=== PATIENT | female | born 1935 | race Caucasian/White ===

== ENCOUNTER → 2016-06-16 | Outpatient (CLI) | payer MEDICARE ==
[~2016-06-16] MED LIST: ARTIDRO EACH EYE; CANA1TAB4 PO; FOSA70TA PO; GLIP5 PO; JANT5TAB2 PO; LISI-357 PO; METO50TA PO; ROSU10 PO
[2016-06-16 12:56] LABS: HEMATOCRIT 41.4 % (35.0-46.0); MEAN CELL VOLUME 81.4 FL (80.0-100.0); MEAN CORPUSCULAR HEMOGLOBIN 26.3 PG (27.0-34.0); MEAN CORPUSCULAR HGB CONC 32.3 % (32.0-36.0); PLATELET COUNT 333 TH/MM3 (150-450); RED BLOOD COUNT 5.09 MIL/MM3 (4.00-5.30); RED CELL DISTRIBUTION WIDTH 13.4 % (11.6-17.2); REVIEW FLAG FINAL; WHITE BLOOD COUNT 8.3 TH/MM3 (4.0-11.0)
[2016-06-16 13:37] LABS: ALKALINE PHOSPHATASE 74 U/L (45-117); ALT (GPT) 25 U/L (10-53); ANION GAP 7 MEQ/L (5-15); AST (GOT) 14 U/L (15-37); BLOOD UREA NITROGEN 15 MG/DL (7-18); CHLORIDE 103 MEQ/L (98-107); GLOMERULAR FILTRATION RATE 65 ML/MIN (>89); GLUCOSE,FASTING 164 MG/DL (74-99); LDL CHOLESTEROL 115 MG/DL (0-99); LDL CHOLESTEROL DIRECT 141 MG/DL (0-99); POTASSIUM 5.2 MEQ/L (3.5-5.1); SODIUM (NA) 140 MEQ/L (136-145); TOTAL BILIRUBIN ADULT 0.3 MG/DL (0.2-1.0)
[2016-06-16 16:22] LABS: HEMOGLOBIN A1a 1.4 %; HEMOGLOBIN A1b 1.2 %; HEMOGLOBIN Ao 79.4 %; HEMOGLOBIN F 1.9 %; HEMOGLOBIN LA1C 2.4 %; HEMOGLOBIN P3 4.7 %
== END ==
LOC: PLAB 08:44
PROVIDERS: ATTEND Internal Medicine
DX: E11.65 Type 2 diabetes mellitus with hyperglycemia (principal); I10 Essential (primary) hypertension; E78.5 Hyperlipidemia, unspecified
CPT/HCPCS: 36415; 80053; 80061; 82043; 83036; 83721; 85027

== ENCOUNTER → 2016-07-29 | Outpatient (CLI) | payer MEDICARE ==
[2016-07-29 13:47] LABS: ANION GAP 8 MEQ/L (5-15); AST (GOT) 16 U/L (15-37); BICARBONATE 27.4 MEQ/L (21.0-32.0); BLOOD UREA NITROGEN 12 MG/DL (7-18); CHLORIDE 106 MEQ/L (98-107); GLOMERULAR FILTRATION RATE 69 ML/MIN (>89); GLUCOSE,FASTING 216 MG/DL (74-99); POTASSIUM 4.7 MEQ/L (3.5-5.1); SODIUM (NA) 141 MEQ/L (136-145)
[2016-07-29 13:56] LABS: ALKALINE PHOSPHATASE 54 U/L (45-117); ALT (GPT) 23 U/L (10-53); TOTAL BILIRUBIN ADULT 0.4 MG/DL (0.2-1.0)
[2016-07-29 16:17] LABS: HEMOGLOBIN A1a 1.4 %; HEMOGLOBIN A1b 1.1 %; HEMOGLOBIN Ao 79.2 %; HEMOGLOBIN F 1.8 %; HEMOGLOBIN LA1C 2.9 %; HEMOGLOBIN P3 4.8 %
[2016-07-29 16:47] LABS: MICRO ALBUMIN RANDOM URINE RAW 17.6 MG/L (0.0-30.0)
== END ==
LOC: PLAB 08:39
PROVIDERS: ATTEND Internal Medicine
DX: I10 Essential (primary) hypertension (principal); E11.65 Type 2 diabetes mellitus with hyperglycemia
CPT/HCPCS: 36415; 80053; 82043; 83036

== ENCOUNTER → 2016-10-28 | Outpatient (CLI) | payer MEDICARE ==
[2016-10-28 13:52] LABS: HEMATOCRIT 41.8 % (35.0-46.0); MEAN CELL VOLUME 83.1 FL (80.0-100.0); MEAN CORPUSCULAR HGB CONC 32.5 % (32.0-36.0); PLATELET COUNT 242 TH/MM3 (150-450); RED BLOOD COUNT 5.03 MIL/MM3 (4.00-5.30); RED CELL DISTRIBUTION WIDTH 13.9 % (11.6-17.2); REVIEW FLAG FINAL; WHITE BLOOD COUNT 7.1 TH/MM3 (4.0-11.0)
[2016-10-28 14:15] LABS: ANION GAP 9 MEQ/L (5-15); AST (GOT) 20 U/L (15-37); BICARBONATE 25.8 MEQ/L (21.0-32.0); BLOOD UREA NITROGEN 13 MG/DL (7-18); CHLORIDE 107 MEQ/L (98-107); GLOMERULAR FILTRATION RATE 63 ML/MIN (>89); GLUCOSE,FASTING 109 MG/DL (74-99); POTASSIUM 4.2 MEQ/L (3.5-5.1); SODIUM (NA) 142 MEQ/L (136-145)
[2016-10-28 14:22] LABS: ALKALINE PHOSPHATASE 56 U/L (45-117); ALT (GPT) 23 U/L (10-53); LDL CHOLESTEROL 46 MG/DL (0-99); LDL CHOLESTEROL DIRECT 56 MG/DL (0-99); TOTAL BILIRUBIN ADULT 0.5 MG/DL (0.2-1.0)
[2016-10-28 14:28] LABS: MICRO ALBUMIN RANDOM URINE RAW 33.8 MG/L (0.0-30.0)
[2016-10-28 16:46] LABS: HEMOGLOBIN A1a 1.3 %; HEMOGLOBIN A1b 1.1 %; HEMOGLOBIN Ao 81.8 %; HEMOGLOBIN F 1.6 %; HEMOGLOBIN LA1C 2.1 %; HEMOGLOBIN P3 4.1 %
== END ==
LOC: PLAB 09:20
PROVIDERS: ATTEND Internal Medicine
DX: E11.65 Type 2 diabetes mellitus with hyperglycemia (principal); I10 Essential (primary) hypertension; E78.5 Hyperlipidemia, unspecified
CPT/HCPCS: 36415; 80053; 80061; 82043; 83036; 83721; 85027

== ENCOUNTER → 2017-02-27 | Outpatient (CLI) | payer MEDICARE ==
[2017-02-27 13:11] LABS: HEMATOCRIT 42.7 % (35.0-46.0); MEAN CELL VOLUME 84.8 FL (80.0-100.0); MEAN CORPUSCULAR HGB CONC 31.8 % (32.0-36.0); PLATELET COUNT 300 TH/MM3 (150-450); RED BLOOD COUNT 5.04 MIL/MM3 (4.00-5.30); RED CELL DISTRIBUTION WIDTH 14.5 % (11.6-17.2); REVIEW FLAG FINAL
[2017-02-27 13:30] LABS: MICRO ALBUMIN RANDOM URINE RAW 19.5 MG/L (0.0-30.0)
[2017-02-27 13:40] LABS: ANION GAP 4 MEQ/L (5-15); AST (GOT) 22 U/L (15-37); BLOOD UREA NITROGEN 13 MG/DL (7-18); CHLORIDE 110 MEQ/L (98-107); GLOMERULAR FILTRATION RATE 55 ML/MIN (>89); GLUCOSE,FASTING 146 MG/DL (74-99); POTASSIUM 5.5 MEQ/L (3.5-5.1); SODIUM (NA) 143 MEQ/L (136-145)
[2017-02-27 13:41] LABS: HEMOGLOBIN A1a 1.3 %; HEMOGLOBIN A1b 1.1 %; HEMOGLOBIN F 1.5 %; HEMOGLOBIN LA1C 2.3 %; HEMOGLOBIN P3 4.2 %
[2017-02-27 13:44] LABS: ALKALINE PHOSPHATASE 67 U/L (45-117); ALT (GPT) 22 U/L (10-53); HDL CHOLESTEROL 53.5 MG/DL (40.0-60.0); LDL CHOLESTEROL 113 MG/DL (0-99); LDL CHOLESTEROL DIRECT 136 MG/DL (0-99); TOTAL BILIRUBIN ADULT 0.3 MG/DL (0.2-1.0)
== END ==
LOC: PLAB 08:40
PROVIDERS: ATTEND Internal Medicine
DX: E11.65 Type 2 diabetes mellitus with hyperglycemia (principal); I10 Essential (primary) hypertension; Z13.9 Encounter for screening, unspecified
CPT/HCPCS: 36415; 80053; 80061; 82043; 83036; 83721; 85027

== ENCOUNTER → 2017-07-10 | Outpatient (CLI) | payer MEDICARE ==
[2017-07-10 10:32] LABS: HEMATOCRIT 36.8 % (35.0-46.0); HEMOGLOBIN 11.8 GM/DL (11.6-15.3); MEAN CELL VOLUME 83.8 FL (80.0-100.0); MEAN CORPUSCULAR HEMOGLOBIN 26.9 PG (27.0-34.0); MEAN CORPUSCULAR HGB CONC 32.1 % (32.0-36.0); PLATELET COUNT 345 TH/MM3 (150-450); RED BLOOD COUNT 4.39 MIL/MM3 (4.00-5.30); RED CELL DISTRIBUTION WIDTH 13.9 % (11.6-17.2)
[2017-07-10 10:59] LABS: ALBUMIN 3.5 GM/DL (3.4-5.0); AST (GOT) 20 U/L (15-37); BICARBONATE 26.3 MEQ/L (21.0-32.0); BLOOD UREA NITROGEN 21 MG/DL (7-18); CALCIUM 9.2 MG/DL (8.5-10.1); CHLORIDE 108 MEQ/L (98-107); CHOLESTEROL 118 MG/DL (120-200); CREATININE 0.88 MG/DL (0.50-1.00); GLOMERULAR FILTRATION RATE 62 ML/MIN (>89); GLUCOSE,FASTING 168 MG/DL (74-99); SODIUM (NA) 141 MEQ/L (136-145)
[2017-07-10 11:01] LABS: ALKALINE PHOSPHATASE 72 U/L (45-117); ALT (GPT) 17 U/L (10-53); CHOLESTEROL/ HDL RATIO 2.65 RATIO; HDL CHOLESTEROL 44.4 MG/DL (40.0-60.0); LDL CHOLESTEROL 40 MG/DL (0-99); LDL CHOLESTEROL DIRECT 62 MG/DL (0-99); TOTAL BILIRUBIN ADULT 0.3 MG/DL (0.2-1.0); TOTAL PROTEIN 7.4 GM/DL (6.4-8.2); TRIGLYCERIDES 169 MG/DL (42-150)
[2017-07-10 16:20] LABS: HEMOGLOBIN A1C 7.5 % (4.3-6.0)
== END ==
LOC: PLAB 08:37
PROVIDERS: ATTEND Internal Medicine
DX: I48.91 Unspecified atrial fibrillation (principal); E11.65 Type 2 diabetes mellitus with hyperglycemia; I10 Essential (primary) hypertension
CPT/HCPCS: 36415; 80053; 80061; 82043; 83036; 83721; 85027

== ENCOUNTER 2017-07-18 11:09 | Inpatient (IN) | payer MEDICARE ==
[~2017-07-18] VITALS: Ht 160 cm; Wt 78.8 kg
[2017-07-18 11:17] VITALS: BP 171/72; PULSE 85; RESP 16; TEMP 99; O2SAT 94
[2017-07-18] MEDS ORDERED: GLIP10TA6 PO (12:55)
[2017-07-18] MEDS ORDERED: METO50TA PO (12:55)
[2017-07-18] MEDS ORDERED: ATOR20TA15 PO (12:55)
[2017-07-18] MEDS ORDERED: APIX5TAB PO (12:55)
[2017-07-18] MEDS ORDERED: LISI-519 PO (12:55)
[2017-07-18] MEDS ORDERED: FOSA70TA PO (12:55)
[2017-07-18] MEDS ORDERED: CANA1TAB4 PO (12:55)
--- NOTE | 2017-07-18 13:23 | PD ---
HPI Chief Complaint: GI Complaint Time Seen by Provider: 13:22 Travel History International Travel<30 days: No Contact w/Intl Traveler<30days: No Traveled to known affect area: No History of Present Illness HPI 81-year-old female came to the emergency room with history of rectal bleed that started last night. This morning the bleeding was significant and hence she is here. She is on blood thinner. No history of lightheadedness or dizziness. Vital signs are stable. This has never happened to her in the past. She had a colonoscopy many years ago which showed diverticulitis as per the patient. [facility] Past Medical History Narrative Medical The list of past medical, surgical, social and family history is from the nursing note. Hx Anticoagulant Therapy: Yes Heart Rhythm Problems: Yes Cancer: No Cardiovascular Problems: Yes (htn on meds) High Cholesterol: Yes Cerebrovascular Accident: Yes (cva, tia's) Diabetes: Yes (type 2) Patient Takes Glucophage: Yes Diminished Hearing: No Endocrine: Yes Glaucoma: No Genitourinary: Yes Hepatitis: No Hiatal Hernia: No Hypertension: Yes Immune Disorder: No Kidney Stones: Yes Musculoskeletal: No Neurologic: Yes Psychiatric: No Reproductive: No Respiratory: No Thyroid Disease: No Influenza Vaccination: Yes ?: Not Tubal Ligation: Yes Past Surgical History Eye Surgery: Yes (BILATERAL UPPER BLEPH) Gynecologic Surgery: Yes (TUBAL LIGATION) Pacemaker: No Other Surgery: Yes Social History Alcohol Use: No Tobacco Use: No Substance Use: No Allergies-Medications (Allergen,Severity, Reaction): Coded Allergies: No Known Allergies (Verified Allergy, Unknown, 07/18/17) Comments No known drug allergies Reported Meds & Prescriptions Reported Meds & Active Scripts Active Reported Metoprolol Tartrate 50 Mg Tab 50 Mg PO DAILY Invokamet (Canagliflozin-Metformin) 150-1,000 Mg Tab 1 Tab PO DAILY Take with meals. Avoid ethanol. Lisinopril 5 Mg Tab 5 Mg PO DAILY Glipizide 10 Mg Tab 10 Mg PO BIDAC Take 30 minutes before a meal Eliquis (Apixaban) 5 Mg Tab 5 Mg PO DAILY Fosamax (Alendronate Sodium) 70 Mg Tab 70 Mg PO Q7D Atorvastatin (Atorvastatin Calcium) 20 Mg Tab 20 Mg PO HS Narrative Medication List of his home medications reviewed from the nursing note. Review of Systems Except as stated in HPI: all other systems reviewed are Neg Gastrointestinal: Positive: Hematochezia Physical Exam Narrative GENERAL: Awake, alert, obese, mild distress SKIN: Focused skin assessment warm/dry. HEAD: Atraumatic. Normocephalic. EYES: Pupils equal and round. No scleral icterus. No injection or drainage. ENT: No nasal bleeding or discharge. Mucous membranes pink and moist. NECK: Trachea midline. No JVD. CARDIOVASCULAR: Regular rate and rhythm. No murmur appreciated. RESPIRATORY: No accessory muscle use. Clear to auscultation. Breath sounds equal bilaterally. GASTROINTESTINAL: Abdomen soft, non-tender, nondistended. Hepatic and splenic margins not palpable. MUSCULOSKELETAL: No obvious deformities. No clubbing. No cyanosis. No edema. NEUROLOGICAL: Awake and alert. No obvious cranial nerve deficits. Motor grossly within normal limits. Normal speech. PSYCHIATRIC: Appropriate mood and affect; insight and judgment normal. Data Data Last Documented VS Vital Signs Date Time Temp Pulse Resp B/P (MAP) Pulse Ox O2 Delivery O2 Flow Rate FiO2 07/18/17 14:20 78 95/79 (84) 92 07/18/17 14:01 16 07/18/17 11:17 99.0 Orders Orders Iv Access Insert/Monitor (07/18/17 13:17) Complete Blood Count With Diff (07/18/17 13:17) Basic Metabolic Panel (Bmp) (07/18/17 13:17) Admit Order (Ed Use Only) (07/18/17 14:59) Labs Laboratory Tests Test 07/18/17 13:59 White Blood Count 9.6 TH/MM3 Red Blood Count 4.28 MIL/MM3 Hemoglobin 11.2 GM/DL Hematocrit 34.4 % Mean Corpuscular Volume 80.2 FL Mean Corpuscular Hemoglobin 26.2 PG Mean Corpuscular Hemoglobin Concent 32.7 % Red Cell Distribution Width 12.9 % Platelet Count 420 TH/MM3 Mean Platelet Volume 7.5 FL Neutrophils (%) (Auto) 74.5 % Lymphocytes (%) (Auto) 18.3 % Monocytes (%) (Auto) 5.7 % Eosinophils (%) (Auto) 1.2 % Basophils (%) (Auto) 0.3 % Neutrophils # (Auto) 7.2 TH/MM3 Lymphocytes # (Auto) 1.8 TH/MM3 Monocytes # (Auto) 0.5 TH/MM3 Eosinophils # (Auto) 0.1 TH/MM3 Basophils # (Auto) 0.0 TH/MM3 CBC Comment DIFF FINAL Differential Comment Blood Urea Nitrogen 17 MG/DL Creatinine 0.71 MG/DL Random Glucose 100 MG/DL Calcium Level 8.8 MG/DL Sodium Level 140 MEQ/L Potassium Level 4.8 MEQ/L Chloride Level 109 MEQ/L Carbon Dioxide Level 22.3 MEQ/L Anion Gap 9 MEQ/L Estimat Glomerular Filtration Rate 79 ML/MIN MDM Medical Decision Making Medical Screen Exam Complete: Yes Emergency Medical Condition: Yes Medical Record Reviewed: Yes Differential Diagnosis Lower GI bleed, upper GI bleed Narrative Course 1:39 PM after I saw the patient examined her and discussed the plan with the patient and the family I came out and I was told by the second physician that he had already seen this patient. I will not be following this patient anymore but because I had done the rectal exam I have done the documentation. Procedures EKG Prior to Arrival: No HemaPrompt Point of Care Internal Pos. & Neg. Controls: Passed Fecal Specimen Occult Blood: Positive Jessi Velasquez MD Jul 18, 2017 13:22
--- NOTE | 2017-07-18 13:25 | PD ---
HPI Chief Complaint: GI Complaint Time Seen by Provider: 13:08 Travel History International Travel<30 days: No Contact w/Intl Traveler<30days: No Traveled to known affect area: No History of Present Illness HPI The patient was seen and examined in the presence of the nurse. This patient complains of rectal bleeding. Started yesterday evening. She had some bright red rectal bleeding. No prior history of rectal bleeding. She is taking Eliquis for history of A. fib. Had a colonoscopy 3 years ago. Symptoms severity is mild to moderate. No alleviating factors. Symptoms exacerbated by her anticoagulants. Duration one day PFSH Past Medical History Hx Anticoagulant Therapy: Yes Heart Rhythm Problems: Yes Cancer: No Cardiovascular Problems: Yes (htn on meds) High Cholesterol: Yes Cerebrovascular Accident: Yes (cva, tia's) Diabetes: Yes (type 2) Patient Takes Glucophage: Yes Diminished Hearing: No Endocrine: Yes Glaucoma: No Genitourinary: Yes Hepatitis: No Hiatal Hernia: No Hypertension: Yes Immune Disorder: No Kidney Stones: Yes Musculoskeletal: No Neurologic: Yes Psychiatric: No Reproductive: No Respiratory: No Thyroid Disease: No Influenza Vaccination: Yes ?: Not Tubal Ligation: Yes Past Surgical History Eye Surgery: Yes (BILATERAL UPPER BLEPH) Gynecologic Surgery: Yes (TUBAL LIGATION) Pacemaker: No Other Surgery: Yes Social History Alcohol Use: No Tobacco Use: No Substance Use: No Allergies-Medications (Allergen,Severity, Reaction): Coded Allergies: No Known Allergies (Verified Adverse Reaction, Unknown, 07/18/17) Reported Meds & Prescriptions Reported Meds & Active Scripts Active Reported Metoprolol Tartrate 50 Mg Tab 50 Mg PO DAILY Invokamet (Canagliflozin-Metformin) 150-1,000 Mg Tab 1 Tab PO DAILY Take with meals. Avoid ethanol. Lisinopril 5 Mg Tab 5 Mg PO DAILY Glipizide 10 Mg Tab 10 Mg PO BIDAC Take 30 minutes before a meal Eliquis (Apixaban) 5 Mg Tab 5 Mg PO DAILY Fosamax (Alendronate Sodium) 70 Mg Tab 70 Mg PO Q7D Atorvastatin (Atorvastatin Calcium) 20 Mg Tab 20 Mg PO HS Review of Systems General / Constitutional: No: Fever Eyes: No: Visual changes HENT: No: Headaches Cardiovascular: Positive: Irregular Rhythm, No: Chest Pain or Discomfort Respiratory: No: Shortness of Breath Gastrointestinal: Positive: Hematochezia, No: Abdominal Pain Genitourinary: No: Dysuria Musculoskeletal: No: Pain Skin: No Rash Neurologic: No: Weakness Psychiatric: No: Depression Endocrine: No: Polydipsia Hematologic/Lymphatic: No: Easy Bruising Physical Exam Narrative GENERAL: Well-nourished, well-developed patient in no apparent distress. SKIN: Focused skin assessment reveals no rash and nodules. Skin is Warm and dry. HEAD: Atraumatic. Normocephalic. EYES: Pupils equal and round. No scleral icterus. No injection or drainage. ENT: No nasal bleeding or discharge. Mucous membranes pink and moist. NECK: Trachea midline. No JVD. CARDIOVASCULAR: Irregularly irregular rhythm. No murmur appreciated. RESPIRATORY: No accessory muscle use. Clear to auscultation. Breath sounds equal bilaterally. GASTROINTESTINAL: Abdomen soft, non-tender, nondistended. Hepatic and splenic margins not palpable. MUSCULOSKELETAL: No obvious deformities. No clubbing. No cyanosis. No edema. NEUROLOGICAL: Awake and alert. No obvious cranial nerve deficits. Motor grossly within normal limits. Normal speech. PSYCHIATRIC: Appropriate mood and affect; insight and judgment normal. Rectal: No external hemorrhoid or fissure. There is some dried blood around the anal opening Data Data Last Documented VS Vital Signs Date Time Temp Pulse Resp B/P (MAP) Pulse Ox O2 Delivery O2 Flow Rate FiO2 07/18/17 14:20 78 95/79 (84) 92 07/18/17 14:01 16 07/18/17 11:17 99.0 Orders Orders Iv Access Insert/Monitor (07/18/17 13:17) Complete Blood Count With Diff (07/18/17 13:17) Basic Metabolic Panel (Bmp) (07/18/17 13:17) Labs Laboratory Tests Test 07/18/17 13:59 White Blood Count 9.6 TH/MM3 Red Blood Count 4.28 MIL/MM3 Hemoglobin 11.2 GM/DL Hematocrit 34.4 % Mean Corpuscular Volume 80.2 FL Mean Corpuscular Hemoglobin 26.2 PG Mean Corpuscular Hemoglobin Concent 32.7 % Red Cell Distribution Width 12.9 % Platelet Count 420 TH/MM3 Mean Platelet Volume 7.5 FL Neutrophils (%) (Auto) 74.5 % Lymphocytes (%) (Auto) 18.3 % Monocytes (%) (Auto) 5.7 % Eosinophils (%) (Auto) 1.2 % Basophils (%) (Auto) 0.3 % Neutrophils # (Auto) 7.2 TH/MM3 Lymphocytes # (Auto) 1.8 TH/MM3 Monocytes # (Auto) 0.5 TH/MM3 Eosinophils # (Auto) 0.1 TH/MM3 Basophils # (Auto) 0.0 TH/MM3 CBC Comment DIFF FINAL Differential Comment Blood Urea Nitrogen 17 MG/DL Creatinine 0.71 MG/DL Random Glucose 100 MG/DL Calcium Level 8.8 MG/DL Sodium Level 140 MEQ/L Potassium Level 4.8 MEQ/L Chloride Level 109 MEQ/L Carbon Dioxide Level 22.3 MEQ/L Anion Gap 9 MEQ/L Estimat Glomerular Filtration Rate 79 ML/MIN MDM Medical Decision Making Medical Screen Exam Complete: Yes Emergency Medical Condition: Yes Medical Record Reviewed: Yes Differential Diagnosis AV malformation, diverticulosis, internal hemorrhoid, medication side effect Narrative Course I have reviewed the patient's electronic medical record. Patient had lab studies is ago that I reviewed including hemoglobin of 11.8 drawn 8 days ago IV placed CBC shows hemoglobin 11.2 Metabolic profile reasonably normal Patient has new-onset bright red rectal bleeding in the setting of Eliquis therapy for A. fib. Given that she is on a blood thinner which is not reversible and that she has no personal GI doctor to follow up with I think it prudent to hospitalize her I reviewed with hospitalist who will admit Diagnosis Primary Impression: Rectal bleeding Additional Impressions: Atrial fibrillation Qualified Codes: I48.2 - Chronic atrial fibrillation Anticoagulated Admitting Information Admitting Physician Requests: Admit Nestor Linder MD Jul 18, 2017 13:24
[2017-07-18 14:01] VITALS: BP 190/90; PULSE 76; RESP 16; O2SAT 92
[2017-07-18 14:09] LABS: AUTOMATED NEUTROPHIL # 7.2 TH/MM3 (1.8-7.7); BASOPHIL % 0.3 % (0.0-2.0); EOSINOPHIL # 0.1 TH/MM3 (0-0.4); EOSINOPHIL % 1.2 % (0.0-4.0); HEMATOCRIT 34.4 % (35.0-46.0); HEMOGLOBIN 11.2 GM/DL (11.6-15.3); LYMPH % 18.3 % (9.0-44.0); LYMPHOCYTE # 1.8 TH/MM3 (1.0-4.8); MEAN CELL VOLUME 80.2 FL (80.0-100.0); MEAN CORPUSCULAR HEMOGLOBIN 26.2 PG (27.0-34.0); MEAN CORPUSCULAR HGB CONC 32.7 % (32.0-36.0); MEAN PLATELET VOLUME 7.5 FL (7.0-11.0); MONO % 5.7 % (0.0-8.0); MONOCYTE # 0.5 TH/MM3 (0-0.9); NEUT % 74.5 % (16.0-70.0); PLATELET COUNT 420 TH/MM3 (150-450); RED BLOOD COUNT 4.28 MIL/MM3 (4.00-5.30); RED CELL DISTRIBUTION WIDTH 12.9 % (11.6-17.2); WHITE BLOOD COUNT 9.6 TH/MM3 (4.0-11.0)
[2017-07-18 14:20] VITALS: BP 95/79; PULSE 78; O2SAT 92
[2017-07-18 14:22] LABS: CALCIUM 8.8 MG/DL (8.5-10.1)
[2017-07-18 14:23] LABS: BICARBONATE 22.3 MEQ/L (21.0-32.0)
[2017-07-18 14:26] LABS: CREATININE 0.71 MG/DL (0.50-1.00)
[2017-07-18 15:14] VITALS: BP 185/93; PULSE 72; RESP 16; O2SAT 98
[2017-07-18] MEDS ORDERED: SODIUM CHLOR 0.9% 1000 ML INJ 1,000 ML IV SCH (15:22)
[2017-07-18] MEDS ORDERED: NALOXONE HCL 0.4 MG/ML AMP IV PUSH PRN (15:30)
[2017-07-18] MEDS ORDERED: ACETAMINOPHEN 325 MG TAB PO PRN (15:30)
[2017-07-18] MEDS ORDERED: SODIUM CHLORIDE 0.9% FLUSH 10 ML FLUSH IV FLUSH PRN (15:30)
[2017-07-18] MEDS ORDERED: ONDANSETRON HCL 4 MG/2 ML VIAL IVP PRN (15:30)
--- NOTE | 2017-07-18 15:44 | HHI.HP ---
[facility] Service [facility] Primary Care Physician Nahede Green MD Admission Diagnosis rectal bleeding, anticoagulated Diagnoses: (1) Rectal bleeding Diagnosis: Principal Chief Complaint: Bright red blood per rectum Travel History International Travel<30 Days: No Contact w/Intl Traveler <30 Da: No Traveled to Known Affected Are: No History of Present Illness 81-year-old female with known history of hypertension, diabetes, history TIA, atrial fibrillation, anticoagulated on Eliquis who presented to the emergency department because of bright red blood in the toilet. Patient states that it started last night when she went to the bathroom and noticed a couple spots of bright red blood on the toilet paper. However this morning when she had a bowel movement she noticed that there was red blood mixed with her stool and also in the toilet. Because of that reason she came to emergency department for evaluation. Patient denies any actual pain, no lightheadedness, dizziness, shortness of breath, dyspnea. Hemoglobin was 11.2. Patient is anticoagulated on Eliquis secondary to atrial fibrillation and previous stroke. Because of that reason is recommended that the patient be admitted the hospital for further evaluation and management. She indicates that she had colonoscopy done approximately 8 years ago and at that time she was told that she had diverticulosis. She has not had any follow-up endoscopy since then. Review of Systems Gastrointestinal: COMPLAINS OF: Bloody stools Past Family Social History Past Medical History Hypertension Hyperlipidemia Diabetes Atrial fibrillation History stroke Past Surgical History Colonoscopy Tubal ligation Cataract surgery Reported Medications Reported Meds & Active Scripts Active Reported Metoprolol Tartrate 50 Mg Tab 50 Mg PO DAILY Invokamet (Canagliflozin-Metformin) 150-1,000 Mg Tab 1 Tab PO DAILY Take with meals. Avoid ethanol. Lisinopril 5 Mg Tab 5 Mg PO DAILY Glipizide 10 Mg Tab 10 Mg PO BIDAC Take 30 minutes before a meal Eliquis (Apixaban) 5 Mg Tab 5 Mg PO DAILY Fosamax (Alendronate Sodium) 70 Mg Tab 70 Mg PO Q7D Atorvastatin (Atorvastatin Calcium) 20 Mg Tab 20 Mg PO HS Allergies: Coded Allergies: No Known Allergies (Verified Allergy, Unknown, 07/18/17) Family History Reviewed is significant for mother having hypertension, diabetes Social History Patient denies any tobacco, alcohol or illicit drugs Physical Exam Vital Signs Vital Signs Date Time Temp Pulse Resp B/P (MAP) Pulse Ox O2 Delivery O2 Flow Rate FiO2 07/18/17 15:14 72 16 185/93 (123) 98 07/18/17 14:20 78 95/79 (84) 92 07/18/17 14:01 76 16 190/90 (123) 92 07/18/17 11:17 99.0 85 16 171/72 (105) 94 Physical Exam GENERAL: Well-developed, well-nourished, in no acute distress. alert and orientated HEENT: Head is normocephalic without any lesions or masses noted. Facial features are symmetric. Eyes: Pupils equal round reactive to light. Extraocular muscles are intact. Conjunctivae were clear. Oropharyngeal: Pharynx without any erythema edema. Tongue is midline without deviation. Buccal mucosa is moist without any masses or lesions NECK: Supple without any masses. Trachea midline no deviation. No JVD, no bruits are appreciated CARDIAC: Regular rhythm, regular rate. S1/S2 are heard. 1/6 ejection murmur noted in the aortic region. No Gallops or rubs. LUNGS: Clear to auscultation bilaterally. No wheeze, rhonchi or rales. No use of accessory muscles on inspiration or expiration. ABDOMEN: Soft, nontender. Nondistended. Bowel sounds heard in all 4 quadrants. No organomegaly or masses. Negative rebound, negative guarding EXTREMITIES: No edema, pulses are equal bilaterally. No cyanosis or clubbing NEUROLOGY: Mood and affect appear appropriate. Cranial nerves II through XII grossly intact. Muscle strength 5/5 in upper and lower extremities bilaterally. Deep tendon reflexes are 2+ in upper and lower extremities bilaterally. Laboratory Laboratory Tests Test 07/18/17 13:59 White Blood Count 9.6 Red Blood Count 4.28 Hemoglobin 11.2 Hematocrit 34.4 Mean Corpuscular Volume 80.2 Mean Corpuscular Hemoglobin 26.2 Mean Corpuscular Hemoglobin Concent 32.7 Red Cell Distribution Width 12.9 Platelet Count 420 Mean Platelet Volume 7.5 Neutrophils (%) (Auto) 74.5 Lymphocytes (%) (Auto) 18.3 Monocytes (%) (Auto) 5.7 Eosinophils (%) (Auto) 1.2 Basophils (%) (Auto) 0.3 Neutrophils # (Auto) 7.2 Lymphocytes # (Auto) 1.8 Monocytes # (Auto) 0.5 Eosinophils # (Auto) 0.1 Basophils # (Auto) 0.0 CBC Comment DIFF FINAL Differential Comment Blood Urea Nitrogen 17 Creatinine 0.71 Random Glucose 100 Calcium Level 8.8 Sodium Level 140 Potassium Level 4.8 Chloride Level 109 Carbon Dioxide Level 22.3 Anion Gap 9 Estimat Glomerular Filtration Rate 79 Result Diagram: 07/18/17 1359 07/18/17 1359 Caprini VTE Risk Assessment Caprini VTE Risk Assessment: Mod/High Risk (score >= 2) Caprini Risk Assessment Model Point Value = 1 Point Value = 2 Point Value = 3 Point Value = 5 Age 41-60 Minor surgery BMI > 25 kg/m2 Swollen legs Varicose veins or History of unexplained or recurrent spontaneous Oral contraceptives or hormone replacement Sepsis (< 1 month) Serious lung disease, including pneumonia (< 1 month) Abnormal pulmonary function Acute myocardial infarction Congestive heart failure (< 1 month) History of inflammatory bowel disease Medical patient at bed rest Age 61-74 Arthroscopic surgery Major open surgery (> 45 min) Laparoscopic surgery (> 45 min) Malignancy Confined to bed (> 72 hours) Immobilizing plaster cast Central venous access Age >= 75 History of VTE Family history of VTE Factor V Leiden Prothrombin [id number] Lupus anticoagulant Anticardiolipin antibodies Elevated serum homocysteine Heparin-induced thrombocytopenia Other congenital or acquired thrombophilia Stroke (< 1 month) Elective arthroplasty Hip, pelvis, or leg fracture Acute spinal cord injury (< 1 month) Prophylaxis Regimen Total Risk Factor Score Risk Level Prophylaxis Regimen 0-1 Low Early ambulation 2 Moderate Order ONE of the following: *Sequential Compression Device (SCD) *Heparin 5000 units SQ BID 3-4 Higher Order ONE of the following medications: *Heparin 5000 units SQ TID *Enoxaparin/Lovenox 40 mg SQ daily (WT < 150 kg, CrCl > 30 mL/min) *Enoxaparin/Lovenox 30 mg SQ daily (WT < 150 kg, CrCl > 10-29 mL/min) *Enoxaparin/Lovenox 30 mg SQ BID (WT < 150 kg, CrCl > 30 mL/min) AND/OR *Sequential Compression Device (SCD) 5 or more Highest Order ONE of the following medications: *Heparin 5000 units SQ TID (Preferred with Epidurals) *Enoxaparin/Lovenox 40 mg SQ daily (WT < 150 kg, CrCl > 30 mL/min) *Enoxaparin/Lovenox 30 mg SQ daily (WT < 150 kg, CrCl > 10-29 mL/min) *Enoxaparin/Lovenox 30 mg SQ BID (WT < 150 kg, CrCl > 30 mL/min) AND *Sequential Compression Device (SCD) Assessment and Plan Assessment and Plan Lower GI bleed Patient noticed bright red blood on toilet paper as well as bloody stools this morning Patient complicated with anticoagulation with Eliquis for atrial fibrillation and stroke We'll need to hold anticoagulation at this time GI consultation has been requested, discussed with gastrologist who indicated patient may have clear liquid diet at this time Patient will require colonoscopy, which we plan by security controls assessor We'll monitor hemoglobin and hematocrit Hypertension, hyperlipidemia, atrial fibrillation, history of stroke Will resume patient's home medications, Will hold anticoagulation at this time due to lower GI bleed Diabetes Accu-Cheks with sliding scale insulin DVT prevention sequential compression devices Physician Certification 2 Midnight Certification Type: Admission for Inpatient Services Order for Inpatient Services The services are ordered in accordance with Medicare regulations or non- Medicare payer requirements, as applicable. In the case of services not specified as inpatient-only, they are appropriately provided as inpatient services in accordance with the 2-midnight benchmark. Estimated LOS (days): 2 days is the estimated time the patient will need to remain in the hospital, assuming treatment plan goals are met and no additional complications. Post-Hospital Plan: Not yet determined Nestor Tate Jul 18, 2017 15:44
[2017-07-18] MEDS ORDERED: DEXTROSE 50% IN WATER 50 ML VIAL(D50) IV PUSH PRN (15:45)
[2017-07-18] MEDS ORDERED: GLUCAGON 1 MG/ML VIAL OTHER PRN (15:45)
[2017-07-18 16:00] VITALS: BP 171/68; PULSE 106; PULSE 74; RESP 20; TEMP 96.8; TEMP 98.1; O2SAT 93; O2SAT 94
[2017-07-18] MEDS: INSULIN ASPART SUPPLEMENTAL SCALE SQ SCH ×2 (16:02→21:40)
[2017-07-18] MEDS: cloNIDine HCL 0.1 MG TAB PO PRN (18:05)
[2017-07-18 21:06] VITALS: BP 146/67; PULSE 69; RESP 16; TEMP 97.2; O2SAT 95
[2017-07-18] MEDS: SODIUM CHLORIDE 0.9% FLUSH 10 ML FLUSH IV FLUSH SCH (21:40)
[2017-07-18] MEDS: ATORVASTATIN 20 MG TAB PO SCH (21:40)
[2017-07-18 22:32] LABS: HEMOGLOBIN 10.3 GM/DL (11.6-15.3)
[2017-07-18 22:45] LABS: INTERNATIONAL NORMALIZED RATIO 2.6 RATIO; PROTHROMBIN TIME - PATIENT 25.8 SEC (9.8-11.6)
[2017-07-19 00:42] VITALS: BP 143/65; PULSE 76; RESP 18; TEMP 98.9; O2SAT 96
[2017-07-19] MEDS: METOPROLOL TARTRATE 50 MG TAB PO SCH (07:38)
[2017-07-19] MEDS: SODIUM CHLORIDE 0.9% FLUSH 10 ML FLUSH IV FLUSH SCH ×2 (07:39→19:46)
[2017-07-19] MEDS: INSULIN ASPART SUPPLEMENTAL SCALE SQ SCH ×4 (07:43→19:46)
[2017-07-19 07:49] LABS: BASOPHIL % 0.5 % (0.0-2.0); EOSINOPHIL # 0.1 TH/MM3 (0-0.4); EOSINOPHIL % 1.6 % (0.0-4.0); HEMOGLOBIN 10.4 GM/DL (11.6-15.3); LYMPH % 17.1 % (9.0-44.0); LYMPHOCYTE # 1.6 TH/MM3 (1.0-4.8); MEAN CELL VOLUME 81.9 FL (80.0-100.0); MEAN CORPUSCULAR HEMOGLOBIN 25.9 PG (27.0-34.0); MEAN CORPUSCULAR HGB CONC 31.6 % (32.0-36.0); MEAN PLATELET VOLUME 8.2 FL (7.0-11.0); MONO % 7.7 % (0.0-8.0); MONOCYTE # 0.7 TH/MM3 (0-0.9); NEUT % 73.1 % (16.0-70.0); PLATELET COUNT 379 TH/MM3 (150-450); RED BLOOD COUNT 4.03 MIL/MM3 (4.00-5.30); RED CELL DISTRIBUTION WIDTH 12.9 % (11.6-17.2); WHITE BLOOD COUNT 9.4 TH/MM3 (4.0-11.0)
[2017-07-19 08:00] VITALS: BP 188/75; PULSE 90; RESP 20; TEMP 97.5; O2SAT 94
--- NOTE | 2017-07-19 08:02 | HHI.PR ---
Subjective Remarks Patient seen and examined today for follow-up on lower GI bleed. Patient is doing well. Patient states that she went to the bathroom she did have a couple drops of blood following to the toilet. Patient has remained hemodynamically stable. Objective Vitals Vital Signs Date Time Temp Pulse Resp B/P (MAP) Pulse Ox O2 Delivery O2 Flow Rate FiO2 07/19/17 04:52 07/19/17 00:42 98.9 76 18 143/65 (91) 96 07/18/17 21:06 97.2 69 16 146/67 (93) 95 07/18/17 16:00 98.1 74 20 171/68 (102) 94 07/18/17 15:52 07/18/17 15:14 72 16 185/93 (123) 98 07/18/17 14:20 78 95/79 (84) 92 07/18/17 14:01 76 16 190/90 (123) 92 07/18/17 11:17 99.0 85 16 171/72 (105) 94 Result Diagram: 07/19/17 0710 07/19/17 0710 Objective Remarks GENERAL: Well-developed, well-nourished, in no acute distress. alert and orientated HEENT: Head is normocephalic without any lesions or masses noted. Facial features are symmetric. Eyes: Extraocular muscles are intact. Conjunctivae were clear. NECK: Supple without any masses. Trachea midline no deviation. No JVD, CARDIAC: Regular rhythm, regular rate. S1/S2 are heard. 1/6 ejection murmur noted in the aortic region. No Gallops or rubs. LUNGS: Clear to auscultation bilaterally. No wheeze, rhonchi or rales. No use of accessory muscles on inspiration or expiration. ABDOMEN: Soft, nontender. Nondistended. Bowel sounds heard in all 4 quadrants. No organomegaly or masses. Negative rebound, negative guarding EXTREMITIES: No edema, pulses are equal bilaterally. No cyanosis or clubbing NEUROLOGY: Mood and affect appear appropriate. Cranial nerves II through XII grossly intact. Moving all extremities, speech is clear Urinary Catheter: No Vascular Central Line Catheter: No A/P Assessment and Plan Lower GI bleed Patient complicated with anticoagulation with Eliquis for atrial fibrillation and stroke Anticoagulation has been held at this time GI consultation has been requested, discussed with gastrologist who indicated patient may have clear liquid diet at this time CT the abdomen and pelvis has been requested by GI Colonoscopy planned for tomorrow morning Hemoglobin and hematocrit have remained stable Coagulopathy with INR 2.6 Unknown etiology, patient is not on Coumadin, patient is on Eliquis Repeat PT/INR was 1.1, possible laboratory error Hypertension, hyperlipidemia, atrial fibrillation, history of stroke Patient's home medications have been resumed Blood pressure still labile Lopressor 50 mg daily Lisinopril 5 mg daily increased to twice daily Clonidine as needed Will hold anticoagulation at this time due to lower GI bleed Diabetes Accu-Cheks with sliding scale insulin DVT prevention sequential compression devices Nestor Tate Jul 19, 2017 08:02
[2017-07-19 08:03] LABS: CALCIUM 8.5 MG/DL (8.5-10.1)
[2017-07-19 08:04] LABS: BICARBONATE 22.1 MEQ/L (21.0-32.0)
[2017-07-19 08:07] LABS: CREATININE 0.52 MG/DL (0.50-1.00)
[2017-07-19] MEDS ORDERED: LISINOPRIL 5 MG TAB PO SCH (09:00)
[2017-07-19 10:37] LABS: INTERNATIONAL NORMALIZED RATIO 1.1 RATIO; PROTHROMBIN TIME - PATIENT 10.9 SEC (9.8-11.6)
[2017-07-19] MEDS ORDERED: MAGNESIUM CITRATE SOLN 300 ML BTL PO ONE ×2 (11:00→16:00)
[2017-07-19] MEDS ORDERED: BISACODYL EC 5 MG TABEC PO ONE (11:00)
--- NOTE | 2017-07-19 11:00 | MB ---
cc: FLORINA GARCIA M.D. DATE OF CONSULTATION: 07/19/2017 DATE OF : [address] Puri[address] REASON FOR CONSULTATION GI bleed. HISTORY OF PRESENT ILLNESS Ms. Olmos is a very pleasant 81-year-old lady with multiple medical problems, came to the emergency room with complaints of bright red blood in the toilet. Also, she noted some dark stool. She denies any nausea and vomiting. She had been constipated the week before and she took Ex-Lax. There was no report of constipation the day prior to this event. She denies any weight loss, reflux, dysphagia or any other GI symptoms. Her last colonoscopy was many years ago, according to her it was negative except diverticulosis. She said she was supposed to have an endoscopy but for some reason she did not have it done. She is on blood thinner Eliquis, she took it the night before she came to the emergency room. PAST MEDICAL HISTORY 1. Hypertension. 2. Hyperlipidemia. 3. Diabetes. 4. Obesity. 5. Atrial fibrillation. 6. History of TIA. PAST SURGICAL HISTORY Tubal ligation and cataract surgery. MEDICATIONS 1. Metoprolol. 2. Invokamet. 3. Lisinopril. 4. Glipizide. 5. Eliquis. 6. Fosamax. 7. Atorvastatin. ALLERGIES No known allergies. FAMILY HISTORY Hypertension and diabetes. SOCIAL HISTORY Denies smoking, drinking or drug use. REVIEW OF SYSTEMS CONSTITUTIONAL: On review of systems she denies any fever or chills, weight loss or weight gain. ENT: No alteration in baseline hearing or visual acuity. PULMONARY: Denies any chest pain, shortness of breath. GASTROINTESTINAL: As above. GENITOURINARY: Denies dysuria, hematuria. HEMATOLOGIC: No history of anemia or bleeding disorder. SKIN: No alteration in baseline skin lesion. NEUROLOGIC: No history of TIA or CVA kind of symptoms in the recent past. PHYSICAL EXAMINATION GENERAL: On clinical exam she is sitting comfortably in bed, in no acute distress. Obese. VITAL SIGNS: Temperature is 97.5, pulse 90, respirations 20, blood pressure is 188/75, saturation 96. HEENT: PERRLA. NECK: No JVD. No lymphadenopathy. CHEST: Clear to auscultation on palpation. CARDIOVASCULAR: S1, S2, no murmur. ABDOMEN: Obese. Bowel sounds are present. DAYCARE WORKER: Awake, alert, oriented x3. No focal signs identified. EXTREMITIES: She has a rash on the lower extremities. LABORATORY DATA Her hemoglobin is 10.4, white count 9.4, platelets 379. PT/INR 2.6 and 25.8. Her chemistry is normal. The patient had an abnormal barium enema high at the splenic flexure. There was a small polypoid defect. Direct visualization is recommended. The study was done back in 2001, do not have a more recent one. We will also order a CT abdomen and pelvis. IMAGING STUDIES She did not have a CT abdomen and pelvis done yet. IMPRESSION Rectal bleed, etiology unclear, possible secondary to diverticulosis. Also, she had some black stool, possible upper GI bleed too. RECOMMENDATIONS N.p.o. after midnight, EGD with colonoscopy in the morning. Supportive care. Transfuse p.r.n. CT abdomen and pelvis. Florina Garcia MD BSB/TLL /10:19 AM /10:29 AM [place]
[2017-07-19] MEDS ORDERED: DIATRIZOATE MEGLUM/DIATRIZOATE SOD 9 ML CUP PO ONE (11:30)
[2017-07-19 12:00] VITALS: BP 137/73; PULSE 69; RESP 20; TEMP 98.4; O2SAT 97
[2017-07-19] MEDS ORDERED: IOHEXOL 350 MG/ML 10 ML VIAL (for RAD DIAG) IVCONTRAST ONE (14:53)
--- NOTE | 2017-07-19 15:20 | RADRPT ---
EXAM DATE/TIME: 07/19/2017 14:48 [facility] COMPARISON: No previous studies available for comparison. INDICATIONS : Blood in stool. IV CONTRAST: 95 cc Omnipaque 350 (iohexol) IV ORAL CONTRAST: Prescribed oral contrast ingested. RADIATION DOSE: 15.61 CTDIvol (mGy) MEDICAL HISTORY : Hypertension. Cerebrovascular disease. Diverticulosis.Diabetes. Anti-coagulant therapy. SURGICAL HISTORY : Tubal ligation. ENCOUNTER: Initial ACUITY: 2 days PAIN SCALE: 0/10 LOCATION: pelvis TECHNIQUE: Volumetric scanning of the abdomen and pelvis was performed. Using automated exposure control and ad justment of the mA and/or kV according to patient size, radiation dose was kept as low as reasonably achievable to obtain optimal diagnostic quality images. DICOM format image data is available electro nically for review and comparison. FINDINGS: LOWER LUNGS: The visualized lower lungs are clear. LIVER: Homogeneous density without lesion. There is no dilation of the biliary tree. No calcified gallston es. SPLEEN: Normal size without lesion. PANCREAS: Within normal limits. KIDNEYS: Normal in size and shape. There is no mass, stone or hydronephrosis. ADRENAL GLANDS: Within normal limits. VASCULAR: There is no aortic aneurysm. BOWEL/MESENTERY: Extensive sigmoid diverticulosis. Air adjacent to the second portion of the duodenum likely duodenal diverticulum The stomach, small bowel, and colon demonstrate no acute abnormality other than some que stionable induration of the surrounding mesentery. There is no free intraperitoneal air or fluid. ABDOMINAL WALL: Within normal limits. RETROPERITONEUM: There is no lymphadenopathy. BLADDER: No wall thickening or mass. REPRODUCTIVE: Within normal limits. INGUINAL: There is no lymphadenopathy or hernia. MUSCULOSKELETAL: Within normal limits for patient age. CONCLUSION: There is extensive diverticulosis of the sigmoid colon. On a few images there some questionable indur ation of the surrounding mesentery can be a sign of diverticulitis. Even the descending colon is ques tionable fluid in the left paracolic gutter again possible evidence of diverticulitis. No significant abscess or drainable fluid collection identified. Suspected duodenal diverticulum. Jelani Rodrigues MD on July 19, 2017 at 15:15 Board Certified Radiologist. This report was verified electronically.
[2017-07-19 16:00] VITALS: BP 188/79; PULSE 82; RESP 20; TEMP 97.2; O2SAT 95
[2017-07-19] MEDS: LEVOFLOXACIN 250 MG PREMIX INJ 50 ML IV SCH (16:45)
[2017-07-19] MEDS: cloNIDine HCL 0.1 MG TAB PO PRN (17:00)
[2017-07-19] MEDS: metroNIDAZOLE 500 MG INJ 100 ML IV SCH (18:01)
[2017-07-19] MEDS: ATORVASTATIN 20 MG TAB PO SCH (19:45)
[2017-07-19] MEDS: LISINOPRIL 5 MG TAB PO SCH (19:45)
[2017-07-19 20:29] VITALS: BP 140/72; PULSE 93; RESP 12; TEMP 96.5; O2SAT 93
[2017-07-20 00:34] VITALS: BP 138/63; PULSE 85; RESP 16; TEMP 97.8; O2SAT 93
[2017-07-20] MEDS: metroNIDAZOLE 500 MG INJ 100 ML IV SCH ×3 (01:35→18:33)
[2017-07-20 08:00] VITALS: BP 158/89; PULSE 84; TEMP 96.6; O2SAT 95
[2017-07-20] MEDS: INSULIN ASPART SUPPLEMENTAL SCALE SQ SCH ×4 (08:00→20:20)
--- NOTE | 2017-07-20 08:10 | HHI.PR ---
Subjective Remarks Patient seen and examined for follow up on lower GI bleed, Patient states that with the prep she was up all night having bowel movement that were black water. Endoscopy planned for today.Patient continues to be hemodynamically stable Objective Vitals Vital Signs Date Time Temp Pulse Resp B/P (MAP) Pulse Ox O2 Delivery O2 Flow Rate FiO2 07/20/17 00:34 97.8 85 16 138/63 (88) 93 07/19/17 20:29 96.5 93 12 140/72 (94) 93 07/19/17 16:00 97.2 82 20 188/79 (115) 95 07/19/17 12:00 98.4 69 20 137/73 (94) 97 I/O 07/19/17 07/19/17 07/19/17 07/20/17 07/20/17 07/20/17 07:00 15:00 23:00 07:00 15:00 23:00 Intake Total 650 ml 150 ml Balance 650 ml 150 ml Intake Oral 650 ml IV Total 150 ml # Voids 3 3 1 1 Result Diagram: 07/19/17 0710 07/19/17 0710 Objective Remarks GENERAL: Well-developed, well-nourished, in no acute distress. alert and orientated HEENT: Head is normocephalic without any lesions or masses noted. Facial features are symmetric. Eyes: Extraocular muscles are intact. Conjunctivae were clear. NECK: Supple without any masses. Trachea midline no deviation. No JVD, CARDIAC: Regular rhythm, regular rate. S1/S2 are heard. 1/6 ejection murmur noted in the aortic region. No Gallops or rubs. LUNGS: Clear to auscultation bilaterally. No wheeze, rhonchi or rales. No use of accessory muscles on inspiration or expiration. ABDOMEN: Soft, nontender. Nondistended. Bowel sounds heard in all 4 quadrants. No organomegaly or masses. Negative rebound, negative guarding EXTREMITIES: No edema, pulses are equal bilaterally. No cyanosis or clubbing NEUROLOGY: Mood and affect appear appropriate. Cranial nerves II through XII grossly intact. Moving all extremities, speech is clear Urinary Catheter: No Vascular Central Line Catheter: No A/P Assessment and Plan Lower GI bleed Patient complicated with anticoagulation with Eliquis for atrial fibrillation and stroke Anticoagulation has been held at this time GI consultation was performed, plans for panendoscopy today CT the abdomen and pelvis has been requested by GI Hemoglobin and hematocrit have remained stable CT of the abd: Indicated extensive diverticulosis of the sigmoid colon and possible diverticulitis. Patient has been started on Levaquin and Flagyl Coagulopathy with INR 2.6, resolved Unknown etiology, patient is not on Coumadin, patient is on Eliquis Repeat PT/INR was 1.1, possible laboratory error Hypertension, hyperlipidemia, atrial fibrillation, history of stroke Patient's home medications have been resumed Blood pressure still labile Lopressor 50 mg daily Lisinopril 5 mg twice daily Clonidine as needed Will hold anticoagulation at this time due to lower GI bleed Diabetes Accu-Cheks with sliding scale insulin DVT prevention sequential compression devices Nestor Tate Jul 20, 2017 08:10
[2017-07-20] MEDS: LISINOPRIL 5 MG TAB PO SCH ×2 (08:13→20:20)
[2017-07-20] MEDS: METOPROLOL TARTRATE 50 MG TAB PO SCH (08:13)
[2017-07-20] MEDS: SODIUM CHLORIDE 0.9% FLUSH 10 ML FLUSH IV FLUSH SCH ×2 (08:15→20:09)
[2017-07-20 12:00] VITALS: BP 129/75; PULSE 67; RESP 16; TEMP 97.9; O2SAT 94
[2017-07-20 14:26] VITALS: BP 159/82; PULSE 72
[2017-07-20 14:30] VITALS: BP 158/89; PULSE 84; RESP 16; TEMP 96.6; O2SAT 95
[2017-07-20] MEDS ORDERED: POVIDONE IODINE 5% (ANTISEPSIS KIT) 4 APPLICATIONS EACH NARE PRN (15:15)
[2017-07-20] MEDS ORDERED: METOPROLOL TARTRATE 25 MG TAB PO PRN (15:15)
[2017-07-20] MEDS ORDERED: LACTATED RINGER'S 1000 ML IV PRN (15:15)
[2017-07-20] MEDS ORDERED: SODIUM CHLORID 0.9% 500 ML IV PRN (15:15)
[2017-07-20] MEDS ORDERED: CHLORHEXIDINE GLUCONATE 2 % 1 PACK (2 CLOTHS) TOPICAL PRN (15:15)
[2017-07-20] MEDS: LEVOFLOXACIN 250 MG PREMIX INJ 50 ML IV SCH (17:57)
--- NOTE | 2017-07-20 19:24 | PD.PROCEDR ---
GI Procedure PROCEDURE PERFORMED Upper endoscopy, colonoscopy with ablation of colon polyp, bleeding control of diverticulum by applying clinic INDICATION FOR PROCEDURE GI bleed PROCEDURE: The procedure, risks and benefits were discussed with Ms. Olmos and informed consent was obtained. Anesthesia sedated her with Diprivan. She was placed in the left lateral decubitus position. EGD: The Pentax videoscope was introduced through the oropharynx and advanced to the second portion of the duodenum under direct visualization. Retroflexion was performed in the stomach. Colonoscopy: The Pentax videoscope was introduced through the rectum and advanced to the cecum which was identified by the ileocecal valve and appendiceal orifice. Retroflexion was performed in the rectum. Colonic prep was fair, there was 1 small polyp in the descending colon ablated with heat, severe diverticular disease with one diverticulum actively bleeding which was clipped with 2 clips with good bleeding control ESTIMATED BLOOD LOSS: 5 cc SPECIMENS REMOVED: None COMPLICATIONS: None IMPRESSION: Upper endoscopy was normal Colonoscopy there was 1 small polyp in the descending colon ablated with heat, severe diverticular disease with one diverticulum actively bleeding which was clipped with 2 clips with good bleeding control PLAN: Supportive care Clear liquid Monitor H&H Ruiz Matos MD Jul 20, 2017 19:24
--- NOTE | 2017-07-20 19:26 | HHI.GIFU ---
Subjective Remarks Patient laying in bed, seems to be comfortable,, no major active bleeding, hemoglobin stable Objective Vitals I&O Vital Signs Date Time Temp Pulse Resp B/P (MAP) Pulse Ox O2 Delivery O2 Flow Rate FiO2 07/20/17 17:25 72 16 140/64 (89) 99 07/20/17 17:10 79 16 138/62 (87) 98 07/20/17 17:05 97.7 74 14 115/58 (77) 98 07/20/17 14:30 96.6 84 16 158/89 (112) 95 07/20/17 14:26 72 159/82 (107) 07/20/17 12:00 97.9 67 16 129/75 (93) 94 07/20/17 08:00 96.6 84 158/89 (112) 95 07/20/17 00:34 97.8 85 16 138/63 (88) 93 07/19/17 20:29 96.5 93 12 140/72 (94) 93 I/O 07/19/17 07/19/17 07/19/17 07/20/17 07/20/17 07/20/17 07:00 15:00 23:00 07:00 15:00 23:00 Intake Total 650 ml 150 ml 100 ml 500 ml Balance 650 ml 150 ml 100 ml 500 ml Intake Oral 650 ml 0 ml IV Total 150 ml 100 ml Other 500 ml # Voids 3 3 1 1 3 Physical Exam HEENT: Pupils round and reactive to light; normocephalic; atraumatic; no jaundice. Throat is clear. NECK: Neck is supple, no JVD, no lymphadenopathy. CHEST: Chest is clear to auscultation and percussion. CARDIAC: Regular rate and rhythm with no murmur gallop or rubs. ABDOMEN: Soft, nondistended, nontender; no hepatosplenomegaly; bowel sounds are present in all four quadrants. EXTREMITIES: No clubbing, cyanosis, or edema. SKIN: Normal; no rash; no jaundice. 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 Assessment and Plan Plan 07/19/2007 Patient is a 81-year-old lady with a bright red blood per rectum and dark clots mild anemia seems to be doing okay and stable today, upper endoscopy and colonoscopy was performed IMPRESSION: Upper endoscopy was normal Colonoscopy there was 1 small polyp in the descending colon ablated with heat, severe diverticular disease with one diverticulum actively bleeding which was clipped with 2 clips with good bleeding control PLAN: Supportive care Clear liquid Monitor H&H Ruiz Matos MD Jul 20, 2017 19:26
[2017-07-20 20:00] VITALS: BP 143/68; PULSE 71; RESP 20; TEMP 96; O2SAT 96
[2017-07-20] MEDS: ATORVASTATIN 20 MG TAB PO SCH (20:09)
--- NOTE | 2017-07-20 22:51 | EKG ---
Date Performed: 07/20/2017 Time Performed: 08:20:59 PTAGE: 81 years EKG: Sinus rhythm MARKED LEFT AXIS DEVIATION NONSPECIFIC ST & T-WAVE ABNORMALITY ABNORMAL ECG PREVIOUS TRACING : 12/05/2015 17.41 DOCTOR: Christy Fink Interpretating Date/Time 07/20/2017 22:47:33
[2017-07-21] VITALS: BP 186/72; PULSE 79; RESP 18; TEMP 97; O2SAT 95
[2017-07-21] MEDS: metroNIDAZOLE 500 MG INJ 100 ML IV SCH ×2 (02:24→09:08)
[2017-07-21 08:00] VITALS: BP 157/97; PULSE 85; RESP 14; TEMP 98.2; O2SAT 92
[2017-07-21] MEDS: INSULIN ASPART SUPPLEMENTAL SCALE SQ SCH ×2 (08:00→11:56)
[2017-07-21] MEDS: METOPROLOL TARTRATE 50 MG TAB PO SCH (09:08)
[2017-07-21] MEDS: SODIUM CHLORIDE 0.9% FLUSH 10 ML FLUSH IV FLUSH SCH (09:08)
[2017-07-21] MEDS: LISINOPRIL 5 MG TAB PO SCH (09:08)
--- NOTE | 2017-07-21 10:39 | HHI.PR ---
Subjective Remarks Follow up lower GI bleed. Patient seen and examined. Lying in bed comfortably. Denies any new acute complaints. Tolerating PO intake. Afebrile. VSS. Objective Vitals Vital Signs Date Time Temp Pulse Resp B/P (MAP) Pulse Ox O2 Delivery O2 Flow Rate FiO2 07/21/17 08:00 98.2 85 14 157/97 (117) 92 07/21/17 00:00 97.0 79 18 186/72 (110) 95 07/20/17 20:00 96.0 71 20 143/68 (93) 96 07/20/17 17:25 72 16 140/64 (89) 99 07/20/17 17:10 79 16 138/62 (87) 98 07/20/17 17:05 97.7 74 14 115/58 (77) 98 07/20/17 14:30 96.6 84 16 158/89 (112) 95 07/20/17 14:26 72 159/82 (107) 07/20/17 12:00 97.9 67 16 129/75 (93) 94 I/O 07/20/17 07/20/17 07/20/17 07/21/17 07/21/17 07/21/17 07:00 15:00 23:00 07:00 15:00 23:00 Intake Total 100 ml 500 ml 480 ml Balance 100 ml 500 ml 480 ml Intake Oral 0 ml 480 ml IV Total 100 ml Other 500 ml # Voids 1 3 3 # Bowel Movements 0 Result Diagram: 07/19/17 0710 07/19/17 0710 Imaging Last Impressions Abdomen/Pelvis CT 07/19/17 0000 Signed Impressions: Service Date/Time: Wednesday, July 19, 2017 14:48 - CONCLUSION: There is extensive diverticulosis of the sigmoid colon. On a few images there some questionable induration of the surrounding mesentery can be a sign of diverticulitis. Even the descending colon is questionable fluid in the left paracolic gutter again possible evidence of diverticulitis. No significant abscess or drainable fluid collection identified. Suspected duodenal diverticulum. Jelani Rodrigues MD Objective Remarks GENERAL: Well-nourished, well-developed patient in NAD. SKIN: Warm and dry. No rash. HEAD: Normocephalic. Atraumatic. EYES: Pupils equal and round. No scleral icterus. No injection or drainage. ENT: No nasal bleeding or discharge. Mucous membranes pink and moist. NECK: Supple. Trachea midline. CARDIOVASCULAR: Regular rate and rhythm. S1, S2 noted. No murmur appreciated. RESPIRATORY: No accessory muscle use. Clear to auscultation. Breath sounds equal bilaterally. GASTROINTESTINAL: Abdomen soft, non-tender, nondistended. Normoactive bowel sounds x4. MUSCULOSKELETAL: No obvious deformities. Extremities without clubbing, cyanosis , or edema. NEUROLOGICAL: Awake and alert. No obvious cranial nerve deficits. Motor grossly within normal limits. 5/5 muscle strength in bilateral upper and lower extremities. Normal speech. PSYCHIATRIC: Appropriate mood and affect; insight and judgment normal. A/P Assessment and Plan Lower GI bleed Patient complicated with anticoagulation with Eliquis for atrial fibrillation and stroke. GI consultation was performed, EGD negative. Colonoscopy showing 1 small polyp in the descending colon ablated with heat, severe diverticular disease with one diverticulum actively bleeding which was clipped with 2 clips with good bleeding control. Hemoglobin and hematocrit have remained stable. CBC reviewed today. CT of the abd: Indicated extensive diverticulosis of the sigmoid colon and possible diverticulitis. Patient has been started on Levaquin and Flagyl, will continue PO upon discharge. Spoke with GI who is OK with DC. Follow up in office. OK to restart Eliquis in 3 days. Monitor for any rectal bleeding. Coagulopathy with INR 2.6, resolved Unknown etiology, patient is not on Coumadin, patient is on Eliquis Repeat PT/INR was 1.1, possible laboratory error. Hypertension, hyperlipidemia, atrial fibrillation, history of stroke Patient's home medications have been resumed Lopressor 50 mg daily Lisinopril 5 mg twice daily Clonidine as needed. Blood pressure had been labile. Systolic 150's on day of discharge. Resumed home medications, encouraged to follow up with PCP for tighter control of BP. Diabetes Accu-Cheks with sliding scale insulin. Restart home diabetic medications on dc. DVT prevention sequential compression devices Dominique Kenney Jul 21, 2017 10:39
[2017-07-21 12:00] VITALS: BP 155/65; PULSE 83; RESP 14; TEMP 99.4; O2SAT 92
[2017-07-21] MEDS ORDERED: LIDOCAINE HCL 1% PF 5 ML SYRINGE OTHER ONE (12:00)
[2017-07-21] MEDS ORDERED: PROPOFOL 200 MG/20 ML AMP IV ONE (12:00)
[2017-07-21] MEDS ORDERED: PHENYLEPH/NS 1000 MCG/10 ML SYR IV ONE (12:00)
[2017-07-21] MEDS ORDERED: ePHEDrine/NS 25 MG/5 ML SYRINGE IV ONE (12:00)
[2017-07-21 12:47] LABS: AUTOMATED NEUTROPHIL # 9.1 TH/MM3 (1.8-7.7); BASOPHIL % 0.4 % (0.0-2.0); EOSINOPHIL # 0.2 TH/MM3 (0-0.4); EOSINOPHIL % 1.7 % (0.0-4.0); HEMATOCRIT 33.5 % (35.0-46.0); HEMOGLOBIN 10.5 GM/DL (11.6-15.3); LYMPH % 13.5 % (9.0-44.0); LYMPHOCYTE # 1.6 TH/MM3 (1.0-4.8); MEAN CORPUSCULAR HEMOGLOBIN 25.4 PG (27.0-34.0); MEAN CORPUSCULAR HGB CONC 31.4 % (32.0-36.0); MEAN PLATELET VOLUME 7.1 FL (7.0-11.0); MONO % 6.3 % (0.0-8.0); MONOCYTE # 0.7 TH/MM3 (0-0.9); NEUT % 78.1 % (16.0-70.0); PLATELET COUNT 493 TH/MM3 (150-450); RED BLOOD COUNT 4.14 MIL/MM3 (4.00-5.30); WHITE BLOOD COUNT 11.6 TH/MM3 (4.0-11.0)
[2017-07-21 13:04] LABS: CREATININE 0.7 MG/DL (0.50-1.00)
--- NOTE | 2017-07-21 13:04 | HHI.DCPOC ---
Discharge Care Plan Diagnosis: (1) Atrial fibrillation (2) Encounter for diabetes type 2 eye exam (3) Rectal bleeding (4) Hypertension (5) Type 2 diabetes mellitus Goals to Promote Your Health * To prevent worsening of your condition and complications * To maintain your health at the optimal level Directions to Meet Your Goals Take your medications as prescribed Follow your dietary instruction Follow activity as directed Keep your appointments as scheduled Take your immunizations and boosters as scheduled If your symptoms worsen call your PCP, if no PCP go to Urgent Care Center or Emergency Room Smoking is Dangerous to Your Health. Avoid second hand smoke Call the 24-hour hour crisis hotline for domestic abuse at Dominique Kenney Jul 21, 2017 13:04
--- NOTE | 2017-07-21 13:05 | HHI.DS ---
Discharge Summary Admission Date Jul 18, 2017 at 15:00 Discharge Date: Jul 21, 2017 Admitting Diagnosis Rectal bleeding, anticoagulated (1) Rectal bleeding ICD Code: K62.5 - Hemorrhage of anus and rectum Diagnosis: Principal Status: Acute Procedures . Brief History - From Admission 81-year-old female with known history of hypertension, diabetes, history TIA, atrial fibrillation, anticoagulated on Eliquis who presented to the emergency department because of bright red blood in the toilet. Patient states that it started last night when she went to the bathroom and noticed a couple spots of bright red blood on the toilet paper. However this morning when she had a bowel movement she noticed that there was red blood mixed with her stool and also in the toilet. Because of that reason she came to emergency department for evaluation. Patient denies any actual pain, no lightheadedness, dizziness, shortness of breath, dyspnea. Hemoglobin was 11.2. Patient is anticoagulated on Eliquis secondary to atrial fibrillation and previous stroke. Because of that reason is recommended that the patient be admitted the hospital for further evaluation and management. She indicates that she had colonoscopy done approximately 8 years ago and at that time she was told that she had diverticulosis. She has not had any follow-up endoscopy since then. CBC/BMP: 07/21/17 1240 07/19/17 0710 Significant Findings Laboratory Tests Test 07/18/17 13:59 07/18/17 22:15 07/19/17 07:10 07/19/17 09:50 Hemoglobin 11.2 GM/DL (11.6-15.3) 10.3 GM/DL (11.6-15.3) 10.4 GM/DL (11.6-15.3) Hematocrit 34.4 % (35.0-46.0) 33.0 % (35.0-46.0) 33.0 % (35.0-46.0) Mean Corpuscular Hemoglobin 26.2 PG (27.0-34.0) 25.9 PG (27.0-34.0) Neutrophils (%) (Auto) 74.5 % (16.0-70.0) 73.1 % (16.0-70.0) Chloride Level 109 MEQ/L (98-107) 108 MEQ/L (98-107) Estimat Glomerular Filtration Rate 79 ML/MIN (>89) Prothrombin Time 25.8 SEC (9.8-11.6) Mean Corpuscular Hemoglobin Concent 31.6 % (32.0-36.0) Random Glucose 131 MG/DL (74-106) Test 07/21/17 12:40 White Blood Count 11.6 TH/MM3 (4.0-11.0) Hemoglobin 10.5 GM/DL (11.6-15.3) Hematocrit 33.5 % (35.0-46.0) Mean Corpuscular Hemoglobin 25.4 PG (27.0-34.0) Mean Corpuscular Hemoglobin Concent 31.4 % (32.0-36.0) Platelet Count 493 TH/MM3 (150-450) Neutrophils (%) (Auto) 78.1 % (16.0-70.0) Neutrophils # (Auto) 9.1 TH/MM3 (1.8-7.7) Imaging Last Impressions Abdomen/Pelvis CT 07/19/17 0000 Signed Impressions: Service Date/Time: Wednesday, July 19, 2017 14:48 - CONCLUSION: There is extensive diverticulosis of the sigmoid colon. On a few images there some questionable induration of the surrounding mesentery can be a sign of diverticulitis. Even the descending colon is questionable fluid in the left paracolic gutter again possible evidence of diverticulitis. No significant abscess or drainable fluid collection identified. Suspected duodenal diverticulum. Jelani Rodrigues MD PE at Discharge GENERAL: Well-developed, well-nourished, in no acute distress. alert and orientated HEENT: Head is normocephalic without any lesions or masses noted. Facial features are symmetric. Eyes: Extraocular muscles are intact. Conjunctivae were clear. NECK: Supple without any masses. Trachea midline no deviation. No JVD, CARDIAC: Regular rhythm, regular rate. S1/S2 are heard. 1/6 ejection murmur noted in the aortic region. No Gallops or rubs. LUNGS: Clear to auscultation bilaterally. No wheeze, rhonchi or rales. No use of accessory muscles on inspiration or expiration. ABDOMEN: Soft, nontender. Nondistended. Bowel sounds heard in all 4 quadrants. No organomegaly or masses. Negative rebound, negative guarding EXTREMITIES: No edema, pulses are equal bilaterally. No cyanosis or clubbing NEUROLOGY: Mood and affect appear appropriate. Cranial nerves II through XII grossly intact. Moving all extremities, speech is clear Pt update on day of discharge Follow up lower GI bleed. Patient seen and examined. Lying in bed comfortably. Denies any new acute complaints. Tolerating PO intake. Afebrile. VSS. Hospital Course Patient presented with lower GI bleed, complicated with anticoagulation with Eliquis for atrial fibrillation and stroke. During hospitalization into crash was held. Patient was seen by GI and underwent EGD and colonoscopy, EGD was unremarkable. Colonoscopy showing one small polyp in the descending colon ablated with heat, severe diverticulum disease with one diverticulum actively bleeding which was clipped with two clips and good bleeding control. Hemoglobin stable.CT of the abd: Indicated extensive diverticulosis of the sigmoid colon and possible diverticulitis. Patient was started on Levaquin and Flagyl. Upon presentation patient had INR of 2.6, was resolved, possible laboratory error. Patient is not on medicine but on Eliquis. Repeat PT/INR was 1.1, possible laboratory error. Patient's blood pressure was labile during hospitalization, was restarted on home medications including Lopressor and lisinopril. Patient was given clonidine as needed. Upon discharge patient's blood pressure was in the 150s. Encouraged follow-up with PCP for tighter blood pressure control. Diabetes stable, restart home medications upon discharge. Patient's pain is resolved. Denies any further rectal bleeding. Tolerating by mouth intake well. Vital signs are stable. Labs reviewed and stable. follow-up with PCP. Stable for discharge today. Pt Condition on Discharge: Stable Discharge Disposition: Discharge Home Discharge Time: <= 30 minutes Discharge Instructions DIET: Follow Instructions for: As Tolerated, No Restrictions, Heart Healthy Diet Speech Therapy-Diet Recommends: Regular Activities you can perform: Regular-No Restrictions Follow up Referrals: Gastroenterology - 1 Week PCP Follow-up - 1 Week New Medications: Levofloxacin (Levaquin) 250 Mg Tablet 250 MG PO DAILY for Infection for 4 Days, #4 TAB 0 Refills Metronidazole (Flagyl) 500 Mg Tab 500 MG PO TID for Infection for 4 Days, #12 TAB 0 Refills Continued Medications: Alendronate (Fosamax) 70 Mg Tab 70 MG PO Q7D for Osteoporosis Treatment, #4 TAB 0 Refills Apixaban (Eliquis) 5 Mg Tab 5 MG PO DAILY for Blood Clot Prevention, #60 TAB 0 Refills Atorvastatin (Atorvastatin) 20 Mg Tab 20 MG PO HS for Cholesterol Management, #30 TAB 0 Refills Canagliflozin-Metformin (Invokamet) 150-1,000 Mg Tab 1 TAB PO DAILY for Blood Sugar Management, #60 TAB 0 Refills Take with meals. Avoid ethanol. Glipizide (Glipizide) 10 Mg Tab 10 MG PO BIDAC for Blood Sugar Management, #60 TAB 0 Refills Take 30 minutes before a meal Lisinopril (Lisinopril) 5 Mg Tab 5 MG PO DAILY for Blood Pressure Management, #30 TAB 0 Refills Metoprolol Tartrate (Metoprolol Tartrate) 50 Mg Tab 50 MG PO DAILY, #30 TAB 0 Refills Dominique Kenney Jul 21, 2017 13:05
[2017-07-21] MEDS ORDERED: LEVA250T14 PO (13:10)
[2017-07-21] MEDS ORDERED: METR-1 PO (13:10)
== END 2017-07-21 14:50 | disposition home or self-care (01) | DRG 379 ==
LOC: PHED 11:09 → PHEDA 15:00 → PH3A 16:01
PROVIDERS: ADMIT Hospitalist; ATTEND Hospitalist
PROC: 0DJ08ZZ Inspection of Upper Intestinal Tract, Via Natural or Artificial Opening Endoscopic (ICD-10-PCS; 2017-07-20)
PROC: 0W3P8ZZ Control Bleeding in Gastrointestinal Tract, Via Natural or Artificial Opening Endoscopic (ICD-10-PCS; principal; 2017-07-20 16:10)
PROC: 0D5M8ZZ Destruction of Descending Colon, Via Natural or Artificial Opening Endoscopic (ICD-10-PCS; 2017-07-20 16:10)
DX: K57.31 Diverticulosis of large intestine without perforation or abscess with bleeding (principal); I48.91 Unspecified atrial fibrillation; E11.9 Type 2 diabetes mellitus without complications; I10 Essential (primary) hypertension; D12.4 Benign neoplasm of descending colon; D64.9 Anemia, unspecified; E78.5 Hyperlipidemia, unspecified; E66.9 Obesity, unspecified; R21 Rash and other nonspecific skin eruption; Z68.30 Body mass index [BMI] 30.0-30.9, adult; Z79.01 Long term (current) use of anticoagulants; Z79.84 Long term (current) use of oral hypoglycemic drugs; Z86.73 Personal history of transient ischemic attack (TIA), and cerebral infarction without residual deficits
CPT/HCPCS: 74177; 80048; 82565; 82948; 85014; 85018; 85025; 85610; 85730; 93005; 99285; J1815; J1956; J2370; Q9963; Q9967

== ENCOUNTER 2017-09-29 19:39 | Observation (INO) | payer MEDICARE ==
[~2017-09-29] VITALS: Ht 157.5 cm; Wt 80.0 kg
[~2017-09-29 19:39] MED LIST changes: +APIX5TAB PO; -ARTIDRO EACH EYE; +ATOR20TA15 PO; +GLIP10TA6 PO; -GLIP5 PO; -JANT5TAB2 PO; +LEVA250T14 PO; -LISI-357 PO; +LISI-519 PO; +METR-1 PO; -ROSU10 PO
[2017-09-29 19:45] VITALS: BP 217/95; PULSE 87; RESP 16; TEMP 98; O2SAT 98
--- NOTE | 2017-09-29 20:09 | PD ---
HPI Chief Complaint: Altered Mental Status Time Seen by Provider: 19:50 Travel History International Travel<30 days: No Contact w/Intl Traveler<30days: No Traveled to known affect area: No History of Present Illness HPI The patient is an 81 year old female who presents to the [facility] emergency department with a history of altered mental status that began 2 days ago according to ambulance services the patient lives with her family. They report that over the last 2 days she has been more forgetful than usual. She has not had any focal weakness, however she has been unsteady on her feet and fallen twice. The patient has some bruising noted of her right foot. The patient reports having some right foot pain. Otherwise, the patient denies having any other discomfort. She reports that she has been eating and drinking well. She denies having any chest pain, chest pressure, or shortness of breath. She denies having any abdominal pain, nausea, vomiting, or diarrhea. The patient is pleasant and alert on examination. The patient is oriented to person, place, time, and situation. She reports that she is 81 years old and her birthday is in this month on the . On review of systems otherwise, the patient denies having any known recent fevers. She reports having a chronic cough that is no worse than usual. She denies having any neck pain, urinary symptoms, one-sided weakness, slurred speech, facial droop, or changes in her vision. There is a reported history that the patient has had a stroke in the past. The patient denies having any residual weakness related to a prior stroke. COUNT INCLUDES THE [facility] Past Medical History Narrative Medical The patient's past medical history is significant for hypertension, hyperlipidemia, diabetes mellitus, atrial fibrillation, prior history of stroke. According to the record the patient is chronically anticoagulated on Eliquis. According to the record the patient was last admitted to this facility in July 2017 related to rectal bleeding. Medical History: Unable to Obtain Hx Anticoagulant Therapy: Yes Heart Rhythm Problems: Yes Cancer: No Cardiovascular Problems: Yes (htn on meds) High Cholesterol: Yes Cerebrovascular Accident: Yes (cva, tia's) Diabetes: Yes (type 2) Patient Takes Glucophage: No (UNKNOWN) Diminished Hearing: No Endocrine: Yes Glaucoma: No Genitourinary: Yes Hepatitis: No Hiatal Hernia: No Hypertension: Yes Immune Disorder: No Kidney Stones: Yes Musculoskeletal: No Neurologic: Yes Psychiatric: No Reproductive: No Respiratory: No Thyroid Disease: No Tetanus Vaccination: Unknown Influenza Vaccination: Yes Tubal Ligation: Yes Past Surgical History Narrative Surgical The patient's past surgical history is significant for bilateral tubal ligation , cataract surgery, prior colonoscopy. Surgical History: Unable to Obtain Eye Surgery: Yes (BILATERAL UPPER BLEPH) Gynecologic Surgery: Yes (TUBAL LIGATION) Pacemaker: No Other Surgery: Yes Social History Alcohol Use: No Tobacco Use: No Substance Use: No Allergies-Medications (Allergen,Severity, Reaction): Coded Allergies: No Known Allergies (Verified Allergy, Unknown, 09/29/17) Reported Meds & Prescriptions Reported Meds & Active Scripts Active Flagyl (Metronidazole) 500 Mg Tab 500 Mg PO TID 4 Days Levaquin (Levofloxacin) 250 Mg Tablet 250 Mg PO DAILY 4 Days Reported Metoprolol Tartrate 50 Mg Tab 50 Mg PO DAILY Invokamet (Canagliflozin-Metformin) 150-1,000 Mg Tab 1 Tab PO DAILY Take with meals. Avoid ethanol. Lisinopril 5 Mg Tab 5 Mg PO DAILY Glipizide 10 Mg Tab 10 Mg PO BIDAC Take 30 minutes before a meal Eliquis (Apixaban) 5 Mg Tab 5 Mg PO DAILY Fosamax (Alendronate Sodium) 70 Mg Tab 70 Mg PO Q7D Atorvastatin (Atorvastatin Calcium) 20 Mg Tab 20 Mg PO HS Review of Systems Except as stated in HPI: all other systems reviewed are Neg General / Constitutional: No: Fever Eyes: No: Visual changes HENT: No: Headaches Cardiovascular: No: Chest Pain or Discomfort Respiratory: No: Shortness of Breath Gastrointestinal: No: Nausea, Vomiting, Diarrhea, Abdominal Pain Genitourinary: No: Dysuria Musculoskeletal: Positive: Arthralgias, Pain, No: Myalgias Skin: No Rash Neurologic: Positive: Change in Mentation, No: Weakness, Focal Abnormalities, Slurred Speech, Sensory Disturbance Psychiatric: No: Depression Endocrine: No: Polydipsia Hematologic/Lymphatic: No: Easy Bruising Physical Exam Narrative General: The patient is a well-developed well-nourished female in no acute distress. Head and Neck exam: Head is normocephalic atraumatic. Eyes: EOMI, pupils are equal round and reactive to light. Nose: Midline septum with pink mucous membranes Mouth: Dentition unremarkable. Moist mucus membranes. Posterior oropharynx is not erythematous. No tonsillar hypertrophy. Uvula midline. Airway patent. Neck: No palpable lymphadenopathy. No nuchal rigidity. No thyromegaly. Cardiovascular: Regular rate and rhythm without murmurs, gallops, or rubs. No pulse deficit to the extremities on simultaneous auscultation and palpation of her radial artery. Lungs: Clear to auscultation bilaterally. No wheezes, rhonchi, or rales. Abdomen: Soft, without tenderness to palpation in all 4 quadrants of the abdomen. No guarding, rebound, or rigidity. Normal bowel sounds are audible. No tenderness on palpation of McBurney's point. Negative Lorenzana sign. Extremities: No clubbing or cyanosis. The patient has trace to 1+ edema bilateral lower extremity. 2+ pulses in all 4 extremities. The patient is noted on examination to have ecchymosis involving the dorsum of the distal aspect of the foot and second, third, fourth digit. The patient reports tenderness on palpation to the distal foot and the second, third, and fourth digit. She has full range of motion. She has intact sensation over all digits. She has less than 3 second capillary refill. Back: No spinous process tenderness to palpation. No costovertebral angle tenderness to palpation. Neurologic Exam: Cranial nerves 2-12 were intact on exam. Strength is 5/5 in all 4 extremities. No sensory deficits noted. Skin Exam: No rash noted. Intact skin that is warm and dry. Data Data Last Documented VS Vital Signs Date Time Temp Pulse Resp B/P (MAP) Pulse Ox O2 Delivery O2 Flow Rate FiO2 09/29/17 19:56 Room Air 09/29/17 19:45 98.0 87 16 217/95 (135) 98 Orders Orders Electrocardiogram (09/29/17 19:58) Complete Blood Count With Diff (09/29/17 19:58) Comprehensive Metabolic Panel (09/29/17 19:58) Creatine Kinase (Cpk) (09/29/17 19:58) Ckmb (Isoenzyme) Profile (09/29/17 19:58) Troponin I (09/29/17 19:58) B-Type Natriuretic Peptide (09/29/17 19:58) Prothrombin Time / Inr (Pt) (09/29/17 19:58) Act Partial Throm Time (Ptt) (09/29/17 19:58) Lipase (09/29/17 19:58) Urinalysis - C+S If Indicated (09/29/17 19:58) Magnesium (Mg) (09/29/17 19:58) Ammonia (09/29/17 19:58) Chest, Single Ap (09/29/17 19:58) Ct Brain W/O Iv Contrast(Rout) (09/29/17 19:58) Iv Access Insert/Monitor (09/29/17 19:58) Ecg Monitoring (09/29/17 19:58) Oximetry (09/29/17 19:58) Foot, Complete ([id number]) (09/29/17 ) Ct Cerv Spine W/O Contrast (09/29/17 ) Sodium Chlor 0.9% 1000 Ml Inj (Ns 1000 M (09/29/17 20:00) Labetalol Inj (Trandate Inj) (09/29/17 21:45) Aspirin (Aspirin) (09/29/17 21:45) Admit Order (Ed Use Only) (09/29/17 21:54) Labs Laboratory Tests Test 09/29/17 20:04 White Blood Count 9.6 TH/MM3 Red Blood Count 4.35 MIL/MM3 Hemoglobin 10.1 GM/DL Hematocrit 31.9 % Mean Corpuscular Volume 73.4 FL Mean Corpuscular Hemoglobin 23.1 PG Mean Corpuscular Hemoglobin Concent 31.5 % Red Cell Distribution Width 15.5 % Platelet Count 379 TH/MM3 Mean Platelet Volume 7.6 FL Neutrophils (%) (Auto) 67.9 % Lymphocytes (%) (Auto) 19.6 % Monocytes (%) (Auto) 11.0 % Eosinophils (%) (Auto) 1.0 % Basophils (%) (Auto) 0.5 % Neutrophils # (Auto) 6.5 TH/MM3 Lymphocytes # (Auto) 1.9 TH/MM3 Monocytes # (Auto) 1.1 TH/MM3 Eosinophils # (Auto) 0.1 TH/MM3 Basophils # (Auto) 0.1 TH/MM3 CBC Comment DIFF FINAL Differential Comment Prothrombin Time 10.9 SEC Prothromb Time International Ratio 1.1 RATIO Activated Partial Thromboplast Time 23.4 SEC Urine Color LIGHT-YELLOW Urine Turbidity CLEAR Urine pH 5.0 Urine Specific [place] 1.012 Urine Protein NEG mg/dL Urine Glucose (UA) TRACE mg/dL Urine Ketones 10 mg/dL Urine Occult Blood NEG Urine Nitrite NEG Urine Bilirubin NEG Urine Urobilinogen LESS THAN 2.0 MG/DL Urine Leukocyte Esterase NEG Urine Amorphous Sediment RARE Urine Mucus FEW /lpf Microscopic Urinalysis Comment CULT NOT INDICATED Blood Urea Nitrogen 12 MG/DL Creatinine 0.60 MG/DL Random Glucose 100 MG/DL Total Protein 7.4 GM/DL Albumin 3.2 GM/DL Calcium Level 9.6 MG/DL Magnesium Level 1.8 MG/DL Alkaline Phosphatase 74 U/L Aspartate Amino Transf (AST/SGOT) 16 U/L Alanine Aminotransferase (ALT/SGPT) 19 U/L Total Bilirubin 0.6 MG/DL Sodium Level 139 MEQ/L Potassium Level 3.6 MEQ/L Chloride Level 106 MEQ/L Carbon Dioxide Level 24.2 MEQ/L Anion Gap 9 MEQ/L Estimat Glomerular Filtration Rate 96 ML/MIN Ammonia 14 MCMOL/L Total Creatine Kinase 35 U/L Troponin I LESS THAN 0.02 NG/ML B-Type Natriuretic Peptide 80 PG/ML Lipase 104 U/L MDM Medical Decision Making Medical Screen Exam Complete: Yes Emergency Medical Condition: Yes Medical Record Reviewed: Yes Differential Diagnosis Altered mental status differential includes infectious process such as UTI, versus pneumonia, versus encephalopathy such as hepatic encephalopathy, versus hypoglycemia, versus hyponatremia, versus other electrolyte derangement, versus intracranial abnormality Narrative Course During the course of the patient's emergency department visit, the patient's history, examination, and differential diagnosis were reviewed with the patient. The patient was placed on a machine room engineer with oximetry and frequent blood pressure monitoring. The patient had IV access obtained and blood work sent for analysis. The patient had an EKG done on arrival that shows a sinus rhythm heart rate of 85, QRS duration is 73 ms, QTC 388 ms. Left axis deviation is noted. No ST segment elevation noted. T waves are inverted in V1. The patient was initially provided normal saline IV fluids at 70 mL/h. The patient's laboratory studies were reviewed and remarkable for CBC & BMP Diagram 09/29/17 20:04 Total Protein 7.4, Albumin 3.2 L, Calcium Level 9.6, Magnesium Level 1.8, Alkaline Phosphatase 74, Aspartate Amino Transf (AST/SGOT) 16, Alanine Aminotransferase (ALT/SGPT) 19, Total Bilirubin 0.6, cardiac enzymes within normal limits, BNP is 80, ammonia level is 14 ruling out hepatic encephalopathy , lipase 104, PT 10.9, PTT 23.4. Urinalysis shows 10 ketones otherwise unremarkable. Radiology studies were reviewed and remarkable for a chest x-ray shows minimal basilar atelectasis or scarring, no effusion. Foot x-ray shows no acute bony abnormality. CT scan of the brain shows a remote small left occipital lobe infarct. No acute findings, chronic white matter ischemic changes. CT scan of the C-spine shows no acute abnormality, moderate degenerative disc disease and facet arthropathy.. The patient has been hypertensive during the patient's emergency department visit. The patient was given labetalol 10 mg IV. As the patient has been newly unsteady on her feet and confused with a history of prior stroke involving the occipital lobe in 2016, concern for a TIA is present. The patient CT scan showed no acute abnormality currently. The patient was given aspirin 325 mg p.o. The patient will be placed with the head of the bed flat. The patient will be admitted for further evaluation and treatment of possible TIA versus occipital stroke. The patient's results were discussed with the patient, including the plan of care. I explained that further testing and/ or monitoring is indicated based on the patient's history, examination, and/ or laboratory findings. Therefore, I recommended admission for additional evaluation. The patient expressed understanding and was agreeable with this plan. The patient was admitted to the hospital in stable condition and sent to a bed under the care of the [facility] service. Physician Communication Physician Communication The patient's case including history, pertinent physical examination findings, and laboratory studies were discussed with Dr. Neri. It was agreed that the patient would be admitted to the [facility] service. 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
[2017-09-29 20:25] LABS: AUTOMATED NEUTROPHIL # 6.5 TH/MM3 (1.8-7.7); BASOPHIL # 0.1 TH/MM3 (0-0.2); BASOPHIL % 0.5 % (0.0-2.0); EOSINOPHIL # 0.1 TH/MM3 (0-0.4); HEMATOCRIT 31.9 % (35.0-46.0); HEMOGLOBIN 10.1 GM/DL (11.6-15.3); LYMPH % 19.6 % (9.0-44.0); LYMPHOCYTE # 1.9 TH/MM3 (1.0-4.8); MEAN CELL VOLUME 73.4 FL (80.0-100.0); MEAN CORPUSCULAR HEMOGLOBIN 23.1 PG (27.0-34.0); MEAN CORPUSCULAR HGB CONC 31.5 % (32.0-36.0); MEAN PLATELET VOLUME 7.6 FL (7.0-11.0); MONOCYTE # 1.1 TH/MM3 (0-0.9); NEUT % 67.9 % (16.0-70.0); PLATELET COUNT 379 TH/MM3 (150-450); RED BLOOD COUNT 4.35 MIL/MM3 (4.00-5.30); RED CELL DISTRIBUTION WIDTH 15.5 % (11.6-17.2); WHITE BLOOD COUNT 9.6 TH/MM3 (4.0-11.0)
--- NOTE | 2017-09-29 20:29 | RADRPT ---
EXAM DATE/TIME: 09/29/2017 20:14 [facility] COMPARISON: No previous studies available for comparison. INDICATIONS : Trauma, fall two days ago. Patient altered. RADIATION DOSE: 56.35 CTDIvol (mGy) MEDICAL HISTORY : Hypertension. Stroke SURGICAL HISTORY : None. ENCOUNTER: Initial ACUITY: 2 days PAIN SCALE: 0/10 LOCATION: cranial TECHNIQUE: Multiple contiguous axial images were obtained of the head. Using automated exposure control and adj ustment of the mA and/or kV according to patient size, radiation dose was kept as low as reasonably a chievable to obtain optimal diagnostic quality images. DICOM format image data is available electro nically for review and comparison. FINDINGS: Remote infarct left occipital lobe. Chronic white matter ischemic changes. No acute infarct, mass, he morrhage identified. No acute bony abnormalities. CONCLUSION: 1. Remote small left occipital lobe infarct. No acute findings. Chronic white matter ischemic changes . Bernard Sigala MD on September 29, 2017 at 20:26 Board Certified Radiologist. This report was verified electronically.
[2017-09-29 20:37] LABS: AMORPHOUS SEDIMENT, URINE RARE; BILIRUBIN, URINE NEG (NEG); BLOOD, URINE NEG (NEG); GLUCOSE,URINE TRACE mg/dL (NEG); INTERNATIONAL NORMALIZED RATIO 1.1 RATIO; KETONE, URINE 10 mg/dL (NEG); MUCUS URINE FEW /lpf (OCC); NITRITE,URINE NEG (NEG); PROTHROMBIN TIME - PATIENT 10.9 SEC (9.8-11.6); URINE COLOR LIGHT-YELLOW (YELLW/STRAW); URINE LEUKOCYTE ESTERASE NEG (NEG)
[2017-09-29] MEDS: SODIUM CHLOR 0.9% 1000 ML INJ 1,000 ML IV SCH (20:42)
--- NOTE | 2017-09-29 20:44 | RADRPT ---
EXAM DATE/TIME: 09/29/2017 20:14 [facility] COMPARISON: No previous studies available for comparison. INDICATIONS : Trauma, fall. RADIATION DOSE: 20.57 CTDIvol (mGy) MEDICAL HISTORY : Hypertension. Stroke SURGICAL HISTORY : None. ENCOUNTER: Initial ACUITY: 2 days PAIN SCALE: 0/10 LOCATION: neck TECHNIQUE: Volumetric scanning of the cervical spine was performed. Multiplanar reconstructions in the sagittal, coronal and oblique axial planes were performed. Using automated exposure control and adjustment o f the mA and/or kV according to patient size, radiation dose was kept as low as reasonably achievable to obtain optimal diagnostic quality images. DICOM format image data is available electronically f or review and comparison. FINDINGS: No acute fracture or spondylolisthesis. No prevertebral soft tissue swelling. Moderate degenerative d isc disease throughout without significant bony canal stenosis. Left-sided foraminal stenosis at C4-5 . CONCLUSION: 1. No acute findings. Moderate degenerative disc disease and facet arthropathy. Bernard Sigala MD on September 29, 2017 at 20:40 Board Certified Radiologist. This report was verified electronically.
--- NOTE | 2017-09-29 20:46 | RADRPT ---
EXAM DATE/TIME: 09/29/2017 20:23 [facility] COMPARISON: No previous studies available for comparison. INDICATIONS : Altered mental status. MEDICAL HISTORY : Hypertension. Diabetes mellitus type 2. SURGICAL HISTORY : Tubal ligation. ENCOUNTER: Initial ACUITY: 1 day PAIN SCORE: 0/10 LOCATION: Bilateral chest FINDINGS: There is minimal basal atelectasis. No focal consolidation. No effusion. Heart size normal. Mildly to rtuous aorta. No pneumothorax. CONCLUSION: 1. Minimal basilar atelectasis or scarring. No effusion. Bernard Sigala MD on September 29, 2017 at 20:43 Board Certified Radiologist. This report was verified electronically.
--- NOTE | 2017-09-29 20:48 | RADRPT ---
EXAM DATE/TIME: 09/29/2017 20:24 [facility] COMPARISON: No previous studies available for comparison. INDICATIONS : Right foot pain post fall. MEDICAL HISTORY : Hypertension. Diabetes mellitus type 2. SURGICAL HISTORY : Tubal ligation. ENCOUNTER: Initial ACUITY: 1 day PAIN SCORE: 5/10 LOCATION: Right foot FINDINGS: Three view examination of the right foot demonstrates no soft tissue swelling, dislocation, or fractu re. The tarsal bones appear intact. The interphalangeal and metatarsophalangeal joints are intact. The calcaneus is intact. Bony mineralization is normal. CONCLUSION: 1. No acute bony abnormality. Bernard Sigala MD on September 29, 2017 at 20:44 Board Certified Radiologist. This report was verified electronically.
[2017-09-29 20:56] LABS: ALBUMIN 3.2 GM/DL (3.4-5.0); AST (GOT) 16 U/L (15-37); BICARBONATE 24.2 MEQ/L (21.0-32.0); BLOOD UREA NITROGEN 12 MG/DL (7-18); CALCIUM 9.6 MG/DL (8.5-10.1); CHLORIDE 106 MEQ/L (98-107); GLOMERULAR FILTRATION RATE 96 ML/MIN (>89); GLUCOSE,RANDOM 100 MG/DL (74-106); MAGNESIUM 1.8 MG/DL (1.5-2.5); SODIUM (NA) 139 MEQ/L (136-145)
[2017-09-29 20:57] LABS: ALT (GPT) 19 U/L (10-53)
[2017-09-29 21:01] LABS: ALKALINE PHOSPHATASE 74 U/L (45-117); TOTAL BILIRUBIN ADULT 0.6 MG/DL (0.2-1.0); TOTAL PROTEIN 7.4 GM/DL (6.4-8.2); TROPONIN I LESS THAN 0.02 NG/ML (0.02-0.05)
[2017-09-29] MEDS ORDERED: ASPIRIN 325 MG TAB PO ONE (21:45)
[2017-09-29] MEDS ORDERED: LABETALOL HCL 100 MG/20 ML VIAL IV PUSH ONE (21:45)
[2017-09-29 22:36] VITALS: BP 181/81; PULSE 78; RESP 18; O2SAT 100
[2017-09-29] MEDS ORDERED: SODIUM CHLORIDE 0.9% FLUSH 10 ML FLUSH IV FLUSH PRN (23:00)
[2017-09-29] MEDS ORDERED: GLUCAGON 1 MG/ML VIAL OTHER PRN (23:00)
[2017-09-29] MEDS ORDERED: DEXTROSE 50% IN WATER 50 ML VIAL(D50) IV PUSH PRN (23:00)
--- NOTE | 2017-09-29 23:07 | HHI.HP ---
HPI Service [facility] Primary Care Physician Naheed Green MD Admission Diagnosis Unsteady gait, R/O TIA Diagnoses: Travel History International Travel<30 Days: No Contact w/Intl Traveler <30 Da: No Traveled to Known Affected Are: No History of Present Illness 81-year-old female with a past medical history significant for hypertension, diabetes mellitus, hyperlipidemia, atrial fibrillation anticoagulated on Eliquis and history of previous CVA presents the emergency department for evaluation of increased falling and weakness 4-5 days. The patient's family reports that for the past 2 days her weakness has become even worse and she was disoriented as to date and location at times. Her weakness is predominantly in her bilateral lower extremities the patient feels that she is unable to lift her legs to walk. She has had frequent falls although denies any loss of consciousness or dizziness. The patient has become so weak that she had to walk with a walker 1 day when normally she is able to ambulate without difficulty. She denies any fever/chills. No chest pain or shortness of breath. No nausea/vomiting/diarrhea/abdominal pain. No lateralizing symptoms. Review of Systems Except as stated in HPI: all other systems reviewed are Neg Past Family Social History Past Medical History Hypertension Diabetes mellitus Hyperlipidemia Atrial fibrillation anticoagulated on Eliquis History of CVA Past Surgical History None Reported Medications Reported Meds & Active Scripts Active Flagyl (Metronidazole) 500 Mg Tab 500 Mg PO TID 4 Days Levaquin (Levofloxacin) 250 Mg Tablet 250 Mg PO DAILY 4 Days Reported Metoprolol Tartrate 50 Mg Tab 50 Mg PO DAILY Invokamet (Canagliflozin-Metformin) 150-1,000 Mg Tab 1 Tab PO DAILY Take with meals. Avoid ethanol. Lisinopril 5 Mg Tab 5 Mg PO DAILY Glipizide 10 Mg Tab 10 Mg PO BIDAC Take 30 minutes before a meal Eliquis (Apixaban) 5 Mg Tab 5 Mg PO DAILY Fosamax (Alendronate Sodium) 70 Mg Tab 70 Mg PO Q7D Atorvastatin (Atorvastatin Calcium) 20 Mg Tab 20 Mg PO HS Allergies: Coded Allergies: No Known Allergies (Verified Allergy, Unknown, 09/29/17) Family History Mom with CAD and diabetes mellitus Social History Denies alcohol, tobacco and illicit drugs. Physical Exam Vital Signs Vital Signs Date Time Temp Pulse Resp B/P (MAP) Pulse Ox O2 Delivery O2 Flow Rate FiO2 09/29/17 22:36 78 18 181/81 (114) 100 Room Air 09/29/17 19:56 Room Air 09/29/17 19:45 98.0 87 16 217/95 (135) 98 Physical Exam GENERAL: female lying in bed SKIN: No rashes, ecchymoses or lesions. Cool and dry. HEAD: Atraumatic. Normocephalic. No temporal or scalp tenderness. EYES: Pupils equal round and reactive. Extraocular motions intact. No scleral icterus. No injection or drainage. ENT: Nose without bleeding, purulent drainage or septal hematoma. Throat without erythema, tonsillar hypertrophy or exudate. Uvula midline. Airway patent. NECK: Trachea midline. No JVD or lymphadenopathy. Supple, nontender, no meningeal signs. CARDIOVASCULAR: Regular rate and rhythm without murmurs, gallops, or rubs. RESPIRATORY: Clear to auscultation. Breath sounds equal bilaterally. No wheezes , rales, or rhonchi. GASTROINTESTINAL: Abdomen soft, non-tender, nondistended. No hepato-splenomegaly , or palpable masses. No guarding. MUSCULOSKELETAL: 2+ pitting edema to the ankle. NEUROLOGICAL: Awake and alert. Cranial nerves II through XII intact. Motor and sensory within normal limits. Five out of 5 muscle strength in all muscle groups. Normal speech. Laboratory Laboratory Tests Test 09/29/17 20:04 White Blood Count 9.6 Red Blood Count 4.35 Hemoglobin 10.1 Hematocrit 31.9 Mean Corpuscular Volume 73.4 Mean Corpuscular Hemoglobin 23.1 Mean Corpuscular Hemoglobin Concent 31.5 Red Cell Distribution Width 15.5 Platelet Count 379 Mean Platelet Volume 7.6 Neutrophils (%) (Auto) 67.9 Lymphocytes (%) (Auto) 19.6 Monocytes (%) (Auto) 11.0 Eosinophils (%) (Auto) 1.0 Basophils (%) (Auto) 0.5 Neutrophils # (Auto) 6.5 Lymphocytes # (Auto) 1.9 Monocytes # (Auto) 1.1 Eosinophils # (Auto) 0.1 Basophils # (Auto) 0.1 CBC Comment DIFF FINAL Differential Comment Prothrombin Time 10.9 Prothromb Time International Ratio 1.1 Activated Partial Thromboplast Time 23.4 Urine Color LIGHT-YELLOW Urine Turbidity CLEAR Urine pH 5.0 Urine Specific [place] 1.012 Urine Protein NEG Urine Glucose (UA) TRACE Urine Ketones 10 Urine Occult Blood NEG Urine Nitrite NEG Urine Bilirubin NEG Urine Urobilinogen LESS THAN 2.0 Urine Leukocyte Esterase NEG Urine Amorphous Sediment RARE Urine Mucus FEW Microscopic Urinalysis Comment CULT NOT INDICATED Blood Urea Nitrogen 12 Creatinine 0.60 Random Glucose 100 Total Protein 7.4 Albumin 3.2 Calcium Level 9.6 Magnesium Level 1.8 Alkaline Phosphatase 74 Aspartate Amino Transf (AST/SGOT) 16 Alanine Aminotransferase (ALT/SGPT) 19 Total Bilirubin 0.6 Sodium Level 139 Potassium Level 3.6 Chloride Level 106 Carbon Dioxide Level 24.2 Anion Gap 9 Estimat Glomerular Filtration Rate 96 Ammonia 14 Total Creatine Kinase 35 Troponin I LESS THAN 0.02 B-Type Natriuretic Peptide 80 Lipase 104 Result Diagram: 09/29/17200309/29/172003 Caprini VTE Risk Assessment Caprini VTE Risk Assessment: Mod/High Risk (score >= 2) Caprini Risk Assessment Model Point Value = 1 Point Value = 2 Point Value = 3 Point Value = 5 Age 41-60 Minor surgery BMI > 25 kg/m2 Swollen legs Varicose veins or History of unexplained or recurrent spontaneous Oral contraceptives or hormone replacement Sepsis (< 1 month) Serious lung disease, including pneumonia (< 1 month) Abnormal pulmonary function Acute myocardial infarction Congestive heart failure (< 1 month) History of inflammatory bowel disease Medical patient at bed rest Age 61-74 Arthroscopic surgery Major open surgery (> 45 min) Laparoscopic surgery (> 45 min) Malignancy Confined to bed (> 72 hours) Immobilizing plaster cast Central venous access Age >= 75 History of VTE Family history of VTE Factor V Leiden Prothrombin [id number] Lupus anticoagulant Anticardiolipin antibodies Elevated serum homocysteine Heparin-induced thrombocytopenia Other congenital or acquired thrombophilia Stroke (< 1 month) Elective arthroplasty Hip, pelvis, or leg fracture Acute spinal cord injury (< 1 month) Prophylaxis Regimen Total Risk Factor Score Risk Level Prophylaxis Regimen 0-1 Low Early ambulation 2 Moderate Order ONE of the following: *Sequential Compression Device (SCD) *Heparin 5000 units SQ BID 3-4 Higher Order ONE of the following medications: *Heparin 5000 units SQ TID *Enoxaparin/Lovenox 40 mg SQ daily (WT < 150 kg, CrCl > 30 mL/min) *Enoxaparin/Lovenox 30 mg SQ daily (WT < 150 kg, CrCl > 10-29 mL/min) *Enoxaparin/Lovenox 30 mg SQ BID (WT < 150 kg, CrCl > 30 mL/min) AND/OR *Sequential Compression Device (SCD) 5 or more Highest Order ONE of the following medications: *Heparin 5000 units SQ TID (Preferred with Epidurals) *Enoxaparin/Lovenox 40 mg SQ daily (WT < 150 kg, CrCl > 30 mL/min) *Enoxaparin/Lovenox 30 mg SQ daily (WT < 150 kg, CrCl > 10-29 mL/min) *Enoxaparin/Lovenox 30 mg SQ BID (WT < 150 kg, CrCl > 30 mL/min) AND *Sequential Compression Device (SCD) Assessment and Plan Assessment and Plan Assessment/plan: 1. Increasing weakness/confusion/?TIA Head CT negative for acute findings with remote small left occipital lobe infarct Patient reports she feels well and states her symptoms have resolved TIA workup pending; MRI/MRA/carotid ultrasound Neurology consulted, appreciate recommendations Physical therapy consulted, appreciate recommendations 2. Diabetes mellitus Sliding-scale insulin Monitor blood glucose 3. Atrial fibrillation Continue home medications Continue anticoagulation with Eliquis 4. Hypertension/hyperlipidemia Continue home medications 5. History of previous CVA Appreciate neurology recommendations FEN Heart healthy diet after nursing bedside swallow eval Electrolytes: Monitor and replete as needed Alexandra Monteiro MD September 29, 2017 23:07
[2017-09-30 05:37] VITALS: BP 145/72; PULSE 94; RESP 18; TEMP 98.6; O2SAT 94
[2017-09-30 06:11] LABS: AUTOMATED NEUTROPHIL # 5.1 TH/MM3 (1.8-7.7); BASOPHIL % 0.5 % (0.0-2.0); EOSINOPHIL # 0.1 TH/MM3 (0-0.4); EOSINOPHIL % 1.1 % (0.0-4.0); HEMOGLOBIN 9.5 GM/DL (11.6-15.3); LYMPH % 18.3 % (9.0-44.0); LYMPHOCYTE # 1.4 TH/MM3 (1.0-4.8); MEAN CORPUSCULAR HEMOGLOBIN 23.1 PG (27.0-34.0); MEAN CORPUSCULAR HGB CONC 31.6 % (32.0-36.0); MEAN PLATELET VOLUME 7.6 FL (7.0-11.0); MONO % 13.6 % (0.0-8.0); NEUT % 66.5 % (16.0-70.0); PLATELET COUNT 346 TH/MM3 (150-450); RED BLOOD COUNT 4.11 MIL/MM3 (4.00-5.30); RED CELL DISTRIBUTION WIDTH 15.9 % (11.6-17.2); WHITE BLOOD COUNT 7.7 TH/MM3 (4.0-11.0)
[2017-09-30 06:40] LABS: BICARBONATE 27.3 MEQ/L (21.0-32.0); BLOOD UREA NITROGEN 12 MG/DL (7-18); CHLORIDE 107 MEQ/L (98-107); CHOLESTEROL 80 MG/DL (120-200); CHOLESTEROL/ HDL RATIO 1.79 RATIO; CREATININE 0.66 MG/DL (0.50-1.00); GLOMERULAR FILTRATION RATE 86 ML/MIN (>89); GLUCOSE,RANDOM 216 MG/DL (74-106); HDL CHOLESTEROL 44.6 MG/DL (40.0-60.0); LDL CHOLESTEROL 19 MG/DL (0-99); SODIUM (NA) 140 MEQ/L (136-145); TRIGLYCERIDES 80 MG/DL (42-150)
[2017-09-30 07:43] VITALS: BP 180/85; PULSE 90; RESP 18; TEMP 98.2; O2SAT 95
[2017-09-30] MEDS ORDERED: cloNIDine HCL 0.1 MG TAB PO PRN (08:15)
--- NOTE | 2017-09-30 08:58 | EKG ---
Date Performed: 09/29/2017 Time Performed: 19:46:12 PTAGE: 81 years EKG: Sinus rhythm MARKED LEFT AXIS DEVIATION POSSIBLE RIGHT VENTRICULAR CONDUCTION DELAY MODERATE VOLTAGE CRITERIA FOR LVH, CONSIDER NORMAL VARIANT NONSPECIFIC T-WAVE ABNORMALITY ABNORMAL ECG PREVIOUS TRACING 07/20/17 Since the previous tracing, no significant change noted DOCTOR: Lance Gonzalez Interpretating Date/Time 09/30/2017 08:52:33
[2017-09-30] MEDS ORDERED: METOPROLOL TARTRATE 50 MG TAB PO SCH (09:00)
--- NOTE | 2017-09-30 09:23 | RADRPT ---
EXAM DATE/TIME: 09/30/2017 08:06 [facility] COMPARISON: No previous studies available for comparison. EXTERNAL COMPARISON : [facility], carotids, October 26, 2013 INDICATIONS : Weakness. MEDICAL HISTORY : Stroke. Hypercholesterolemia. Hypertension. TIA. Diabetes. Diverticulitis. Atrial fibrillation. SURGICAL HISTORY : Tubal ligation. Blepharoplasty. Bilateral cataract extraction. ENCOUNTER: Initial ACUITY: 2 days PAIN SCORE: 0/10 LOCATION: Bilateral neck PEAK SYSTOLIC VELOCITIES (cm/sec): ICA/CCA RATIO: Right: 0.9 Left: 0.8 ICA: Right: 95 Left: 98 CCA: Right: 111 Left: 124 ECA: Right: 90 Left: 114 VERTEBRAL: Right: 68 antegrade Left: 83 antegrade Elevated flow velocities and ICA/CCA ratios have been found to correlate with increased degrees of vessel stenosis, calculated as percentage of diameter relative to a normal segment of distal ICA/CCA FINDINGS: RIGHT CAROTID: No significant stenosis is visualized. The waveforms are within normal limits. LEFT CAROTID: No significant stenosis is visualized. The waveforms are within normal limits. VERTEBRAL ARTERIES: Antegrade flow is seen in both vertebral arteries. MISCELLANEOUS: None. CONCLUSION: 1. Minimal bilateral carotid plaque without significant flow-limiting stenosis. 2. Antegrade vertebral artery flow bilaterally. Isidoro Talamantes MD on September 30, 2017 at 9:20 Board Certified Radiologist. This report was verified electronically.
[2017-09-30] MEDS: INSULIN ASPART SUPPLEMENTAL SCALE SQ SCH ×4 (09:38→21:18)
[2017-09-30] MEDS: NIFEdipine 30 MG SUSTAINED RELEASE TAB PO SCH (09:39)
[2017-09-30] MEDS: APIXABAN 5 MG TABLET PO SCH (09:39)
[2017-09-30] MEDS: METOPROLOL TARTRATE 50 MG TAB PO SCH ×2 (09:39→21:19)
[2017-09-30] MEDS: SODIUM CHLORIDE 0.9% FLUSH 10 ML FLUSH IV FLUSH SCH ×2 (09:39→21:19)
[2017-09-30] MEDS: LISINOPRIL 5 MG TAB PO SCH (09:39)
--- NOTE | 2017-09-30 10:28 | HHI.PR ---
Subjective Remarks Follow-up for generalized weakness, fall. Patient is currently sitting at the side of the bed and working with physical therapy. Normally she is able to ambulate. However in the recent days she has been weak especially bilateral lower extremities. No chest pain, shortness of breath, fever or chills. No diarrhea or abdominal pain. No speech difficulties. Objective Vitals Vital Signs Date Time Temp Pulse Resp B/P (MAP) Pulse Ox O2 Delivery O2 Flow Rate FiO2 09/30/17 07:43 98.2 90 18 180/85 (116) 95 09/30/17 05:37 98.6 94 18 145/72 (96) 94 09/29/17 23:33 09/29/17 22:36 78 18 181/81 (114) 100 Room Air 09/29/17 19:56 Room Air 09/29/17 19:45 98.0 87 16 217/95 (135) 98 I/O 09/29/17 09/29/17 09/29/17 09/30/17 09/30/17 09/30/17 07:00 15:00 23:00 07:00 15:00 23:00 Output Total 1000 ml Balance -1000 ml Output Urine Total 1000 ml Result Diagram: 09/30/17 0544 09/30/17 0544 Imaging Last Impressions Carotid Artery Ultrasound 09/30/17 0000 Signed Impressions: Service Date/Time: Saturday, September 30, 2017 08:06 - CONCLUSION: 1. Minimal bilateral carotid plaque without significant flow-limiting stenosis. 2. Antegrade vertebral artery flow bilaterally. Isidoro Talamantes MD Head CT 09/29/171957 Signed Impressions: Service Date/Time: Friday, September 29, 2017 20:14 - CONCLUSION: 1. Remote small left occipital lobe infarct. No acute findings. Chronic white matter ischemic changes. Bernard Sigala MD Chest X-Ray 09/29/171957 Signed Impressions: Service Date/Time: Friday, September 29, 2017 20:23 - CONCLUSION: 1. Minimal basilar atelectasis or scarring. No effusion. Bernard Sigala MD Foot X-Ray 09/29/17 0000 Signed Impressions: Service Date/Time: Friday, September 29, 2017 20:24 - CONCLUSION: 1. No acute bony abnormality. Bernard Sigala MD Cervical Spine CT 09/29/17 0000 Signed Impressions: Service Date/Time: Friday, September 29, 2017 20:14 - CONCLUSION: 1. No acute findings. Moderate degenerative disc disease and facet arthropathy. Bernard Sigala MD Objective Remarks GENERAL: Alert, oriented 3, NAD. SKIN: Warm and dry. HEAD: Normocephalic. EYES: No scleral icterus. No injection or drainage. NECK: Supple, trachea midline. No JVD or lymphadenopathy. CARDIOVASCULAR: Regular rate and rhythm without murmurs, gallops, or rubs. RESPIRATORY: Breath sounds equal bilaterally. No accessory muscle use. GASTROINTESTINAL: Abdomen soft, non-tender, nondistended. MUSCULOSKELETAL: No cyanosis, or edema. BACK: Nontender without obvious deformity. No CVA tenderness. Procedures None A/P Problem List: (1) Type 2 diabetes mellitus ICD Code: E11.9 - Type 2 diabetes mellitus without complications Status: Acute (2) Unsteady gait ICD Code: R26.81 - Unsteadiness on feet Status: Acute (3) Atrial fibrillation ICD Code: I48.91 - Unspecified atrial fibrillation Status: Acute Assessment and Plan Ms. Olmos is a pleasant 81-year-old female with a history of atrial fibrillation, previous CVA who presented to the emergency department on 2017 due to generalized weakness as well as confusion. Due to bilateral lower extremity weakness, she has been falling frequently. Denies any speech difficulty or unilateral weakness. Generalized weakness Confusion -Head CT negative for acute findings with remote small left occipital lobe infarct -Neurology consulted. However, her symptoms do not appear to be consistent with CVA. -Will check Vitamin B12 level. Diabetes mellitus -Takes Advil, and metformin as well as glipizide at home. -We will hold all oral medications. Continue sliding scale insulin and start Levemir 10 units nightly. Hypertension Hyperlipidemia Atrial fibrillation Continue apixaban 5 mg twice daily. Continue atorvastatin 20 mg nightly, lisinopril 5 mg daily, metoprolol tartrate 50 mg twice daily Will add nifedipine 30 mg daily. Patient's blood pressure has been somewhat high today. Full code. Apixaban. Tomas Anglin DO September 30, 2017 10:28 am
[2017-09-30] MEDS: SODIUM CHLOR 0.9% 1000 ML INJ 1,000 ML IV SCH (10:38)
[2017-09-30 11:23] VITALS: BP 156/70; PULSE 117; RESP 20; TEMP 98.3; O2SAT 92
--- NOTE | 2017-09-30 12:34 | RADRPT ---
EXAM DATE/TIME: 09/30/2017 11:43 [facility] COMPARISON: CT BRAIN W/O CONTRAST, September 29, 2017, 20:14. MRI BRAIN W/O CONTRAST, September 30, 2017, 11:43. MRA BRAIN W/O CONTRAST, December 06, 2015, 13:10. INDICATIONS : Unsteady gait. MEDICAL HISTORY : Stroke Hypertension. Diabetes mellitus type 2. SURGICAL HISTORY : Tubal ligation. ENCOUNTER: Subsequent ACUITY: 2 day PAIN SCORE: 0/10 LOCATION: cranial Please note a normal MRA of the brain does not entirely exclude the possibility of a small aneurysm, nor the possibility of distal intracranial vessel disease. TECHNIQUE: 3D time of flight MRA was performed. Source images, multiplanar STS MIP, and 3D volume MIP reconstru ctions were reviewed. FINDINGS: There is excellent visualization of the major intracranial arteries out to the second-order branch ve ssels. Today's exam is compared to the prior study. 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 This is stable and unchanged compared to the prior study. The previously noted stenosis involv ing the P1/P2 segments on the right side are not appreciated on today's examination. There may be val e mild residual narrowing remaining at this level. But there is no evidence of any significant stenos is or occlusion. CONCLUSION: 1. 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 2. Questionable mild narrowing involving the P1-P2 segment on the right side. However, this is signif icantly improved compared to the prior study. 3. Otherwise, the rest of the exam is stable compared to the prior study. James Hawkins MD on September 30, 2017 at 12:27 Board Certified Radiologist. This report was verified electronically.
--- NOTE | 2017-09-30 12:47 | RADRPT ---
EXAM DATE/TIME: 09/30/2017 11:43 [facility] COMPARISON: MRI BRAIN W/O CONTRAST, December 06, 2015, 20:39. INDICATIONS : Unsteady gait. History of prior infarct in the left occipital lobe 2016. MEDICAL HISTORY : Stroke Hypertension. Diabetes mellitus type 2. SURGICAL HISTORY : Tubal ligation. ENCOUNTER: Subsequent ACUITY: 2 day PAIN SCORE: 0/10 LOCATION: cranial TECHNIQUE: Multiplanar, multisequence MRI of the brain was performed without contrast. FINDINGS: CEREBRUM: The ventricles are normal for age. No evidence of midline shift, mass lesion, hemorrhage or acute in farction. There is an area of encephalomalacia from the old infarct in the left occipital lobe with s urrounding gliosis. No extraaxial fluid collections are seen. The pituitary gland and suprasellar ci bahena are normal in configuration. WHITE MATTER: On the flair weighted images there is extensive increased signal noted in the centrum semiovale and p eriventricular white matter consistent with severe chronic small vessel ischemic change. POSTERIOR FOSSA: The cerebellum and brainstem are intact. The 4th ventricle is midline. The cerebellopontine angle is unremarkable. The cerebellar tonsils are normal in position. DIFFUSION IMAGING: No focal areas of restricted diffusion are seen. No evidence of acute infarction. EXTRACRANIAL: The visualized portions of the orbits and paranasal sinuses are unremarkable. CONCLUSION: 1. No acute hemorrhage, mass or acute infarction. 2. Old area of encephalomalacia and gliosis in the left occipital lobe at site of prior infarction. 3. Atrophy and chronic small vessel ischemic change. Jaret Hussein MD on September 30, 2017 at 12:43 Board Certified Radiologist. This report was verified electronically.
[2017-09-30 15:18] LABS: HEMOGLOBIN A1C 7.8 % (4.3-6.0)
[2017-09-30 16:05] VITALS: BP 160/75; PULSE 113; RESP 18; TEMP 97.6; O2SAT 95
[2017-09-30 20:47] VITALS: BP 134/60; PULSE 133; RESP 17; TEMP 98.9; O2SAT 94
[2017-09-30] MEDS ORDERED: INSULIN DETEMIR 100 UNITS/ML VIAL SQ SCH (21:00)
[2017-09-30] MEDS: ATORVASTATIN 20 MG TAB PO SCH (21:19)
[2017-09-30 23:40] VITALS: BP 133/62; PULSE 72; RESP 17; TEMP 98.7; O2SAT 96
[2017-10-01] MEDS: SODIUM CHLOR 0.9% 1000 ML INJ 1,000 ML IV SCH ×2 (00:36→05:14)
[2017-10-01 04:10] VITALS: BP 170/76; PULSE 77; RESP 16; TEMP 98.7; O2SAT 97
[2017-10-01 08:08] VITALS: BP 174/71; PULSE 72; RESP 22; TEMP 98.4; O2SAT 96
[2017-10-01] MEDS: INSULIN ASPART SUPPLEMENTAL SCALE SQ SCH ×4 (08:21→21:42)
[2017-10-01] MEDS: SODIUM CHLORIDE 0.9% FLUSH 10 ML FLUSH IV FLUSH SCH ×2 (09:09→21:42)
[2017-10-01] MEDS: NIFEdipine 30 MG SUSTAINED RELEASE TAB PO SCH (09:09)
[2017-10-01] MEDS: APIXABAN 5 MG TABLET PO SCH (09:10)
[2017-10-01] MEDS: CYANOCOBALAMIN 1,000 MCG TAB PO SCH (09:10)
[2017-10-01] MEDS: LISINOPRIL 5 MG TAB PO SCH (09:10)
[2017-10-01] MEDS: METOPROLOL TARTRATE 50 MG TAB PO SCH ×2 (09:10→21:41)
--- NOTE | 2017-10-01 09:21 | HHI.PR ---
Subjective Remarks Follow-up for generalized weakness, fall. Patient is doing well. Still feels weak. Continues to work with PT. Objective Vitals Vital Signs Date Time Temp Pulse Resp B/P (MAP) Pulse Ox O2 Delivery O2 Flow Rate FiO2 10/01/17 08:08 98.4 72 22 174/71 (105) 96 10/01/17 04:10 98.7 77 16 170/76 (107) 97 09/30/17 23:40 98.7 72 17 133/62 (85) 96 09/30/17 20:47 98.9 133 17 134/60 (84) 94 09/30/17 16:05 97.6 113 18 160/75 (103) 95 09/30/17 11:23 98.3 117 20 156/70 (98) 92 I/O 09/30/17 09/30/17 09/30/17 10/01/17 10/01/17 10/01/17 07:00 15:00 23:00 07:00 15:00 23:00 Intake Total 480 ml Output Total 1750 ml 600 ml Balance -1750 ml -120 ml Intake Oral 480 ml Output Urine Total 1750 ml 600 ml # Voids 1 Result Diagram: 09/30/17 0544 09/30/17 0544 Imaging Last Impressions Head Magnetic Resonance Angiography 09/30/17 0000 Signed Impressions: Service Date/Time: Saturday, September 30, 2017 11:43 - CONCLUSION: 1. 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 2. Questionable mild narrowing involving the P1- P2 segment on the right side. However, this is significantly improved compared to the prior study. 3. Otherwise, the rest of the exam is stable compared to the prior study. James Hawkins MD Carotid Artery Ultrasound 09/30/17 0000 Signed Impressions: Service Date/Time: Saturday, September 30, 2017 08:06 - CONCLUSION: 1. Minimal bilateral carotid plaque without significant flow-limiting stenosis. 2. Antegrade vertebral artery flow bilaterally. Isidoro Talamantes MD Brain MRI 09/30/17 0000 Signed Impressions: Service Date/Time: Saturday, September 30, 2017 11:43 - CONCLUSION: 1. No acute hemorrhage, mass or acute infarction. 2. Old area of encephalomalacia and gliosis in the left occipital lobe at site of prior infarction. 3. Atrophy and chronic small vessel ischemic change. Jaret Hussein MD Head CT 09/29/171957 Signed Impressions: Service Date/Time: Friday, September 29, 2017 20:14 - CONCLUSION: 1. Remote small left occipital lobe infarct. No acute findings. Chronic white matter ischemic changes. Bernard Sigala MD Chest X-Ray 09/29/171957 Signed Impressions: Service Date/Time: Friday, September 29, 2017 20:23 - CONCLUSION: 1. Minimal basilar atelectasis or scarring. No effusion. Bernard Sigala MD Foot X-Ray 09/29/17 0000 Signed Impressions: Service Date/Time: Friday, September 29, 2017 20:24 - CONCLUSION: 1. No acute bony abnormality. Bernard Sigala MD Cervical Spine CT 09/29/17 0000 Signed Impressions: Service Date/Time: Friday, September 29, 2017 20:14 - CONCLUSION: 1. No acute findings. Moderate degenerative disc disease and facet arthropathy. Bernard Sigala MD Objective Remarks GENERAL: Alert, oriented 3, NAD. SKIN: Warm and dry. HEAD: Normocephalic. EYES: No scleral icterus. No injection or drainage. NECK: Supple, trachea midline. No JVD or lymphadenopathy. CARDIOVASCULAR: Regular rate and rhythm without murmurs, gallops, or rubs. RESPIRATORY: Breath sounds equal bilaterally. No accessory muscle use. GASTROINTESTINAL: Abdomen soft, non-tender, nondistended. MUSCULOSKELETAL: No cyanosis, or edema. BACK: Nontender without obvious deformity. No CVA tenderness. Procedures None A/P Problem List: (1) Type 2 diabetes mellitus ICD Code: E11.9 - Type 2 diabetes mellitus without complications Status: Acute (2) Unsteady gait ICD Code: R26.81 - Unsteadiness on feet Status: Acute (3) Atrial fibrillation ICD Code: I48.91 - Unspecified atrial fibrillation Status: Acute Assessment and Plan Ms. Olmos is a pleasant 81-year-old female with a history of atrial fibrillation, previous CVA who presented to the emergency department on 2017 due to generalized weakness as well as confusion. Due to bilateral lower extremity weakness, she has been falling frequently. Denies any speech difficulty or unilateral weakness. Generalized weakness Confusion -Head CT negative for acute findings with remote small left occipital lobe infarct -Her symptoms do not appear to be consistent with CVA. -Vitamin B12 level low normal range. Will start Vitamin B12 PO. Diabetes mellitus -Takes Invokana+metformin as well as glipizide at home. -Continue sliding scale insulin and start Levemir 10 units nightly. Hypertension Hyperlipidemia Atrial fibrillation Continue apixaban 5 mg twice daily. Continue atorvastatin 20 mg nightly, lisinopril 5 mg daily, metoprolol tartrate 50 mg twice daily Will continue nifedipine 30 mg daily. Full code. Apixaban. Discharge: Possible discharge SNF tomorrow once SNF arranged. Tomas Anglin DO October 01, 2017 9:21 am
[2017-10-01 12:08] VITALS: BP 149/70; PULSE 69; RESP 20; TEMP 98.1; O2SAT 95
[2017-10-01 15:39] VITALS: BP 179/79; PULSE 81; RESP 18; TEMP 97.9; O2SAT 96
[2017-10-01 20:14] VITALS: BP 139/65; PULSE 84; RESP 16; TEMP 98.8; O2SAT 95
[2017-10-01] MEDS ORDERED: INSULIN DETEMIR 100 UNITS/ML VIAL SQ SCH (21:00)
[2017-10-01] MEDS: ATORVASTATIN 20 MG TAB PO SCH (21:41)
[2017-10-01 23:00] VITALS: BP 119/66; PULSE 82; RESP 16; TEMP 98.5; O2SAT 96
[2017-10-02 04:00] VITALS: BP 135/64; PULSE 71; RESP 16; TEMP 98.6; O2SAT 94
[2017-10-02 07:37] VITALS: BP 148/69; PULSE 70; RESP 18; TEMP 98.2; O2SAT 96
[2017-10-02] MEDS: INSULIN ASPART SUPPLEMENTAL SCALE SQ SCH ×2 (08:00→12:00)
[2017-10-02] MEDS: APIXABAN 5 MG TABLET PO SCH (08:51)
[2017-10-02] MEDS: CYANOCOBALAMIN 1,000 MCG TAB PO SCH (08:51)
[2017-10-02] MEDS: LISINOPRIL 5 MG TAB PO SCH (08:51)
[2017-10-02] MEDS: METOPROLOL TARTRATE 50 MG TAB PO SCH (08:51)
[2017-10-02] MEDS: SODIUM CHLORIDE 0.9% FLUSH 10 ML FLUSH IV FLUSH SCH (08:51)
[2017-10-02] MEDS: NIFEdipine 30 MG SUSTAINED RELEASE TAB PO SCH (08:51)
[2017-10-02] MEDS ORDERED: METO-309 PO (12:05)
[2017-10-02] MEDS ORDERED: GLIM1TAB PO (12:05)
[2017-10-02 12:16] VITALS: BP 140/60; PULSE 68; RESP 18; TEMP 98.2; O2SAT 96
--- NOTE | 2017-10-02 13:49 | HHI.PR ---
Subjective Remarks Follow-up for generalized weakness, fall. Patient is currently resting well in bed. No acute concerns. Family is at bedside. Objective Vitals Vital Signs Date Time Temp Pulse Resp B/P (MAP) Pulse Ox O2 Delivery O2 Flow Rate FiO2 10/02/17 12:16 98.2 68 18 140/60 (86) 96 10/02/17 07:37 98.2 70 18 148/69 (95) 96 10/02/17 04:00 98.6 71 16 135/64 (87) 94 10/01/17 23:00 98.5 82 16 119/66 (83) 96 10/01/17 20:14 98.8 84 16 139/65 (89) 95 10/01/17 15:39 97.9 81 18 179/79 (112) 96 I/O 10/01/17 10/01/17 10/01/17 10/02/17 10/02/17 10/02/17 07:00 15:00 23:00 07:00 15:00 23:00 Intake Total 120 ml Balance 120 ml TPN/PPN 120 ml Result Diagram: 09/30/17 0544 09/30/17 0544 Objective Remarks GENERAL: Alert, oriented 3, NAD. SKIN: Warm and dry. HEAD: Normocephalic. EYES: No scleral icterus. No injection or drainage. NECK: Supple, trachea midline. No JVD or lymphadenopathy. CARDIOVASCULAR: Regular rate and rhythm without murmurs, gallops, or rubs. RESPIRATORY: Breath sounds equal bilaterally. No accessory muscle use. GASTROINTESTINAL: Abdomen soft, non-tender, nondistended. MUSCULOSKELETAL: No cyanosis, or edema. BACK: Nontender without obvious deformity. No CVA tenderness. Procedures None A/P Problem List: (1) Type 2 diabetes mellitus ICD Code: E11.9 - Type 2 diabetes mellitus without complications Status: Acute (2) Unsteady gait ICD Code: R26.81 - Unsteadiness on feet Status: Acute (3) Atrial fibrillation ICD Code: I48.91 - Unspecified atrial fibrillation Status: Acute Assessment and Plan Ms. Olmos is a pleasant 81-year-old female with a history of atrial fibrillation, previous CVA who presented to the emergency department on 2017 due to generalized weakness as well as confusion. Due to bilateral lower extremity weakness, she has been falling frequently. Denies any speech difficulty or unilateral weakness. Generalized weakness Confusion -Head CT negative for acute findings with remote small left occipital lobe infarct -Her symptoms do not appear to be consistent with CVA. -Vitamin B12 level low normal range. Continue vitamin B12 PO. Diabetes mellitus -Takes Invokana+metformin as well as glipizide at home. -Continue sliding scale insulin and Levemir 10 units nightly. -Upon discharge, would prefer to continue Invokana plus metformin and low- dose glimepiride. Hypertension Hyperlipidemia Atrial fibrillation Continue apixaban 5 mg twice daily. Continue atorvastatin 20 mg nightly, lisinopril 5 mg daily, metoprolol tartrate 50 mg twice daily continue nifedipine 30 mg daily. Full code. Apixaban. Discharge: Patient can be discharged to SNF when bed arranged. Tomas Anglin DO October 02, 2017 1:49 pm
--- NOTE | 2017-10-04 07:23 | HHI.DS ---
Discharge Summary Admission Date September 29, 2017 at 10:59 pm Discharge Date: October 02, 2017 Admitting Diagnosis Unsteady gait, R/O TIA (1) Type 2 diabetes mellitus ICD Code: E11.9 - Type 2 diabetes mellitus without complications Status: Acute (2) Unsteady gait ICD Code: R26.81 - Unsteadiness on feet Status: Acute (3) Atrial fibrillation ICD Code: I48.91 - Unspecified atrial fibrillation Status: Acute Procedures None Brief History - From Admission 81-year-old female with a past medical history significant for hypertension, diabetes mellitus, hyperlipidemia, atrial fibrillation anticoagulated on Eliquis and history of previous CVA presents the emergency department for evaluation of increased falling and weakness 4-5 days. The patient's family reports that for the past 2 days her weakness has become even worse and she was disoriented as to date and location at times. Her weakness is predominantly in her bilateral lower extremities the patient feels that she is unable to lift her legs to walk. She has had frequent falls although denies any loss of consciousness or dizziness. The patient has become so weak that she had to walk with a walker 1 day when normally she is able to ambulate without difficulty. She denies any fever/chills. No chest pain or shortness of breath. No nausea/vomiting/diarrhea/abdominal pain. No lateralizing symptoms. CBC/BMP: 09/30/17 0544 09/30/17 0544 Imaging Last Impressions Head Magnetic Resonance Angiography 09/30/17 0000 Signed Impressions: Service Date/Time: Saturday, September 30, 2017 11:43 - CONCLUSION: 1. 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 2. Questionable mild narrowing involving the P1- P2 segment on the right side. However, this is significantly improved compared to the prior study. 3. Otherwise, the rest of the exam is stable compared to the prior study. James Hawkins MD Carotid Artery Ultrasound 09/30/17 0000 Signed Impressions: Service Date/Time: Saturday, September 30, 2017 08:06 - CONCLUSION: 1. Minimal bilateral carotid plaque without significant flow-limiting stenosis. 2. Antegrade vertebral artery flow bilaterally. Isidoro Talamantes MD Brain MRI 09/30/17 0000 Signed Impressions: Service Date/Time: Saturday, September 30, 2017 11:43 - CONCLUSION: 1. No acute hemorrhage, mass or acute infarction. 2. Old area of encephalomalacia and gliosis in the left occipital lobe at site of prior infarction. 3. Atrophy and chronic small vessel ischemic change. Jaret Hussein MD Head CT [id number]/29/[id number] Signed Impressions: Service Date/Time: Friday, September 29, 2017 20:14 - CONCLUSION: 1. Remote small left occipital lobe infarct. No acute findings. Chronic white matter ischemic changes. Bernard Sigala MD Chest X-Ray [id number]/29/171957 Signed Impressions: Service Date/Time: Friday, September 29, 2017 20:23 - CONCLUSION: 1. Minimal basilar atelectasis or scarring. No effusion. Bernard Sigala MD Foot X-Ray 09/29/17 0000 Signed Impressions: Service Date/Time: Friday, September 29, 2017 20:24 - CONCLUSION: 1. No acute bony abnormality. Bernard Sigala MD Cervical Spine CT 09/29/17 0000 Signed Impressions: Service Date/Time: Friday, September 29, 2017 20:14 - CONCLUSION: 1. No acute findings. Moderate degenerative disc disease and facet arthropathy. Bernard Sigala MD PE at Discharge GENERAL: Alert, oriented 3, NAD. SKIN: Warm and dry. HEAD: Normocephalic. EYES: No scleral icterus. No injection or drainage. NECK: Supple, trachea midline. No JVD or lymphadenopathy. CARDIOVASCULAR: Regular rate and rhythm without murmurs, gallops, or rubs. RESPIRATORY: Breath sounds equal bilaterally. No accessory muscle use. GASTROINTESTINAL: Abdomen soft, non-tender, nondistended. MUSCULOSKELETAL: No cyanosis, or edema. BACK: Nontender without obvious deformity. No CVA tenderness. Pt update on day of discharge Patient is doing well. No acute concerns. She continues to work with PT. No fever, chills. Hospital Course Ms. Olmos is a pleasant 81-year-old female with a history of atrial fibrillation, previous CVA who presented to the emergency department on 2017 due to generalized weakness as well as confusion. Due to bilateral lower extremity weakness, she has been falling frequently. Denies any speech difficulty or unilateral weakness. Generalized weakness Confusion -Head CT negative for acute findings with remote small left occipital lobe infarct -Her symptoms do not appear to be consistent with CVA. -Vitamin B12 level low normal range. Continue vitamin B12 PO. Diabetes mellitus -Takes Invokana+metformin as well as glipizide at home. -Continued sliding scale insulin and Levemir 10 units nightly in the hospital. -Upon discharge, would prefer to continue Invokana plus metformin and low- dose glimepiride. Hypertension Hyperlipidemia Atrial fibrillation Continue apixaban 5 mg twice daily. Continue atorvastatin 20 mg nightly, lisinopril 5 mg daily, metoprolol tartrate 50 mg twice daily continue nifedipine 30 mg daily. Full code. Apixaban. Pt Condition on Discharge: Good Discharge Disposition: Discharge to SNF Discharge Time: <= 30 minutes Discharge Instructions DIET: Follow Instructions for: Diabetic Diet Activities you can perform: Regular-No Restrictions Follow up Referrals: PCP Follow-up - 2 Weeks New Medications: Glimepiride (Glimepiride) 1 Mg Tab 1 MG PO DAILY for Blood Sugar Management, #30 TAB 0 Refills Take with breakfast or first main meal Metoprolol Tartrate (Lopressor) 50 Mg Tab 50 MG PO BID for Heart, #60 TAB Continued Medications: Alendronate (Fosamax) 70 Mg Tab 70 MG PO Q7D for Osteoporosis Treatment, #4 TAB 0 Refills Apixaban (Eliquis) 5 Mg Tab 5 MG PO DAILY for Blood Clot Prevention, #60 TAB 0 Refills Atorvastatin (Atorvastatin) 20 Mg Tab 20 MG PO HS for Cholesterol Management, #30 TAB 0 Refills Canagliflozin-Metformin (Invokamet) 150-1,000 Mg Tab 1 TAB PO DAILY for Blood Sugar Management, #60 TAB 0 Refills Take with meals. Avoid ethanol. Lisinopril (Lisinopril) 5 Mg Tab 5 MG PO DAILY for Blood Pressure Management, #30 TAB 0 Refills Discontinued Medications: Glipizide (Glipizide) 10 Mg Tab 10 MG PO BIDAC for Blood Sugar Management, #60 TAB 0 Refills Take 30 minutes before a meal Levofloxacin (Levaquin) 250 Mg Tablet 250 MG PO DAILY for Infection for 4 Days, #4 TAB 0 Refills Metoprolol Tartrate (Metoprolol Tartrate) 50 Mg Tab 50 MG PO DAILY, #30 TAB 0 Refills Metronidazole (Flagyl) 500 Mg Tab 500 MG PO TID for Infection for 4 Days, #12 TAB 0 Refills Tomas Anglin DO October 04, 2017 07:23
== END 2017-10-02 16:17 | disposition home or self-care (01) ==
LOC: NEPE 19:39 → UNDOADMIN 21:56 → NEDA 21:56 → INTOOBSV 22:59 → NEDA 22:59 → NEPHCDU 09-30 00:34
PROVIDERS: ADMIT Hospitalist; ATTEND Hospitalist
DX: E11.9 Type 2 diabetes mellitus without complications (principal); R26.81 Unsteadiness on feet; I48.91 Unspecified atrial fibrillation; R53.1 Weakness; I10 Essential (primary) hypertension; E78.5 Hyperlipidemia, unspecified; R29.6 Repeated falls; R05 Cough; I49.9 Cardiac arrhythmia, unspecified; R94.31 Abnormal electrocardiogram [ECG] [EKG]; Z86.73 Personal history of transient ischemic attack (TIA), and cerebral infarction without residual deficits; Z79.01 Long term (current) use of anticoagulants; Z79.899 Other long term (current) drug therapy; Z79.4 Long term (current) use of insulin; E78.00 Pure hypercholesterolemia, unspecified; N20.0 Calculus of kidney
CPT/HCPCS: 51702; 70450; 70544; 70551; 71045; 72125; 73630; 76937; 80048; 80053; 80061; 81001; 82140; 82550; 82607; 82948; 83036; 83690; 83735; 83880; 84484; 85025; 85610; 85730; 93005; 93880; 96361; 96372; 96374; 97110; 97116; 97162; 97167; 99285; G0378; G8987; G8988; J1815; J7030

== ENCOUNTER → 2017-11-10 | Outpatient (CLI) | payer MEDICARE ==
[~2017-11-10] MED LIST changes: +GLIM1TAB PO; -GLIP10TA6 PO; -LEVA250T14 PO; +METO-309 PO; -METO50TA PO; -METR-1 PO
[2017-11-10 13:35] LABS: HEMATOCRIT 32.3 % (35.0-46.0); MEAN CELL VOLUME 69.8 FL (80.0-100.0); MEAN CORPUSCULAR HEMOGLOBIN 21.6 PG (27.0-34.0); MEAN PLATELET VOLUME 8.2 FL (7.0-11.0); PLATELET COUNT 428 TH/MM3 (150-450); RED BLOOD COUNT 4.62 MIL/MM3 (4.00-5.30); RED CELL DISTRIBUTION WIDTH 17.3 % (11.6-17.2); WHITE BLOOD COUNT 7.8 TH/MM3 (4.0-11.0)
[2017-11-10 14:00] LABS: ALBUMIN 3.5 GM/DL (3.4-5.0); AST (GOT) 21 U/L (15-37); BICARBONATE 20.8 MEQ/L (21.0-32.0); BLOOD UREA NITROGEN 13 MG/DL (7-18); CALCIUM 11.2 MG/DL (8.5-10.1); CHLORIDE 108 MEQ/L (98-107); CREATININE 0.84 MG/DL (0.50-1.00); GLOMERULAR FILTRATION RATE 65 ML/MIN (>89); GLUCOSE,FASTING 147 MG/DL (74-99); SODIUM (NA) 141 MEQ/L (136-145)
[2017-11-10 14:01] LABS: ALT (GPT) 26 U/L (10-53); CHOLESTEROL 164 MG/DL (120-200); TRIGLYCERIDES 130 MG/DL (42-150)
[2017-11-10 14:03] LABS: ALKALINE PHOSPHATASE 83 U/L (45-117); CHOLESTEROL/ HDL RATIO 3.42 RATIO; HDL CHOLESTEROL 47.9 MG/DL (40.0-60.0); LDL CHOLESTEROL 90 MG/DL (0-99); LDL CHOLESTEROL DIRECT 107 MG/DL (0-99); TOTAL BILIRUBIN ADULT 0.4 MG/DL (0.2-1.0); TOTAL PROTEIN 7.3 GM/DL (6.4-8.2)
[2017-11-10 17:22] LABS: HEMOGLOBIN A1C 7.5 % (4.3-6.0)
== END ==
LOC: PLAB 09:11
PROVIDERS: ATTEND Internal Medicine
DX: E11.65 Type 2 diabetes mellitus with hyperglycemia (principal); I10 Essential (primary) hypertension
CPT/HCPCS: 36415; 80053; 80061; 83036; 83721; 85027

== ENCOUNTER 2017-12-28 15:42 | Observation (INO) ==
--- NOTE | 2017-12-28 16:48 | ED ---
HPI General Chief complaint: Weakness Stated complaint: SENT BY DR FOR LABS/FALLING/WEAKNESS/CONFUSION Time Seen by Provider: 12/28/17 16:39 Related Data Home Medications Medication Instructions Recorded Confirmed Eliquis 5 mg PO BID 12/28/17 12/28/17 Fosamax PO WEEKLY 12/28/17 Invokana 100 mg PO DAILY 12/28/17 12/28/17 Lipitor 10 mg PO DAILY 12/28/17 12/28/17 glipizide 5 mg PO BID 12/28/17 12/28/17 lisinopril 40 mg PO HS 12/28/17 12/28/17 metformin 1,000 mg PO BID 12/28/17 12/28/17 metoprolol succinate 100 mg PO DAILY 12/28/17 12/28/17 Previous Rx's Medication Instructions Recorded dicyclomine 20 mg PO QID #14 tab 12/28/17 promethazine 25 mg PO Q4-6H PRN #10 tab 12/28/17 Allergies Allergy/AdvReac Type Severity Reaction Status Date / Time No Known Allergies Allergy Verified 12/28/17 16:18 Review of Systems Except as stated in HPI: all other systems reviewed are negative (Patient presents with 2 episodes of diarrhea several days ago following by intermittent nausea and migratory cramping abdominal pain. No more abnormal stools. No blood or mucus in stools. Generally good health no major medical problems) [facility] Medical History Medical History Diabetes (Acute) History of TIA (transient ischemic attack) and stroke (Acute) Hx of diverticulitis of colon (Acute) Hyperlipidemia (Acute) Surgical History Surgical History Hx of colonoscopy (Acute) Family History Family History Other HTN (hypertension) Social History Social History Substance History: No History of Abuse Second Hand Smoke Exposure: No Smoking Status: Never smoker How Often Do You Have a Drink Containing Alcohol: Never Recent Travel in [facility] within the Last 8 Weeks: No Recent Out of Country Travel within the Last 8 Weeks: No Immunization History Tetanus Immunization: Unsure Hx Influenza Vaccine This Season: No Exam Narrative Exam Narrative: GENERAL: Alert and oriented with moderate confusion SKIN: Focused skin assessment warm/dry. Multiple contusions with ecchymosis secondary to frequent falls HEAD: Atraumatic. Normocephalic. EYES: Pupils equal and round. No scleral icterus. No injection or drainage. ENT: No nasal bleeding or discharge. Mucous membranes pink and moist. NECK: Trachea midline. No JVD. CARDIOVASCULAR: Irregular rhythm. No murmur appreciated. RESPIRATORY: No accessory muscle use. Clear to auscultation. Breath sounds equal bilaterally. Crepitant rales that cleared with deep inspiration GASTROINTESTINAL: Abdomen soft, non-tender, nondistended. Hepatic and splenic margins not palpable. MUSCULOSKELETAL: No obvious deformities. No clubbing. No cyanosis. No edema. NEUROLOGICAL: Awake and alert. No obvious cranial nerve deficits. Motor grossly within normal limits. Normal speech. PSYCHIATRIC: Appropriate mood and affect; insight and judgment normal. Course Initial Documented Vital Signs Temperature 97.7 F 12/28/17 15:49 Pulse Rate 102 H 12/28/17 15:49 Respiratory Rate 16 12/28/17 15:49 Blood Pressure 138/73 12/28/17 15:49 Pulse Oximetry 98 12/28/17 15:49 Last Documented Vital Signs Temperature 97.2 F L 12/31/17 16:00 Pulse Rate 104 H 12/31/17 16:00 Respiratory Rate 20 12/31/17 16:00 Blood Pressure 124/89 12/31/17 16:00 Pulse Oximetry 93 L 12/31/17 16:00 Critical Care Time Critical Care Time: No Medical Decision Making Differential Diagnosis Differential Diagnosis: Dementia; syncope; near syncope; CVA Medical Records Medical records reviewed: Yes I reviewed the patient's medical records. Lab Data Lab results reviewed: Yes I reviewed the patient's lab results. Result diagrams: 12/31/17 05:48 12/31/17 05:48 Lab Results 12/28/17 12/28/17 12/28/17 Range/Units 17:05 17:05 20:35 CBC w Diff Slide review pending WBC 6.8 (4.0-11.0) th/mm3 RBC 5.02 (4.00-5.30) mil/mm3 Hgb 10.5 L (11.6-15.3) gm/dL Hct 34.9 L (35.0-46.0) % MCV 69.5 L (80.0-100.0) fL MCH 20.9 L (27.0-34.0) pg MCHC 30.1 L (32.0-36.0) % RDW 17.1 (11.6-17.2) % Plt Count 425 (150-450) th/mm3 MPV 7.8 (7.0-11.0) fL Neut % (Auto) 71.2 H (16.0-70.0) % Lymph % (Auto) 17.0 (9.0-44.0) % Jefferson % (Auto) 7.5 (0.0-8.0) % Eos % (Auto) 3.8 (0.0-4.0) % Baso % (Auto) 0.5 (0.0-2.0) % Neut # (Auto) 4.8 (1.8-7.7) th/mm3 Lymph # (Auto) 1.2 (1.0-4.8) th/mm3 Jefferson # (Auto) 0.5 (0.0-0.9) th/mm3 Eos # (Auto) 0.3 (0.0-0.4) th/mm3 Baso # (Auto) 0.0 (0.0-0.2) th/mm3 WBC Differential . Diff Scan Auto diff confirmed Differential Comment . Platelet Estimate High H (Normal) Platelet Morphology Normal (Normal) Ovalocytes 1+ H (None) Sodium 139 (136-145) meq/L Potassium 3.8 (3.5-5.1) meq/L Chloride 106 (98-107) meq/L Carbon Dioxide 24.4 (21.0-32.0) meq/L Anion Gap 9 (5-15) meq/L BUN 14 (7-18) mg/dL Creatinine 0.89 (0.50-1.00) mg/dL Estimated GFR 61 L (>89) mL/min POC Glucose 89 (68-110) mg/dl Random Glucose 102 (74-106) mg/dL Calcium 10.9 H (8.5-10.1) mg/dL Phosphorus (2.5-4.9) mg/dL Magnesium (1.5-2.5) mg/dL Iron (50-170) mcg/dL TIBC (250-450) mcg/dL % Saturation (20-50) % Total Bilirubin 0.5 (0.2-1.0) mg/dL AST 19 (15-37) U/L ALT 17 (10-53) U/L Alkaline Phosphatase 78 (45-117) U/L Total Protein 7.4 (6.4-8.2) g/dL Albumin 3.5 (3.4-5.0) g/dL Vitamin B12 (193-986) pg/mL Vitamin D 25-Hydroxy (30-100) ng/mL TSH (0.358-3.740) uIU/mL PTH Intact (12.4-76.8) pg/mL 12/29/17 12/29/17 12/29/17 Range/Units 06:15 06:15 06:15 CBC w Diff Slide review pending WBC 6.7 (4.0-11.0) th/mm3 RBC 4.46 (4.00-5.30) mil/mm3 Hgb 9.9 L (11.6-15.3) gm/dL Hct 30.8 L (35.0-46.0) % MCV 69.1 L (80.0-100.0) fL MCH 22.2 L (27.0-34.0) pg MCHC 32.2 (32.0-36.0) % RDW 17.1 (11.6-17.2) % Plt Count 339 (150-450) th/mm3 MPV 8.5 (7.0-11.0) fL Neut % (Auto) 64.5 (16.0-70.0) % Lymph % (Auto) 20.8 (9.0-44.0) % Jefferson % (Auto) 9.2 H (0.0-8.0) % Eos % (Auto) 4.6 H (0.0-4.0) % Baso % (Auto) 0.9 (0.0-2.0) % Neut # (Auto) 4.3 (1.8-7.7) th/mm3 Lymph # (Auto) 1.4 (1.0-4.8) th/mm3 Jefferson # (Auto) 0.6 (0.0-0.9) th/mm3 Eos # (Auto) 0.3 (0.0-0.4) th/mm3 Baso # (Auto) 0.1 (0.0-0.2) th/mm3 WBC Differential . Diff Scan Auto diff confirmed Differential Comment . Platelet Estimate (Normal) Platelet Morphology (Normal) Ovalocytes (None) Sodium 140 (136-145) meq/L Potassium 3.9 (3.5-5.1) meq/L Chloride 108 H (98-107) meq/L Carbon Dioxide 22.7 (21.0-32.0) meq/L Anion Gap 9 (5-15) meq/L BUN 13 (7-18) mg/dL Creatinine 0.60 (0.50-1.00) mg/dL Estimated GFR Greater than 89 (>89) mL/min POC Glucose (68-110) mg/dl Random Glucose 83 (74-106) mg/dL Calcium 10.2 H (8.5-10.1) mg/dL Phosphorus (2.5-4.9) mg/dL Magnesium (1.5-2.5) mg/dL Iron (50-170) mcg/dL TIBC (250-450) mcg/dL % Saturation (20-50) % Total Bilirubin 0.5 (0.2-1.0) mg/dL AST 19 (15-37) U/L ALT 18 (10-53) U/L Alkaline Phosphatase 69 (45-117) U/L Total Protein 6.9 (6.4-8.2) g/dL Albumin 3.1 L (3.4-5.0) g/dL Vitamin B12 (193-986) pg/mL Vitamin D 25-Hydroxy (30-100) ng/mL TSH 1.720 (0.358-3.740) uIU/mL PTH Intact (12.4-76.8) pg/mL 12/29/17 12/29/17 12/29/17 Range/Units 07:56 11:47 12:10 CBC w Diff WBC (4.0-11.0) th/mm3 RBC (4.00-5.30) mil/mm3 Hgb (11.6-15.3) gm/dL Hct (35.0-46.0) % MCV (80.0-100.0) fL MCH (27.0-34.0) pg MCHC (32.0-36.0) % RDW (11.6-17.2) % Plt Count (150-450) th/mm3 MPV (7.0-11.0) fL Neut % (Auto) (16.0-70.0) % Lymph % (Auto) (9.0-44.0) % Jefferson % (Auto) (0.0-8.0) % Eos % (Auto) (0.0-4.0) % Baso % (Auto) (0.0-2.0) % Neut # (Auto) (1.8-7.7) th/mm3 Lymph # (Auto) (1.0-4.8) th/mm3 Jefferson # (Auto) (0.0-0.9) th/mm3 Eos # (Auto) (0.0-0.4) th/mm3 Baso # (Auto) (0.0-0.2) th/mm3 WBC Differential Diff Scan Differential Comment Platelet Estimate (Normal) Platelet Morphology (Normal) Ovalocytes (None) Sodium (136-145) meq/L Potassium (3.5-5.1) meq/L Chloride (98-107) meq/L Carbon Dioxide (21.0-32.0) meq/L Anion Gap (5-15) meq/L BUN (7-18) mg/dL Creatinine (0.50-1.00) mg/dL Estimated GFR (>89) mL/min POC Glucose 102 118 H (68-110) mg/dl Random Glucose (74-106) mg/dL Calcium (8.5-10.1) mg/dL Phosphorus (2.5-4.9) mg/dL Magnesium (1.5-2.5) mg/dL Iron (50-170) mcg/dL TIBC (250-450) mcg/dL % Saturation (20-50) % Total Bilirubin (0.2-1.0) mg/dL AST (15-37) U/L ALT (10-53) U/L Alkaline Phosphatase (45-117) U/L Total Protein (6.4-8.2) g/dL Albumin (3.4-5.0) g/dL Vitamin B12 (193-986) pg/mL Vitamin D 25-Hydroxy (30-100) ng/mL TSH (0.358-3.740) uIU/mL PTH Intact Less than 6.3 L (12.4-76.8) pg/mL 07/31/18 07/31/18 07/31/18 Range/Units 16:50 17:07 21:33 CBC w Diff WBC (4.0-11.0) th/mm3 RBC (4.00-5.30) mil/mm3 Hgb (11.6-15.3) gm/dL Hct (35.0-46.0) % MCV (80.0-100.0) fL MCH (27.0-34.0) pg MCHC (32.0-36.0) % RDW (11.6-17.2) % Plt Count (150-450) th/mm3 MPV (7.0-11.0) fL Neut % (Auto) (16.0-70.0) % Lymph % (Auto) (9.0-44.0) % Jefferson % (Auto) (0.0-8.0) % Eos % (Auto) (0.0-4.0) % Baso % (Auto) (0.0-2.0) % Neut # (Auto) (1.8-7.7) th/mm3 Lymph # (Auto) (1.0-4.8) th/mm3 Jefferson # (Auto) (0.0-0.9) th/mm3 Eos # (Auto) (0.0-0.4) th/mm3 Baso # (Auto) (0.0-0.2) th/mm3 WBC Differential Diff Scan Differential Comment Platelet Estimate (Normal) Platelet Morphology (Normal) Ovalocytes (None) Sodium (136-145) meq/L Potassium (3.5-5.1) meq/L Chloride (98-107) meq/L Carbon Dioxide (21.0-32.0) meq/L Anion Gap (5-15) meq/L BUN (7-18) mg/dL Creatinine (0.50-1.00) mg/dL Estimated GFR (>89) mL/min POC Glucose 93 90 (68-110) mg/dl Random Glucose (74-106) mg/dL Calcium (8.5-10.1) mg/dL Phosphorus (2.5-4.9) mg/dL Magnesium (1.5-2.5) mg/dL Iron 20 L (50-170) mcg/dL TIBC 423 (250-450) mcg/dL % Saturation 4.7 L (20-50) % Total Bilirubin (0.2-1.0) mg/dL AST (15-37) U/L ALT (10-53) U/L Alkaline Phosphatase (45-117) U/L Total Protein (6.4-8.2) g/dL Albumin (3.4-5.0) g/dL Vitamin B12 573 (193-986) pg/mL Vitamin D 25-Hydroxy (30-100) ng/mL TSH (0.358-3.740) uIU/mL PTH Intact (12.4-76.8) pg/mL 12/30/17 12/30/17 12/30/17 Range/Units 07:36 08:25 08:25 CBC w Diff WBC (4.0-11.0) th/mm3 RBC (4.00-5.30) mil/mm3 Hgb (11.6-15.3) gm/dL Hct (35.0-46.0) % MCV (80.0-100.0) fL MCH (27.0-34.0) pg MCHC (32.0-36.0) % RDW (11.6-17.2) % Plt Count (150-450) th/mm3 MPV (7.0-11.0) fL Neut % (Auto) (16.0-70.0) % Lymph % (Auto) (9.0-44.0) % Jefferson % (Auto) (0.0-8.0) % Eos % (Auto) (0.0-4.0) % Baso % (Auto) (0.0-2.0) % Neut # (Auto) (1.8-7.7) th/mm3 Lymph # (Auto) (1.0-4.8) th/mm3 Jefferson # (Auto) (0.0-0.9) th/mm3 Eos # (Auto) (0.0-0.4) th/mm3 Baso # (Auto) (0.0-0.2) th/mm3 WBC Differential Diff Scan Differential Comment Platelet Estimate (Normal) Platelet Morphology (Normal) Ovalocytes (None) Sodium 139 (136-145) meq/L Potassium 3.4 L (3.5-5.1) meq/L Chloride 106 (98-107) meq/L Carbon Dioxide 25.4 (21.0-32.0) meq/L Anion Gap 8 (5-15) meq/L BUN 8 (7-18) mg/dL Creatinine 0.59 (0.50-1.00) mg/dL Estimated GFR Greater than 89 (>89) mL/min POC Glucose 79 (68-110) mg/dl Random Glucose 97 (74-106) mg/dL Calcium 10.7 H (8.5-10.1) mg/dL Phosphorus (2.5-4.9) mg/dL Magnesium (1.5-2.5) mg/dL Iron (50-170) mcg/dL TIBC (250-450) mcg/dL % Saturation (20-50) % Total Bilirubin (0.2-1.0) mg/dL AST (15-37) U/L ALT (10-53) U/L Alkaline Phosphatase (45-117) U/L Total Protein (6.4-8.2) g/dL Albumin (3.4-5.0) g/dL Vitamin B12 (193-986) pg/mL Vitamin D 25-Hydroxy 16.2 L (30-100) ng/mL TSH (0.358-3.740) uIU/mL PTH Intact (12.4-76.8) pg/mL 12/30/17 12/30/17 12/31/17 Range/Units 11:54 22:15 05:48 CBC w Diff WBC 6.5 (4.0-11.0) th/mm3 RBC 5.16 (4.00-5.30) mil/mm3 Hgb 10.8 L (11.6-15.3) gm/dL Hct 36.0 (35.0-46.0) % MCV 69.7 L (80.0-100.0) fL MCH 20.9 L (27.0-34.0) pg MCHC 30.0 L (32.0-36.0) % RDW 17.0 (11.6-17.2) % Plt Count 351 (150-450) th/mm3 MPV 8.0 (7.0-11.0) fL Neut % (Auto) (16.0-70.0) % Lymph % (Auto) (9.0-44.0) % Jefferson % (Auto) (0.0-8.0) % Eos % (Auto) (0.0-4.0) % Baso % (Auto) (0.0-2.0) % Neut # (Auto) (1.8-7.7) th/mm3 Lymph # (Auto) (1.0-4.8) th/mm3 Jefferson # (Auto) (0.0-0.9) th/mm3 Eos # (Auto) (0.0-0.4) th/mm3 Baso # (Auto) (0.0-0.2) th/mm3 WBC Differential Diff Scan Differential Comment Platelet Estimate (Normal) Platelet Morphology (Normal) Ovalocytes (None) Sodium (136-145) meq/L Potassium (3.5-5.1) meq/L Chloride (98-107) meq/L Carbon Dioxide (21.0-32.0) meq/L Anion Gap (5-15) meq/L BUN (7-18) mg/dL Creatinine (0.50-1.00) mg/dL Estimated GFR (>89) mL/min POC Glucose 122 H 111 H (68-110) mg/dl Random Glucose (74-106) mg/dL Calcium (8.5-10.1) mg/dL Phosphorus (2.5-4.9) mg/dL Magnesium (1.5-2.5) mg/dL Iron (50-170) mcg/dL TIBC (250-450) mcg/dL % Saturation (20-50) % Total Bilirubin (0.2-1.0) mg/dL AST (15-37) U/L ALT (10-53) U/L Alkaline Phosphatase (45-117) U/L Total Protein (6.4-8.2) g/dL Albumin (3.4-5.0) g/dL Vitamin B12 (193-986) pg/mL Vitamin D 25-Hydroxy (30-100) ng/mL TSH (0.358-3.740) uIU/mL PTH Intact (12.4-76.8) pg/mL 12/31/17 12/31/17 12/31/17 Range/Units 05:48 05:48 07:49 CBC w Diff WBC (4.0-11.0) th/mm3 RBC (4.00-5.30) mil/mm3 Hgb (11.6-15.3) gm/dL Hct (35.0-46.0) % MCV (80.0-100.0) fL MCH (27.0-34.0) pg MCHC (32.0-36.0) % RDW (11.6-17.2) % Plt Count (150-450) th/mm3 MPV (7.0-11.0) fL Neut % (Auto) (16.0-70.0) % Lymph % (Auto) (9.0-44.0) % Jefferson % (Auto) (0.0-8.0) % Eos % (Auto) (0.0-4.0) % Baso % (Auto) (0.0-2.0) % Neut # (Auto) (1.8-7.7) th/mm3 Lymph # (Auto) (1.0-4.8) th/mm3 Jefferson # (Auto) (0.0-0.9) th/mm3 Eos # (Auto) (0.0-0.4) th/mm3 Baso # (Auto) (0.0-0.2) th/mm3 WBC Differential Diff Scan Differential Comment Platelet Estimate (Normal) Platelet Morphology (Normal) Ovalocytes (None) Sodium 140 (136-145) meq/L Potassium 3.4 L (3.5-5.1) meq/L Chloride 107 (98-107) meq/L Carbon Dioxide 24.7 (21.0-32.0) meq/L Anion Gap 8 (5-15) meq/L BUN 9 (7-18) mg/dL Creatinine 0.61 (0.50-1.00) mg/dL Estimated GFR Greater than 89 (>89) mL/min POC Glucose 111 H (68-110) mg/dl Random Glucose 118 H (74-106) mg/dL Calcium 11.0 H (8.5-10.1) mg/dL Phosphorus (2.5-4.9) mg/dL Magnesium 2.0 (1.5-2.5) mg/dL Iron (50-170) mcg/dL TIBC (250-450) mcg/dL % Saturation (20-50) % Total Bilirubin (0.2-1.0) mg/dL AST (15-37) U/L ALT (10-53) U/L Alkaline Phosphatase (45-117) U/L Total Protein (6.4-8.2) g/dL Albumin (3.4-5.0) g/dL Vitamin B12 (193-986) pg/mL Vitamin D 25-Hydroxy (30-100) ng/mL TSH (0.358-3.740) uIU/mL PTH Intact (12.4-76.8) pg/mL 12/31/17 12/31/17 12/31/17 Range/Units 10:56 14:27 16:39 CBC w Diff WBC (4.0-11.0) th/mm3 RBC (4.00-5.30) mil/mm3 Hgb (11.6-15.3) gm/dL Hct (35.0-46.0) % MCV (80.0-100.0) fL MCH (27.0-34.0) pg MCHC (32.0-36.0) % RDW (11.6-17.2) % Plt Count (150-450) th/mm3 MPV (7.0-11.0) fL Neut % (Auto) (16.0-70.0) % Lymph % (Auto) (9.0-44.0) % Jefferson % (Auto) (0.0-8.0) % Eos % (Auto) (0.0-4.0) % Baso % (Auto) (0.0-2.0) % Neut # (Auto) (1.8-7.7) th/mm3 Lymph # (Auto) (1.0-4.8) th/mm3 Jefferson # (Auto) (0.0-0.9) th/mm3 Eos # (Auto) (0.0-0.4) th/mm3 Baso # (Auto) (0.0-0.2) th/mm3 WBC Differential Diff Scan Differential Comment Platelet Estimate (Normal) Platelet Morphology (Normal) Ovalocytes (None) Sodium (136-145) meq/L Potassium (3.5-5.1) meq/L Chloride (98-107) meq/L Carbon Dioxide (21.0-32.0) meq/L Anion Gap (5-15) meq/L BUN (7-18) mg/dL Creatinine (0.50-1.00) mg/dL Estimated GFR (>89) mL/min POC Glucose 117 H 147 H (68-110) mg/dl Random Glucose (74-106) mg/dL Calcium (8.5-10.1) mg/dL Phosphorus 3.7 (2.5-4.9) mg/dL Magnesium (1.5-2.5) mg/dL Iron (50-170) mcg/dL TIBC (250-450) mcg/dL % Saturation (20-50) % Total Bilirubin (0.2-1.0) mg/dL AST (15-37) U/L ALT (10-53) U/L Alkaline Phosphatase (45-117) U/L Total Protein (6.4-8.2) g/dL Albumin (3.4-5.0) g/dL Vitamin B12 (193-986) pg/mL Vitamin D 25-Hydroxy (30-100) ng/mL TSH (0.358-3.740) uIU/mL PTH Intact (12.4-76.8) pg/mL Discharge Plan Discharge Disposition Patient Disposition: 30 Still Patient Discharge Condition Condition: Stable Discharge Details Anticipated Discharge Date: 01/01/18 Diagnosis: Atrial fibrillation, transient, Weakness Physicians Team ED Provider: Matthew Peguero Primary Care Provider: Naheed Green Attending Provider: Kathryn Puri Other Providers: Girish Arevalo Status ED Status: Left Department Discharge Information Discharge Date/Time: 12/28/17 21:59
[2017-12-28 17:08] LABS: Baso % (Auto) 0.5 % (0.0-2.0); Eos # (Auto) 0.3 th/mm3 (0.0-0.4); Eos % (Auto) 3.8 % (0.0-4.0); Hematocrit 34.9 % (35.0-46.0); Hemoglobin 10.5 gm/dL (11.6-15.3); Lymph # (Auto) 1.2 th/mm3 (1.0-4.8); Mean Corpuscular Hemoglobin 20.9 pg (27.0-34.0); Mean Corpuscular Volume 69.5 fL (80.0-100.0); Mean Platelet Volume 7.8 fL (7.0-11.0); Mono # (Auto) 0.5 th/mm3 (0.0-0.9); Mono % (Auto) 7.5 % (0.0-8.0); Neut # (Auto) 4.8 th/mm3 (1.8-7.7); Neut % (Auto) 71.2 % (16.0-70.0); Platelet Count 425 th/mm3 (150-450); Red Blood Count 5.02 mil/mm3 (4.00-5.30); Red Cell Distribution Width 17.1 % (11.6-17.2); White Blood Count 6.8 th/mm3 (4.0-11.0)
[2017-12-28 17:19] LABS: Chloride 106 meq/L (98-107); Potassium 3.8 meq/L (3.5-5.1); Sodium 139 meq/L (136-145)
[2017-12-28 17:20] LABS: Mean Corpuscular HGB Conc 30.1 % (32.0-36.0)
[2017-12-28 17:22] LABS: Calcium 10.9 mg/dL (8.5-10.1)
[2017-12-28 17:23] LABS: Albumin 3.5 g/dL (3.4-5.0); Anion Gap 9 meq/L (5-15); Blood Urea Nitrogen 14 mg/dL (7-18); Carbon Dioxide 24.4 meq/L (21.0-32.0); Glucose,Random 102 mg/dL (74-106)
[2017-12-28 17:26] LABS: Alanine Aminotransferase 17 U/L (10-53); Aspartate Aminotransferase 19 U/L (15-37)
[2017-12-28 17:27] LABS: Glomerular Filtration Rate 61 mL/min (>89)
[2017-12-28 17:28] LABS: Total Protein 7.4 g/dL (6.4-8.2)
[2017-12-28 17:29] LABS: Alkaline Phosphatase 78 U/L (45-117)
[2017-12-28 17:48] LABS: Ovalocytes 1+
[2017-12-28 17:49] LABS: Platelet Morphology Normal (Normal)
[2017-12-28] MEDS ORDERED: Temazepam 15 MG Capsule PO PRN (19:56)
[2017-12-28] MEDS ORDERED: Bisacodyl 10 MG Supp RECTAL PRN (19:56)
[2017-12-28] MEDS ORDERED: Dextrose 50% in Water 50 ML Vial IV.PUSH PRN (20:00)
[2017-12-28] MEDS: Insulin NovoLOG Aspart Correctional Sugar Inj SQ SCH (20:43)
[2017-12-28] MEDS: Senna/Docusate Sodium 8.6/50 MG Tablet PO SCH (22:30)
[2017-12-29 06:49] LABS: Baso # (Auto) 0.1 th/mm3 (0.0-0.2); Baso % (Auto) 0.9 % (0.0-2.0); Eos # (Auto) 0.3 th/mm3 (0.0-0.4); Eos % (Auto) 4.6 % (0.0-4.0); Hematocrit 30.8 % (35.0-46.0); Hemoglobin 9.9 gm/dL (11.6-15.3); Lymph # (Auto) 1.4 th/mm3 (1.0-4.8); Lymph % (Auto) 20.8 % (9.0-44.0); Mean Corpuscular HGB Conc 32.2 % (32.0-36.0); Mean Corpuscular Hemoglobin 22.2 pg (27.0-34.0); Mean Corpuscular Volume 69.1 fL (80.0-100.0); Mean Platelet Volume 8.5 fL (7.0-11.0); Mono # (Auto) 0.6 th/mm3 (0.0-0.9); Mono % (Auto) 9.2 % (0.0-8.0); Neut # (Auto) 4.3 th/mm3 (1.8-7.7); Neut % (Auto) 64.5 % (16.0-70.0); Platelet Count 339 th/mm3 (150-450); Red Blood Count 4.46 mil/mm3 (4.00-5.30); Red Cell Distribution Width 17.1 % (11.6-17.2); White Blood Count 6.7 th/mm3 (4.0-11.0)
[2017-12-29 06:51] LABS: Chloride 108 meq/L (98-107); Potassium 3.9 meq/L (3.5-5.1); Sodium 140 meq/L (136-145)
[2017-12-29 06:55] LABS: Albumin 3.1 g/dL (3.4-5.0); Anion Gap 9 meq/L (5-15); Blood Urea Nitrogen 13 mg/dL (7-18); Calcium 10.2 mg/dL (8.5-10.1); Carbon Dioxide 22.7 meq/L (21.0-32.0); Glucose,Random 83 mg/dL (74-106)
[2017-12-29 06:58] LABS: Alanine Aminotransferase 18 U/L (10-53); Aspartate Aminotransferase 19 U/L (15-37)
[2017-12-29 06:59] LABS: Glomerular Filtration Rate Greater Than 89 mL/min (>89)
[2017-12-29 07:00] LABS: Total Protein 6.9 g/dL (6.4-8.2)
[2017-12-29 07:01] LABS: Alkaline Phosphatase 69 U/L (45-117)
[2017-12-29] MEDS: glipiZIDE 5 MG Tablet PO SCH ×2 (08:54→17:46)
[2017-12-29] MEDS: Senna/Docusate Sodium 8.6/50 MG Tablet PO SCH ×2 (08:54→21:39)
[2017-12-29] MEDS: Insulin NovoLOG Aspart Correctional Sugar Inj SQ SCH ×4 (08:56→23:30)
[2017-12-29] MEDS ORDERED: INVOKANA 100 MG PO SCH (12:30)
--- NOTE | 2017-12-29 13:50 | P.HPIM ---
History of Present Illness Primary Care Physician: Naheed Green MD Chief Complaint: Weakness and frequent falls History of Present Illness: Patient is an 82-year-old female with a history of atrial fibrillation has come to the hospital complaining of increased falls and weakness over the last several days her and her daughter and had to help her off the floor several times. Finally she came to the emergency room. She notes no fevers or chills or urinary frequency. She does have evidence of hypercalcemia on exam as well as multiple bruises. She takes calcium at home. She also has a history of atrial fibrillation and this appears to be very rate controlled. 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 She has been in a rehab facility and has been home with home health for about a month. Patient is recommended to be observed in the hospital due to weakness and frequent falls. - Diagnosis (1) Hypercalcemia (2) Atrial fibrillation, transient (3) Weakness Review of Systems All other systems reviewed negative except as stated in HPI [facility] - History History Provided By: Patient, Family Member - Medical History Medical History: Medical History (Last Reviewed 12/29/17 @ 13:47 by Kathryn Puri MD) Diabetes History of TIA (transient ischemic attack) and stroke Hx of diverticulitis of colon Hyperlipidemia - Surgical History Surgical History: Surgical History (Last Reviewed 12/29/17 @ 13:47 by Kathryn Puri MD) Hx of colonoscopy - Family History Family History: Family History (Last Updated 12/29/17 @ 13:48 by Kathryn Puri MD) Other HTN (hypertension) - Tobacco History Second Hand Smoke Exposure: No Tobacco Use In Past 30 Days: No Smoking Status: Never smoker - Alcohol History How Often Do You Have a Drink Containing Alcohol: Never - Substance Use History Substance History: No History of Abuse - Travel History Recent Travel in the [place] Within the Last 8 Weeks: No Recent Travel Out of the Country Within the Last 8 Weeks: No - Immunization History Tetanus Immunization: Unsure Hx Influenza Vaccine This Season: No Medications and Allergies Active Medications: Active Medications Al Hydroxide/Mg Hydroxide (Milk Of Faizan Liq) 30 ml PO Q12H PRN PRN Reason: Mild Constipation Apixaban (Eliquis) 5 mg PO BID COUNT INCLUDES THE [facility] Last Admin: 12/29/17 08:53 Dose: 5 mg Atorvastatin Calcium (Lipitor) 10 mg PO DAILY COUNT INCLUDES THE [facility] Last Admin: 12/29/17 08:54 Dose: 10 mg Bisacodyl (Dulcolax Supp) 10 mg RECTAL DAILY PRN PRN Reason: SEVERE CONSITIPATION Dextrose (D50w Vial) 50 ml IV.PUSH UNSCH PRN PRN Reason: PER HYPOGLYCEMIA PROTOCOL Glipizide (Glucotrol) 5 mg PO BIDAC COUNT INCLUDES THE [facility] Last Admin: 12/29/17 08:54 Dose: 5 mg Glucagon (Glucagon Inj) 1 mg OTHER PRN PRN PRN Reason: for Hypoglycemia Protocol Insulin Aspart (Novolog Insulin Correctional Sugar Inj) 0 unit SQ [facility]; Protocol Last Admin: 12/29/17 11:55 Dose: Not Given Lactulose (Lactulose Liq) 30 ml PO DAILY PRN PRN Reason: SEVERE CONSITIPATION Lisinopril (Prinivil) 40 mg PO HS COUNT INCLUDES THE [facility] Metoprolol Succinate (Toprol Xl) 100 mg PO DAILY COUNT INCLUDES THE [facility] Last Admin: 12/29/17 08:54 Dose: 100 mg Patient Own: ( (Invokana 100 Mg)) 0 each PO DAILY@0800 COUNT INCLUDES THE [facility] Senna/Docusate Sodium (Marlene-Colace) 1 tab PO BID COUNT INCLUDES THE [facility] Last Admin: 12/29/17 08:54 Dose: Not Given Sennosides (Senokot) 17.2 mg PO Q12H PRN PRN Reason: Moderate Constipation Temazepam (Restoril) 15 mg PO HS PRN PRN Reason: INSOMNIA Allergies Allergy/AdvReac Type Severity Reaction Status Date / Time No Known Allergies Allergy Verified 12/28/17 16:18 Home Medications Medication Instructions Recorded Confirmed Type Eliquis 5 mg PO BID 12/28/17 12/28/17 History Fosamax PO WEEKLY 12/28/17 History Invokana 100 mg PO DAILY 12/28/17 12/28/17 History Lipitor 10 mg PO DAILY 12/28/17 12/28/17 History glipizide 5 mg PO BID 12/28/17 12/28/17 History lisinopril 40 mg PO HS 12/28/17 12/28/17 History metformin 1,000 mg PO BID 12/28/17 12/28/17 History metoprolol succinate 100 mg PO DAILY 12/28/17 12/28/17 History Exam Vital signs: Vital Signs 12/28/17 15:49 12/28/17 16:01 12/28/17 17:30 Temperature 97.7 F Pulse Rate 102 H 83 97 H Respiratory Rate 16 16 16 Blood Pressure 138/73 134/100 H 114/68 Pulse Oximetry 98 95 96 12/28/17 18:30 12/28/17 20:28 12/29/17 00:00 Temperature 98.2 F Pulse Rate 86 85 101 H Respiratory Rate 16 16 Blood Pressure 153/94 H 124/75 Pulse Oximetry 96 98 12/29/17 00:42 12/29/17 04:00 12/29/17 08:00 Temperature 97.6 F 99.1 F 96.5 F L Pulse Rate 80 103 H 109 H Respiratory Rate 19 22 19 Blood Pressure 146/83 H 132/87 155/87 H Pulse Oximetry 95 95 94 L Intake & Output 12/28/17 12/29/17 12/29/17 18:59 06:59 18:59 Intake Total 240 / 240 Output Total 1100 / 1100 Balance -860 / -860 Weight 74 kg 74 kg Intake: Oral 240 / 240 Output: Urine 1100 / 1100 Other: Date of Last Bowel Movement 12/28/17 Weight On Admission 74 kg Narrative: GENERAL: Well-nourished, well-developed patient. SKIN: Several ecchymoses HEAD: Normocephalic. EYES: No scleral icterus. No injection or drainage. NECK: Supple, trachea midline. No JVD or lymphadenopathy. CARDIOVASCULAR: Regular rate and rhythm without murmurs, gallops, or rubs. RESPIRATORY: Breath sounds equal bilaterally. No accessory muscle use. GASTROINTESTINAL: Abdomen soft, non-tender, nondistended. MUSCULOSKELETAL: No cyanosis, or edema. BACK: Nontender without obvious deformity. No CVA tenderness. NEUROLOGICAL: Awake and alert. Cranial nerves II through XII intact. Motor and sensory grossly within normal limits. Five out of 5 muscle strength in all muscle groups. Normal speech. Results - Labs CBC & Chem 7: 12/29/17 06:15 12/29/17 06:15 Labs: Short CBC 12/28/17 12/29/17 Range/Units 17:05 06:15 WBC 6.8 6.7 (4.0-11.0) th/mm3 Hgb 10.5 L 9.9 L (11.6-15.3) gm/dL Hct 34.9 L 30.8 L (35.0-46.0) % Plt Count 425 339 (150-450) th/mm3 BMP 12/28/17 12/29/17 17:05 06:15 Sodium 139 140 Potassium 3.8 3.9 Chloride 106 108 H Carbon Dioxide 24.4 22.7 BUN 14 13 Creatinine 0.89 0.60 Calcium 10.9 H 10.2 H Liver Function 12/28/17 12/29/17 Range/Units 17:05 06:15 Total Bilirubin 0.5 0.5 (0.2-1.0) mg/dL AST 19 19 (15-37) U/L ALT 17 18 (10-53) U/L Alkaline Phosphatase 78 69 (45-117) U/L Albumin 3.5 3.1 L (3.4-5.0) g/dL Caprini VTE Risk Assessment Caprini VTE Risk Assessment: Moderate/High Risk (score >= 2) Caprini Risk Assessment Model: Point Value = 1 Point Value = 2 Point Value = 3 Point Value = 5 Age 41-60 Minor surgery BMI > 25 kg/m2 Swollen legs Varicose veins or History of unexplained or recurrent spontaneous Oral contraceptives or hormone replacement Sepsis (< 1 month) Serious lung disease, including pneumonia (< 1 month) Abnormal pulmonary function Acute myocardial infarction Congestive heart failure (< 1 month) History of inflammatory bowel disease Medical patient at bed rest Age 61-74 Arthroscopic surgery Major open surgery (> 45 min) Laparoscopic surgery (> 45 min) Malignancy Confined to bed (> 72 hours) Immobilizing plaster cast Central venous access Age >= 75 History of VTE Family history of VTE Factor V Leiden Prothrombin [id number] Lupus anticoagulant Anticardiolipin antibodies Elevated serum homocysteine Heparin-induced thrombocytopenia Other congenital or acquired thrombophilia Stroke (< 1 month) Elective arthroplasty Hip, pelvis, or leg fracture Acute spinal cord injury (< 1 month) Prophylaxis Regimen: Total Risk Factor Score Risk Level Prophylaxis Regimen 0-1 Low Early ambulation 2 Moderate Order ONE of the following: *Sequential Compression Device (SCD) *Heparin 5000 units SQ BID 3-4 Higher Order ONE of the following medications: *Heparin 5000 units SQ TID *Enoxaparin/Lovenox 40 mg SQ daily (WT < 150 kg, CrCl > 30 mL/min) *Enoxaparin/Lovenox 30 mg SQ daily (WT < 150 kg, CrCl > 10-29 mL/min) *Enoxaparin/Lovenox 30 mg SQ BID (WT < 150 kg, CrCl > 30 mL/min) AND/OR *Sequential Compression Device (SCD) 5 or more Highest Order ONE of the following medications: *Heparin 5000 units SQ TID (Preferred with Epidurals) *Enoxaparin/Lovenox 40 mg SQ daily (WT < 150 kg, CrCl > 30 mL/min) *Enoxaparin/Lovenox 30 mg SQ daily (WT < 150 kg, CrCl > 10-29 mL/min) *Enoxaparin/Lovenox 30 mg SQ BID (WT < 150 kg, CrCl > 30 mL/min) AND *Sequential Compression Device (SCD) Assessment and Plan - Assessment (1) Hypercalcemia Code(s): E83.52 - Hypercalcemia Status: Acute Plan: lasix, ivf follow trend PTH pending Continue with patient education for home medication (2) Atrial fibrillation, transient Code(s): I48.91 - Unspecified atrial fibrillation Status: Acute Plan: chronic, cont eliquis (3) Weakness Code(s): R53.1 - Weakness Status: Acute Plan: unclear but may be multifactorial will follow up calcium Continue with PT assessment Previously in a rehab facility and currently with home health care we may need to resume the services line follow-up anemia H&P: Quality - VTE Deep Vein Thrombosis/Pulmonary Embolism Present on Admission: No
--- NOTE | 2017-12-29 15:36 | ECG ---
Date Performed: 12/28/2017 Time Performed: 16:55:33 PTAGE: 82 years EKG: ATRIAL FIBRILLATION BORDERLINE LEFT AXIS DEVIATION LOW QRS VOLTAGE IN PRECORDIAL LEADS ABNO RMAL RHYTHM ECG Compared to PREVIOUS TRACING atrial fibrillation has replaced Sinus rhythm PREVIOUS TRACIN09/29/2017 19.46 DOCTOR: Stephen Tamayo Interpretating Date/Time 12/29/2017 15:34:31
[2017-12-29] MEDS: Lisinopril 20 MG Tablet PO SCH (21:39)
[2017-12-29 23:31] LABS: % Iron Saturation 4.7 % (20-50)
[2017-12-30 08:39] LABS: Chloride 106 meq/L (98-107); Potassium 3.4 meq/L (3.5-5.1); Sodium 139 meq/L (136-145)
[2017-12-30 08:43] LABS: Anion Gap 8 meq/L (5-15); Blood Urea Nitrogen 8 mg/dL (7-18); Calcium 10.7 mg/dL (8.5-10.1); Carbon Dioxide 25.4 meq/L (21.0-32.0); Glucose,Random 97 mg/dL (74-106)
[2017-12-30 08:47] LABS: Glomerular Filtration Rate Greater Than 89 mL/min (>89)
--- NOTE | 2017-12-30 09:23 | P.PNIM ---
Subjective Interval history: patient seen in follow up for hypercalcemia and weakness. Patient appears to have severe iron deficiency anemia will benefit from IV iron. Status post Lasix and calcium still elevated. Patient does take a lot of calcium at the house this is discussed at length with the granddaughter and patient Physical Exam Vital signs: Vital Signs 12/29/17 12:00 12/29/17 16:00 12/29/17 20:00 Temperature 98.7 F 97.2 F L 96.3 F L Pulse Rate 95 H 86 77 Respiratory Rate 19 19 18 Blood Pressure 135/80 156/72 H 170/80 H Pulse Oximetry 94 L 95 95 12/30/17 00:00 12/30/17 04:00 12/30/17 07:45 Temperature 97.9 F 97.8 F 98.8 F Pulse Rate 91 H 94 H 91 H Respiratory Rate 18 18 20 Blood Pressure 176/87 H 141/91 H 184/92 H Pulse Oximetry 98 96 96 Intake & Output 12/29/17 12/30/17 12/30/17 18:59 06:59 18:59 Intake Total 720 / 720 240 / 240 Output Total 1100 / 1100 200 / 200 Balance 720 / 720 -1100 / -1100 40 / 40 Weight 74.1 kg Intake: Oral 720 / 720 240 / 240 Output: Urine 1100 / 1100 200 / 200 Other: # Voids 5 # Bowel Movements 0 1 Narrative: GENERAL: SKIN: Warm and dry. HEAD: Atraumatic. Normocephalic. EYES: Pupils equal and round. No scleral icterus. No injection or drainage. ENT: No nasal bleeding or discharge. Mucous membranes pink and moist. NECK: Trachea midline. No JVD. CARDIOVASCULAR: Regular rate and rhythm. RESPIRATORY: No accessory muscle use. Clear to auscultation. Breath sounds equal bilaterally. GASTROINTESTINAL: Abdomen soft, non-tender, nondistended. Hepatic and splenic margins not palpable. MUSCULOSKELETAL: Extremities without clubbing, cyanosis, or edema. No obvious deformities. NEUROLOGICAL: Awake and alert. No obvious cranial nerve deficits. Motor grossly within normal limits. Five out of 5 muscle strength in the arms and legs. Normal speech. PSYCHIATRIC: Appropriate mood and affect; insight and judgment normal. Results - Labs CBC & Chem 7: 12/29/17 06:15 12/30/17 08:25 Laboratory Results - last 24 hr 12/29/17 12/29/1718 06:15 11:47 12:10 Sodium Potassium Chloride Carbon Dioxide Anion Gap BUN Creatinine Estimated GFR POC Glucose 118 H Random Glucose Calcium Iron TIBC % Saturation Vitamin B12 TSH 1.720 PTH Intact Less than 6.3 L 12/29/17 12/29/17 12/29/17 16:50 17:07 21:33 Sodium Potassium Chloride Carbon Dioxide Anion Gap BUN Creatinine Estimated GFR POC Glucose 93 90 Random Glucose Calcium Iron 20 L TIBC 423 % Saturation 4.7 L Vitamin B12 573 TSH PTH Intact 12/30/17 12/30/17 07:36 08:25 Sodium 139 Potassium 3.4 L Chloride 106 Carbon Dioxide 25.4 Anion Gap 8 BUN 8 Creatinine 0.59 Estimated GFR Greater than 89 POC Glucose 79 Random Glucose 97 Calcium 10.7 H Iron TIBC % Saturation Vitamin B12 TSH PTH Intact Assessment and Plan - Assessment (1) Hypercalcemia Code(s): E83.52 - Hypercalcemia Status: Acute Plan: lasix, ivf, ptn takes too much calcium follow trend PTH suppressed vit d levels pending Continue with patient education for home medication (2) Atrial fibrillation, transient Code(s): I48.91 - Unspecified atrial fibrillation Status: Acute Plan: chronic, controlled cont eliquis (3) Weakness Code(s): R53.1 - Weakness Status: Acute Plan: unclear but may be multifactorial due to anemia and hypercalcemia Continue with PT , and arrange [facility] (4) Anemia Code(s): D64.9 - Anemia, unspecified Status: Acute Plan: appears to ba iron deficiency, IV Iron - Plan Discharge Plannin-2 days with [facility]
[2017-12-30] MEDS: glipiZIDE 5 MG Tablet PO SCH ×2 (09:36→18:25)
[2017-12-30] MEDS: INVOKANA 100 MG PO SCH (09:37)
[2017-12-30] MEDS: Insulin NovoLOG Aspart Correctional Sugar Inj SQ SCH ×3 (13:18→22:16)
[2017-12-30] MEDS: Senna/Docusate Sodium 8.6/50 MG Tablet PO SCH ×2 (14:35→22:20)
--- NOTE | 2017-12-30 14:53 | P.DCO ---
- Physical Therapy Order: Evaluate and treat, Improve ambulation, Strength and gait training - Home Health Nursing Order: Medical education, Signs/symptoms of disease process, Medication education-adverse effect - Certification I have seen patient Sloane Olmos on 12/30/17. My clinical findings support the need for the requested home health care services because: Limited mobility due to disease progression, Limited ability to care for self I certify that my clinical findings support that this patient is homebound because: Unsteady gait/balance, Unsafe to leave home unassisted
[2017-12-30] MEDS: Iron Sucrose Inj 200 MG in Sodium Chlor 0.9% Inj 100 ML IV.SIG SCH (17:10)
[2017-12-30] MEDS: Lisinopril 20 MG Tablet PO SCH (22:20)
[2017-12-31 06:35] LABS: Hemoglobin 10.8 gm/dL (11.6-15.3); Mean Corpuscular Hemoglobin 20.9 pg (27.0-34.0); Mean Corpuscular Volume 69.7 fL (80.0-100.0); Platelet Count 351 th/mm3 (150-450); Red Blood Count 5.16 mil/mm3 (4.00-5.30); White Blood Count 6.5 th/mm3 (4.0-11.0)
[2017-12-31 06:42] LABS: Chloride 107 meq/L (98-107); Potassium 3.4 meq/L (3.5-5.1); Sodium 140 meq/L (136-145)
[2017-12-31 06:50] LABS: Anion Gap 8 meq/L (5-15); Blood Urea Nitrogen 9 mg/dL (7-18); Carbon Dioxide 24.7 meq/L (21.0-32.0); Glucose,Random 118 mg/dL (74-106)
[2017-12-31 06:54] LABS: Glomerular Filtration Rate Greater Than 89 mL/min (>89)
[2017-12-31] MEDS: Senna/Docusate Sodium 8.6/50 MG Tablet PO SCH ×2 (08:34→20:30)
[2017-12-31] MEDS: glipiZIDE 5 MG Tablet PO SCH ×2 (08:34→16:35)
[2017-12-31] MEDS: Insulin NovoLOG Aspart Correctional Sugar Inj SQ SCH ×4 (08:34→20:40)
[2017-12-31] MEDS: Iron Sucrose Inj 200 MG in Sodium Chlor 0.9% Inj 100 ML IV.SIG SCH (09:48)
[2017-12-31] MEDS: INVOKANA 100 MG PO SCH (09:55)
--- NOTE | 2017-12-31 13:03 | P.PNIM ---
Subjective Interval history: Patient seen and evaluated in follow-up for hypercalcemia which appears to be persistent. Calcium 911 despite IV Lasix, fluids and discontinuing her exogenous calcium. Vitamin D level is quite low and parathyroid hormone is suppressed. Care plan discussed with patient and nephrology Physical Exam Vital signs: Vital Signs 12/30/17 15:55 12/30/17 20:00 12/31/17 00:00 Temperature 97.6 F 96.9 F L 97.1 F L Pulse Rate 86 92 H 93 H Respiratory Rate 20 20 20 Blood Pressure 149/74 H 167/94 H 143/87 H Pulse Oximetry 95 97 94 L 12/31/17 08:00 12/31/17 12:00 Temperature 96.1 F L 97.6 F Pulse Rate 100 H 56 L Respiratory Rate 20 20 Blood Pressure 176/98 H 134/86 Pulse Oximetry 93 L 95 Intake & Output 12/30/17 12/31/17 12/31/17 18:59 06:59 18:59 Intake Total 590 / 590 60 / 60 110 / 110 Output Total 200 / 200 Balance 390 / 390 60 / 60 110 / 110 Intake: IV 110 / 110 110 / 110 Venofer Inj 200 MG In NS Inj 110 / 110 110 / 110 100 ML @ 110 mls/hr IV.SIG DAILY DIANA Rx#:[id number] Oral 480 / 480 60 / 60 Output: Urine 200 / 200 Other: # Voids 2 Date of Last Bowel Movement 12/28/17 12/30/17 12/30/17 Narrative: GENERAL: SKIN: Warm and dry. HEAD: Atraumatic. Normocephalic. EYES: Pupils equal and round. No scleral icterus. No injection or drainage. ENT: No nasal bleeding or discharge. Mucous membranes pink and moist. NECK: Trachea midline. No JVD. CARDIOVASCULAR: Regular rate and rhythm. RESPIRATORY: No accessory muscle use. Clear to auscultation. Breath sounds equal bilaterally. GASTROINTESTINAL: Abdomen soft, non-tender, nondistended. Hepatic and splenic margins not palpable. MUSCULOSKELETAL: Extremities without clubbing, cyanosis, or edema. No obvious deformities. NEUROLOGICAL: Awake and alert. No obvious cranial nerve deficits. Motor grossly within normal limits. Five out of 5 muscle strength in the arms and legs. Normal speech. PSYCHIATRIC: Appropriate mood and affect; insight and judgment normal. Results - Labs CBC & Chem 7: 12/31/17 05:48 12/31/17 05:48 Laboratory Results - last 24 hr 12/30/17 12/30/17 12/31/17 08:25 22:15 05:48 WBC 6.5 RBC 5.16 Hgb 10.8 L Hct 36.0 MCV 69.7 L MCH 20.9 L MCHC 30.0 L RDW 17.0 Plt Count 351 MPV 8.0 Sodium Potassium Chloride Carbon Dioxide Anion Gap BUN Creatinine Estimated GFR POC Glucose 111 H Random Glucose Calcium Magnesium Vitamin D 25-Hydroxy 16.2 L 12/31/17 12/31/17 12/31/17 05:48 05:48 07:49 WBC RBC Hgb Hct MCV MCH MCHC RDW Plt Count MPV Sodium 140 Potassium 3.4 L Chloride 107 Carbon Dioxide 24.7 Anion Gap 8 BUN 9 Creatinine 0.61 Estimated GFR Greater than 89 POC Glucose 111 H Random Glucose 118 H Calcium 11.0 H Magnesium 2.0 Vitamin D 25-Hydroxy 12/31/17 10:56 WBC RBC Hgb Hct MCV MCH MCHC RDW Plt Count MPV Sodium Potassium Chloride Carbon Dioxide Anion Gap BUN Creatinine Estimated GFR POC Glucose 117 H Random Glucose Calcium Magnesium Vitamin D 25-Hydroxy Assessment and Plan - Assessment (1) Hypercalcemia Code(s): E83.52 - Hypercalcemia Status: Acute Plan: lasix, ivf, ptn takes too much calcium at home and this is discussed with patn and spouse follow trend PTH suppressed vit d levels low, add Vit D and calcitonin (2) Atrial fibrillation, transient Code(s): I48.91 - Unspecified atrial fibrillation Status: Acute Plan: chronic, controlled cont eliquis (3) Weakness Code(s): R53.1 - Weakness Status: Acute Plan: unclear but may be multifactorial due to anemia and hypercalcemia Continue with PT , and arrange [facility] (4) Anemia Code(s): D64.9 - Anemia, unspecified Status: Acute Plan: appears to be iron deficiency, IV Iron 2/3 - Plan Discharge Plannin-2 days with [facility]
[2017-12-31] MEDS: Calcitonin Salmon Nasal 200 UNITS/Actuation - (3.7 ML) NASAL SCH (13:42)
--- NOTE | 2017-12-31 13:52 | MB ---
cc: Girish Arevalo MD DATE: 12/31/2017 REASON FOR CONSULTATION: Hypercalcemia for management. HISTORY OF PRESENT ILLNESS: This is an 82-year-old female with past medical history of atrial fibrillation, diabetes mellitus, diverticulitis, hyperlipidemia, who came to the hospital with complaint of generalized weakness and frequent falls. I was called to see the patient because of high calcium level. Her calcium level on admission was 10.9 and stayed almost in the same range and increased slightly now to 11.0. The patient was taking some calcium supplement at home. She denies taking any vitamin D. She mainly came in here because she has been falling down at home, has generalized weakness. There is no history of fever. No headache. Denies any loss of consciousness. The patient has a past history of stroke also. She has been in the rehab facility in the past and went home about a month ago. She denies any nausea, vomiting. There is no history of diarrhea. PAST MEDICAL HISTORY: Diabetes mellitus, hyperlipidemia, diverticulitis, history of transient ischemic attack and cerebrovascular accident, atrial fibrillation. PAST SURGICAL HISTORY: History of colonoscopy. REVIEW OF SYSTEMS: Patient has generalized weakness, feeling tired. There is no history of fever. She occasionally feels dizzy, especially when she gets up fast and she has been falling down at home. There is no nausea or vomiting. No shortness of breath. No chest pain. No palpitations. No abdominal pain. No history of diarrhea. She was taking some calcium supplement, but she denies taking any Vitamin D. SOCIAL HISTORY: The patient is . There is no history of smoking or alcoholism. FAMILY HISTORY: Noncontributory. ALLERGIES: SHE HAS NO KNOWN DRUG ALLERGIES. MEDICATIONS: Currently, she is on following medications: Milk of magnesia, Eliquis 5 mg b.i.d., Lipitor 10 mg once a day, Dulcolax 10 mg rectally, calcitonin nasal spray, dextrose, Glipizide 5 mg, i insulin as per sliding scale, iron sucrose, Lactulose, Prinivil 40 mg at bedtime, metoprolol 100 mg daily, Marlene-Colace 1 tablet b.i.d., Senokot 17.2 mg every 12 hours, Restoril 15 mg at bedtime. She was given 1 dose of furosemide today in the afternoon. She was on vitamin D, which has been stopped yesterday. PHYSICAL EXAMINATION: GENERAL: The patient is awake, alert. She is sitting in chair, not in acute distress. VITAL SIGNS: Last blood pressure 134/86, temperature is 97.6, oxygen saturation 95%. HEENT: Pupils are mid-constricted. Nonicteric sclerae. Conjunctivae are pale. NECK: Supple. JVD is not elevated. LUNGS: The patient has bilateral good air entry with occasional wheezing. HEART: S1, S2. Irregular rhythm. ABDOMEN: Soft, lax. No tenderness. Bowel sounds positive. EXTREMITIES: No pedal edema. LABORATORY DATA: WBC count of 6.5, hemoglobin 10.8, platelet count of 351, neutrophils 64.5%. Sodium is 140, potassium 3.4, chloride 107, bicarbonate 24.7, BUN 9, creatinine 0.6, glucose 117, calcium is 11.0, magnesium is 2.0, AST is 19, AST 18, albumin 3.1, total protein 6.9. Vitamin D level was low at 16.2. PTH was 6.3. TSH is 1.7. IMAGING STUDIES: The patient has no recent imaging studies done. ASSESSMENT AND PLAN: 1. Hypercalcemia. 2. History of recurrent falls. 3. Hypertension. 4. Diabetes mellitus. 5. Anemia. The patient has high calcium level and the PTH is low. I will send a PTH-related peptide and also send the phosphorus level. She is started on calcitonin so we will wait and see the response. If the response is not enough, then I will consider giving her pamidronate which is Aredia. Thank you for the consultation and I will follow the patient while she is in the hospital. MD MARC Wang/JONATHAN , 01:30 PM , 01:40 PM
[2017-12-31] MEDS: Lisinopril 20 MG Tablet PO SCH (20:30)
[2018-01-01 07:26] LABS: Chloride 105 meq/L (98-107); Potassium 3.5 meq/L (3.5-5.1); Sodium 140 meq/L (136-145)
[2018-01-01 07:29] LABS: Calcium 11.2 mg/dL (8.5-10.1)
[2018-01-01 07:30] LABS: Anion Gap 8 meq/L (5-15); Blood Urea Nitrogen 9 mg/dL (7-18); Carbon Dioxide 26.7 meq/L (21.0-32.0); Glucose,Random 82 mg/dL (74-106)
[2018-01-01 07:33] LABS: Glomerular Filtration Rate Greater Than 89 mL/min (>89)
[2018-01-01] MEDS: Calcitonin Salmon Nasal 200 UNITS/Actuation - (3.7 ML) NASAL SCH (08:06)
[2018-01-01] MEDS: glipiZIDE 5 MG Tablet PO SCH ×2 (08:08→16:54)
[2018-01-01] MEDS: Senna/Docusate Sodium 8.6/50 MG Tablet PO SCH ×2 (08:09→21:53)
[2018-01-01] MEDS: INVOKANA 100 MG PO SCH (08:10)
[2018-01-01 09:15] VITALS: RESP 18
[2018-01-01] MEDS ORDERED: Ibuprofen 600 MG Tablet PO PRN (11:39)
--- NOTE | 2018-01-01 11:46 | P.PNIM ---
Subjective Interval history: Patient reports she is feeling better overall. Generalized weakness persist. Discussed with her and granddaughter at bedside. They report the patient has been having periods of increasing confusions over the past month. Her memory has been declining. They are concerned about dementia. Physical Exam Vital signs: Vital Signs 12/31/17 12:00 12/31/17 16:00 12/31/17 20:00 Temperature 97.6 F 97.2 F L 96 F L Pulse Rate 56 L 104 H 91 H Respiratory Rate 20 20 20 Blood Pressure 134/86 124/89 120/79 Pulse Oximetry 95 93 L 97 01/01/18 00:00 01/01/18 08:00 Temperature 97.7 F 97.0 F L Pulse Rate 97 H 96 H Respiratory Rate 20 18 Blood Pressure 127/90 121/80 Pulse Oximetry 96 97 Intake & Output 12/31/17 01/01/18 01/01/18 18:59 06:59 18:59 Intake Total 610 / 610 Balance 610 / 610 Intake: IV 110 / 110 Venofer Inj 200 MG In NS Inj 110 / 110 100 ML @ 110 mls/hr IV.SIG DAILY DIANA Rx#:[id number] Oral 500 / 500 Other: # Voids 2 Date of Last Bowel Movement 12/30/17 12/30/17 12/30/17 Narrative: GENERAL: Obese female in no acute distress. NECK: Trachea midline. No JVD. CARDIOVASCULAR: Regular rate and rhythm. RESPIRATORY: No accessory muscle use. Clear to auscultation. Breath sounds equal bilaterally. GASTROINTESTINAL: Abdomen soft, non-tender, nondistended. MUSCULOSKELETAL: Extremities without clubbing, cyanosis, or edema. No obvious deformities. NEUROLOGICAL: Awake and alert. No obvious cranial nerve deficits. Generalized weakness. PSYCHIATRIC: Appropriate mood and affect; insight and judgment normal. Results - Labs CBC & Chem 7: 12/31/17 05:48 01/01/18 06:15 Laboratory Results - last 24 hr 12/31/17 12/31/17 12/31/17 14:27 16:39 20:40 Sodium Potassium Chloride Carbon Dioxide Anion Gap BUN Creatinine Estimated GFR POC Glucose 147 H 162 H Random Glucose Calcium Phosphorus 3.7 01/01/18 01/01/18 06:15 07:51 Sodium 140 Potassium 3.5 Chloride 105 Carbon Dioxide 26.7 Anion Gap 8 BUN 9 Creatinine 0.54 Estimated GFR Greater than 89 POC Glucose 83 Random Glucose 82 Calcium 11.2 H Phosphorus Assessment and Plan - Assessment (1) Hypercalcemia Code(s): E83.52 - Hypercalcemia Status: Acute Plan: No improvement yet. Patient has been taking calcium supplements prior to admission. She received IV Lasix, IV fluid without significant response. PTH suppressed vit d levels low, continue Vit D and calcitonin PTHrp levels pending (2) Atrial fibrillation, transient Code(s): I48.91 - Unspecified atrial fibrillation Status: Acute Plan: chronic, rate controlled. cont eliquis (3) Weakness Code(s): R53.1 - Weakness Status: Acute Plan: unclear but may be multifactorial due to anemia and hypercalcemia Continue with PT , and arrange hhc (4) Anemia Code(s): D64.9 - Anemia, unspecified Status: Acute Plan: appears to be iron deficiency, IV Iron 3/3 - Plan Regarding cognitive decline reported by family: It sounds like early dementia. -Discussed with family to discussed this with the PCP for referral to Neurology for formal outpatient neurocognitive testing. Discharge Planning: Plan to DC with home health and physical therapy possibly in 1-2 days.
[2018-01-01] MEDS: Iron Sucrose Inj 200 MG in Sodium Chlor 0.9% Inj 100 ML IV.SIG SCH (12:36)
[2018-01-01] MEDS: Insulin NovoLOG Aspart Correctional Sugar Inj SQ SCH ×3 (12:37→21:53)
[2018-01-01] MEDS ORDERED: Sodium Chloride 0.45 % Inj 1,000 ML IV.CONT SCH (14:30)
[2018-01-01 14:50] LABS: Total Protein 7.1 g/dL (6.4-8.2)
[2018-01-01] MEDS: Lisinopril 20 MG Tablet PO SCH (21:53)
[2018-01-02] MEDS: Insulin NovoLOG Aspart Correctional Sugar Inj SQ SCH ×2 (07:48→11:25)
[2018-01-02] MEDS: INVOKANA 100 MG PO SCH (08:06)
[2018-01-02 08:13] LABS: Hematocrit 31.6 % (35.0-46.0); Hemoglobin 10.3 gm/dL (11.6-15.3); Mean Corpuscular HGB Conc 32.6 % (32.0-36.0); Mean Corpuscular Hemoglobin 22.2 pg (27.0-34.0); Mean Platelet Volume 8.2 fL (7.0-11.0); Platelet Count 347 th/mm3 (150-450); Red Blood Count 4.64 mil/mm3 (4.00-5.30); Red Cell Distribution Width 17.7 % (11.6-17.2); White Blood Count 7.4 th/mm3 (4.0-11.0)
[2018-01-02] MEDS: glipiZIDE 5 MG Tablet PO SCH (08:25)
[2018-01-02 08:39] LABS: Potassium 3.4 meq/L (3.5-5.1)
[2018-01-02 08:45] LABS: Carbon Dioxide 27.4 meq/L (21.0-32.0)
--- NOTE | 2018-01-02 09:16 | P.PNNP ---
Subjective Interval history: This is a late entry, note for 01/01/18. Patient was seen in the afternoon, alert, sitting on chair, no SOB. Physical Exam Vital signs: Vital Signs 01/01/18 12:00 01/01/18 16:00 01/01/18 20:00 Temperature 96.2 F L 98.1 F 97.8 F Pulse Rate 71 97 H 108 H Respiratory Rate 18 18 16 Blood Pressure 160/80 H 123/66 125/78 Pulse Oximetry 95 95 96 01/02/18 00:00 01/02/18 08:00 Temperature 98.0 F 98.2 F Pulse Rate 96 H 72 Respiratory Rate 16 18 Blood Pressure 121/76 149/81 H Pulse Oximetry 96 96 Intake & Output 01/01/18 01/02/18 01/02/18 18:59 06:59 18:59 Intake Total 600 / 600 Balance 600 / 600 Intake: Oral 600 / 600 Other: # Voids 6 Date of Last Bowel Movement 12/30/17 12/30/17 # Bowel Movements 1 Narrative: GENERAL: Obese female in no acute distress. NECK: Trachea midline. No JVD. CARDIOVASCULAR: Regular rate and rhythm. RESPIRATORY: No accessory muscle use. Clear to auscultation. Breath sounds equal bilaterally. GASTROINTESTINAL: Abdomen soft, non-tender, nondistended. MUSCULOSKELETAL: Extremities without clubbing, cyanosis, or edema. No obvious deformities. NEUROLOGICAL: Awake and alert. No obvious cranial nerve deficits. Generalized weakness. PSYCHIATRIC: Appropriate mood and affect; insight and judgment normal. Assessment and Plan - Plan 1. Hypercalcemia. 2. History of recurrent falls. 3. Hypertension. 4. Diabetes mellitus. 5. Anemia. The patient has high calcium level and the PTH is low. The calcium is still almost same. PTH-related peptide is pending, the phosphorus level is normal, not low. She is started on calcitonin so we will wait and see the response. If the Calcium remain high, will consider giving her pamidronate which is [place]. If discharge to follow with her PCP.
[2018-01-02] MEDS: Calcitonin Salmon Nasal 200 UNITS/Actuation - (3.7 ML) NASAL SCH (09:58)
[2018-01-02] MEDS: Senna/Docusate Sodium 8.6/50 MG Tablet PO SCH (09:58)
--- NOTE | 2018-01-02 10:43 | P.DCO ---
- Physical Therapy Order: Evaluate and treat, Improve ambulation, Strength and gait training - Home Health Nursing Order: Medical education, Nursing assessment with vital signs - Certification I have seen patient Sloane Olmos on 01/02/18. My clinical findings support the need for the requested home health care services because: Deconditioned with increased weakness, Limited ability to care for self I certify that my clinical findings support that this patient is homebound because: Unsteady gait/balance
--- NOTE | 2018-01-02 12:29 | P.DS ---
Date of admission: 12/28/17 20:25 Primary care physician: Naheed Green MD Brief History from admission: HPI from the admitting team: Patient is an 82-year-old female with a history of atrial fibrillation has come to the hospital complaining of increased falls and weakness over the last several days her and her daughter and had to help her off the floor several times. Finally she came to the emergency room. She notes no fevers or chills or urinary frequency. She does have evidence of hypercalcemia on exam as well as multiple bruises. She takes calcium at home. She also has a history of atrial fibrillation and this appears to be very rate controlled. 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 She has been in a rehab facility and has been home with home health for about a month. Patient is recommended to be observed in the hospital due to weakness and frequent falls. Update on the day of discharge: Patient reports she is feeling slightly better but remained dependent. She does not want to go to long term facility. Discussed with at bedside. They states they have plenty of help at home to care for her. DS: Diagnosis - Discharge Diagnosis (1) Atrial fibrillation, transient Status: Acute (2) Weakness Status: Acute (3) Hypercalcemia Status: Acute (4) Anemia Status: Acute DS: Medications - Discharge Medications Prescriptions: calcitonin (salmon) 1 sprays NASAL DAILY 30 Days ml DS: Summary Hospital Course: 82-year-old female admitted with worsening generalized weakness, hypercalcemia. Evaluation and treatment because detailed below: Hypercalcemia: Patient was taking calcium supplement prior to admission. She received IV Lasix and IV fluid without significant response. PTH suppressed. vit d levels low, she received vitamin D supplement and was started on calcitonin. PTHrp levels pending. This is a send out lab and patient and family were advised to follow-up with PCP for results. They are aware that her workup is not complete. Other conditions such as multiple myeloma although low on the differential is still possible. This was discussed with the patient and family at length. A repeat BMP is ordered and she is advised to follow-up with PCP. Generalized weakness: Suspect the patient has been having overall decline. Discussed this with the family. They are concerned for cognitive decline, especially her memory. It appears that she may have early dementia. I advised him to follow-up with PCP for neurology referral to consider formal neurocognitive testing. -Patient is discharged home with home health and physical therapy. Family reports they will be able to take care of her at home. Atrial fibrillation, transient chronic, rate controlled. cont eliquis Anemia appears to be iron deficiency, she received 3 doses of iron infusion. - Time Spent with Patient Total time spent providing and/or coordinating discharge services: Less than 30 minutes - Quality: VTE Deep Vein Thrombosis/Pulmonary Embolism Present on Admission: No Exam Vital signs: Vital Signs 01/01/18 16:00 01/01/18 20:00 01/02/18 00:00 Temperature 98.1 F 97.8 F 98.0 F Pulse Rate 97 H 108 H 96 H Respiratory Rate 18 16 16 Blood Pressure 123/66 125/78 121/76 Pulse Oximetry 95 96 96 01/02/18 08:00 Temperature 98.2 F Pulse Rate 72 Respiratory Rate 18 Blood Pressure 149/81 H Pulse Oximetry 96 Intake & Output 01/01/18 01/02/18 01/02/18 18:59 06:59 18:59 Intake Total 600 / 600 Balance 600 / 600 Intake: Oral 600 / 600 Other: # Voids 6 Date of Last Bowel Movement 12/30/17 12/30/17 # Bowel Movements 1 Narrative: GENERAL: Obese female in no acute distress. NECK: Trachea midline. No JVD. CARDIOVASCULAR: Regular rate and rhythm. RESPIRATORY: No accessory muscle use. Clear to auscultation. Breath sounds equal bilaterally. GASTROINTESTINAL: Abdomen soft, non-tender, nondistended. MUSCULOSKELETAL: Extremities without clubbing, cyanosis, or edema. No obvious deformities. NEUROLOGICAL: Awake and alert. No obvious cranial nerve deficits. Generalized weakness. PSYCHIATRIC: Appropriate mood and affect; insight and judgment normal. Results Procedures completed during hospitalization: None Labs on day of discharge: Labs from last 24 hours 01/02/18 01/02/18 01/02/18 11:20 07:44 06:50 WBC RBC Hgb Hct MCV MCH MCHC RDW Plt Count MPV Sodium 140 Potassium 3.4 L Chloride 106 Carbon Dioxide 27.4 Anion Gap 7 BUN 11 Creatinine 0.67 Estimated GFR 84 L POC Glucose 117 H 86 Random Glucose 82 Calcium 11.0 H Prot Corrected Calcium Total Protein Vit D 1,25-Dihydroxy 01/02/18 01/01/18 01/01/18 06:50 21:51 21:50 WBC 7.4 RBC 4.64 Hgb 10.3 L Hct 31.6 L MCV 68.0 L MCH 22.2 L MCHC 32.6 RDW 17.7 H Plt Count 347 MPV 8.2 Sodium Potassium Chloride Carbon Dioxide Anion Gap BUN Creatinine Estimated GFR POC Glucose 185 H 227 H Random Glucose Calcium Prot Corrected Calcium Total Protein Vit D 1,25-Dihydroxy 01/01/18 12/30/17 06:15 11:00 WBC RBC Hgb Hct MCV MCH MCHC RDW Plt Count MPV Sodium 140 Potassium 3.5 Chloride 105 Carbon Dioxide 26.7 Anion Gap 8 BUN 9 Creatinine 0.54 Estimated GFR Greater than 89 POC Glucose Random Glucose 82 Calcium 11.2 H Prot Corrected Calcium 11.3 H Total Protein 7.1 Vit D 1,25-Dihydroxy 71 Discharge Plan - Discharge Disposition Patient Disposition: 01 Discharge Home - Discharge Condition Condition: Stable - Discharge Order Discharge Orders: Discharge Order (Routine); Ordered 01/02/18 Ordered By: Wolfgang Hicks - Discharge Details Anticipated Discharge Date: 01/01/18 - Physicians Team Primary Care Provider: Naheed Green Attending Provider: Wolfgang Hicks Other Providers: Girish Arevalo MD ; [employer],Insurance
[2018-01-05 18:05] VITALS: BP 149/81; PULSE 72; TEMP 98.2; O2SAT 96
== END 2018-01-02 14:00 | disposition home or self-care (01) ==
LOC: PHED 15:42 → PH3 15:42 → PHEDA 15:42 → PH3 21:51
PROVIDERS: ADMIT Family Medicine; ATTEND Family Medicine